=== PATIENT | male | born 1955 | race Caucasian/White ===

== ENCOUNTER 2016-04-07 09:39 | Outpatient (CLI) | payer MEDICARE, OTHER ==
[2016-04-07 10:28] LABS: #Basophils 0.1 thou/uL (0.0-0.2); #Eosinphils 0.3 thou/uL (0.0-0.7); #Lymphocytes 2.7 thou/uL (1.20-3.40); #Monocytes 0.5 thou/uL (0.11-0.59); #Neutrophils 2.4 thou/uL (1.40-6.50); %Basophils 2.3 % (0.0-1.0); %Eosinophils 4.2 % (0.0-10.0); %Lymphocytes 44.6 % (21.0-51.0); %Monocytes 8.9 % (0.0-10.0); Hemoglobin 17.4 g/dL (14.0-18.0); Mean Corpuscular Hemoglobin 31.1 pg (27.0-31.0); Mean Corpuscular Volume 91.5 fl (80.0-94.0); Mean Platelet Volume 8.6 fL (7.4-10.4); Platelet Count 193 thou/uL (130-400); RBC Distribution Width 12.2 % (11.5-14.5)
[2016-04-07 10:56] LABS: ALT (SGPT) 18 U/L (0-55); AST (SGOT) 15 U/L (5-34); Albumin 4.4 g/dL (3.4-4.8); Alkaline Phosphatase 165 U/L (40-150); Anion Gap 19 mmol/L (10-20); BUN (Urea Nitrogen) 16 mg/dL (8.4-25.7); Bilirubin, Direct 0.2 mg/dL (0.1-0.3); Bilirubin, Total 0.6 mg/dL (0.2-1.2); Calc. Creatinine Clearance 0 mL/min (70-130); Calcium 10.3 mg/dL (7.8-10.44); Carbon Dioxide 27 mmol/L (23-31); Chloride 99 mmol/L (98-107); Cholesterol 180 mg/dL (< 200 Desired); Estimated GFR-MDRD 57; Glucose 102 mg/dL (80-115); HDL Cholesterol 30 mg/dL (>60 Neg Risk); LDL Cholesterol, Calculated 94 mg/dL; Potassium 4.6 mmol/L (3.5-5.1); Protein, Total 7.6 g/dL (5.8-8.1); Sodium 140 mmol/L (136-145); Triglycerides 281 mg/dL (Less than 150)
== END 2016-04-07 09:40 | disposition home or self-care (01) ==
LOC: MADLABBHPM 09:39
PROVIDERS: ATTEND Family Medicine
DX: E78.5 Hyperlipidemia, unspecified (principal); F32.9 Major depressive disorder, single episode, unspecified; I25.10 Atherosclerotic heart disease of native coronary artery without angina pectoris; I10 Essential (primary) hypertension
CPT/HCPCS: 80048; 80061; 80076; 84443; 85025

== ENCOUNTER 2016-04-20 13:24 | Outpatient (CLI) | payer MEDICARE, OTHER ==
[2016-04-20 14:15] LABS: Bilirubin Negative (Negative); Blood, Urine Trace (Negative); Glucose, Urine (Dipstick) Negative (Negative); Leukocyte Small (Negative); Nitrite Positive (Negative); Protein, Urine (Dipstick) Negative (Neg-Trace); Urobilinogen 0.2 mg/dL (0.2-1.0); pH, Urine 5.5 (5.0-9.0)
[2016-04-20 14:20] LABS: Clarity Hazy (Clear)
[2016-04-20 14:21] LABS: Bacteria/HPF 1+ HPF (None Seen); RBC/HPF 0-3 HPF (0-3)
[2016-04-20 14:28] LABS: Hemoglobin 14.8 g/dL (14.0-18.0)
[2016-04-20 14:30] LABS: Anion Gap 15 mmol/L (10-20); BUN (Urea Nitrogen) 11 mg/dL (8.4-25.7); Calc. Creatinine Clearance 0 mL/min (70-130); Calcium 9.8 mg/dL (7.8-10.44); Carbon Dioxide 24 mmol/L (23-31); Chloride 106 mmol/L (98-107); Estimated GFR-MDRD 66; Glucose 96 mg/dL (80-115); Potassium 4.4 mmol/L (3.5-5.1); Sodium 141 mmol/L (136-145)
== END 2016-04-20 13:25 | disposition home or self-care (01) ==
LOC: MADLAB 13:24
PROVIDERS: ATTEND Internal Medicine Nephrology
DX: I12.9 Hypertensive chronic kidney disease with stage 1 through stage 4 chronic kidney disease, or unspecified chronic kidney disease (principal); N18.3 Chronic kidney disease, stage 3 (moderate); R80.9 Proteinuria, unspecified; R30.9 Painful micturition, unspecified; R53.83 Other fatigue
CPT/HCPCS: 36415; 80048; 81001; 85014; 85018; 87077; 87086; 87186

== ENCOUNTER 2016-07-15 11:03 | Outpatient (CLI) | payer MEDICARE, OTHER ==
[2016-07-15 11:48] LABS: #Basophils 0.2 thou/uL (0.0-0.2); #Eosinphils 0.2 thou/uL (0.0-0.7); #Lymphocytes 2.6 thou/uL (1.20-3.40); #Monocytes 0.7 thou/uL (0.11-0.59); #Neutrophils 2.4 thou/uL (1.40-6.50); %Basophils 2.9 % (0.0-1.0); %Eosinophils 3.7 % (0.0-10.0); %Lymphocytes 42.5 % (21.0-51.0); %Monocytes 10.9 % (0.0-10.0); %Neutrophils 40.1 % (42.0-75.0); Hemoglobin 16.7 g/dL (14.0-18.0); Mean Corpuscular HGB CONC 33.6 g/dL (32.0-36.0); Mean Corpuscular Hemoglobin 30.3 pg (27.0-31.0); Mean Corpuscular Volume 90.3 fl (80.0-94.0); Mean Platelet Volume 8.3 fL (7.4-10.4); Platelet Count 202 thou/uL (130-400); RBC Distribution Width 12.6 % (11.5-14.5); Red Blood Cell (RBC) Count 5.51 mill/uL (4.70-6.10)
[2016-07-15 12:05] LABS: ALT (SGPT) 13 U/L (0-55); AST (SGOT) 13 U/L (5-34); Albumin 4.2 g/dL (3.4-4.8); Alkaline Phosphatase 134 U/L (40-150); Anion Gap 14 mmol/L (10-20); BUN (Urea Nitrogen) 22 mg/dL (8.4-25.7); Bilirubin, Direct 0.2 mg/dL (0.1-0.3); Bilirubin, Total 0.5 mg/dL (0.2-1.2); Calc. Creatinine Clearance 0 mL/min (70-130); Calcium 9.9 mg/dL (7.8-10.44); Carbon Dioxide 23 mmol/L (23-31); Cardiac Risk 7.4 (Less than 4.5); Chloride 101 mmol/L (98-107); Cholesterol 184 mg/dL (< 200 Desired); Estimated GFR-MDRD 64; Glucose 95 mg/dL (80-115); HDL Cholesterol 25 mg/dL (>60 Neg Risk); LDL Cholesterol, Calculated 104 mg/dL; Potassium 4.4 mmol/L (3.5-5.1); Protein, Total 7.3 g/dL (5.8-8.1); Sodium 134 mmol/L (136-145); Triglycerides 277 mg/dL (Less than 150)
== END 2016-07-15 11:04 ==
LOC: MADLABBHPM 11:03
PROVIDERS: ATTEND Family Medicine
DX: I25.10 Atherosclerotic heart disease of native coronary artery without angina pectoris (principal); E53.9 Vitamin B deficiency, unspecified
CPT/HCPCS: 36415; 80048; 80061; 80076; 82607; 85025

== ENCOUNTER 2016-09-03 09:28 | Outpatient (CLI) | payer MEDICARE, OTHER ==
[2016-09-03 10:16] LABS: #Basophils 0.2 thou/uL (0.0-0.2); #Eosinphils 0.3 thou/uL (0.0-0.7); #Lymphocytes 3.2 thou/uL (1.20-3.40); #Monocytes 0.5 thou/uL (0.11-0.59); #Neutrophils 2.8 thou/uL (1.40-6.50); %Basophils 2.4 % (0.0-1.0); %Eosinophils 4.8 % (0.0-10.0); %Lymphocytes 45.9 % (21.0-51.0); %Monocytes 7.5 % (0.0-10.0); %Neutrophils 39.5 % (42.0-75.0); Mean Corpuscular HGB CONC 33.3 g/dL (32.0-36.0); Mean Corpuscular Hemoglobin 30.1 pg (27.0-31.0); Mean Corpuscular Volume 90.3 fl (80.0-94.0); Mean Platelet Volume 9.1 fL (7.4-10.4); Platelet Count 172 thou/uL (130-400); RBC Distribution Width 12.8 % (11.5-14.5); Red Blood Cell (RBC) Count 5.66 mill/uL (4.70-6.10)
[2016-09-03 10:37] LABS: ALT (SGPT) 14 U/L (8-55); AST (SGOT) 10 U/L (5-34); Albumin 3.9 g/dL (3.4-4.8); Alkaline Phosphatase 149 U/L (40-150); Anion Gap 13 mmol/L (10-20); BUN (Urea Nitrogen) 19 mg/dL (8.4-25.7); Bilirubin, Direct 0.2 mg/dL (0.1-0.3); Bilirubin, Total 0.4 mg/dL (0.2-1.2); Calc. Creatinine Clearance 0 mL/min (70-130); Calcium 9.6 mg/dL (7.8-10.44); Carbon Dioxide 26 mmol/L (23-31); Cardiac Risk 5.4 (Less than 4.5); Chloride 102 mmol/L (98-107); Cholesterol 173 mg/dl (< 200 Desired); Estimated GFR-MDRD 56; Glucose 136 mg/dL (80-115); HDL Cholesterol 32 mg/dL (>60 Neg Risk); LDL Cholesterol, Calculated 88 mg/dL; Protein, Total 7.1 g/dL (5.8-8.1); Sodium 137 mmol/L (136-145); Triglycerides 264 mg/dL (Less than 150)
== END 2016-09-03 09:29 | disposition home or self-care (01) ==
LOC: MADLABBHPM 09:28
PROVIDERS: ATTEND Family Medicine
DX: E78.5 Hyperlipidemia, unspecified (principal); F41.9 Anxiety disorder, unspecified; G45.9 Transient cerebral ischemic attack, unspecified; I25.10 Atherosclerotic heart disease of native coronary artery without angina pectoris
CPT/HCPCS: 36415; 80048; 80061; 80076; 84443; 85025

== ENCOUNTER 2016-09-17 13:24 | Emergency (ER) | payer MEDICARE | END 2016-09-17 14:35 | disposition home or self-care (01) | LOC: MADERS 13:24 | DX: M54.41 Lumbago with sciatica, right side (principal); G47.33 Obstructive sleep apnea (adult) (pediatric); I25.10 Atherosclerotic heart disease of native coronary artery without angina pectoris; K21.9 Gastro-esophageal reflux disease without esophagitis; G43.909 Migraine, unspecified, not intractable, without status migrainosus; J44.9 Chronic obstructive pulmonary disease, unspecified; F41.9 Anxiety disorder, unspecified; F32.9 Major depressive disorder, single episode, unspecified; J45.909 Unspecified asthma, uncomplicated; F17.210 Nicotine dependence, cigarettes, uncomplicated; Z86.73 Personal history of transient ischemic attack (TIA), and cerebral infarction without residual deficits; Z79.899 Other long term (current) drug therapy; Z79.82 Long term (current) use of aspirin | CPT/HCPCS: 99283 ==

== ENCOUNTER 2016-10-21 09:52 | Outpatient (CLI) | payer MEDICARE ==
--- NOTE | 2016-10-21 15:57 | CT ---
CT ABDOMEN AND PELVIS NONCONTRAST 10/21/16 HISTORY: Abdominal pain. IVC filter. COMPARISON: 01/29/16. FINDINGS: Iv contrast was not administered because of inability to gain venous access at the time of the exam. Each renal collecting system and ureter are decompressed without stone evident. Dystrophic peripher al calcification at the right pericardial fat pad has the appearance of an old fat infarct. The gall bladder is surgically absent. No solid organ abnormalities are apparent on the noncontrast enhanced exam. There is calcification in the arterial structures. The urinary bladder is decompressed by Fole y catheter. Diverticula arise from the colon without adjacent inflammation. A [place] type inferior vena cava filter is positioned within the inferior vena cava just below t he level of the renal veins. Romero catheter decompresses the urinary bladder. IMPRESSION: 1. Good CT position of the inferior vena cava filter. 2. Atherosclerosis. 3. Diverticulosis. No evidence of diverticulitis. POS: [facility]
== END 2016-10-21 09:53 | disposition home or self-care (01) ==
LOC: MADCT 09:52
PROVIDERS: ATTEND Family Medicine
DX: I25.10 Atherosclerotic heart disease of native coronary artery without angina pectoris (principal); K57.30 Diverticulosis of large intestine without perforation or abscess without bleeding; I70.90 Unspecified atherosclerosis
CPT/HCPCS: 36415; 74176; 82565

== ENCOUNTER 2016-11-08 13:29 | Emergency (ER) | payer MEDICARE ==
[~2016-11-08 13:29] MED LIST: Sodium Chloride 0.9% 1,000 ML BAG ONE
[2016-11-08] MEDS ORDERED: Ketorolac Tromethamine 30 MG/ML VIAL ONE (14:32)
[2016-11-08] MEDS ORDERED: Ondansetron HCl/PF 4 MG/2 ML Vial ONE (14:32)
[2016-11-08 14:36] LABS: #Basophils 0.1 thou/uL (0.0-0.2); #Eosinphils 0.2 thou/uL (0.0-0.7); #Monocytes 1.4 thou/uL (0.11-0.59); #Neutrophils 8.6 thou/uL (1.40-6.50); %Basophils 0.7 % (0.0-1.0); %Eosinophils 1.4 % (0.0-10.0); %Lymphocytes 22.5 % (21.0-51.0); %Monocytes 10.2 % (0.0-10.0); %Neutrophils 65.2 % (42.0-75.0); Hemoglobin 14.5 g/dL (14.0-18.0); Mean Corpuscular HGB CONC 33.1 g/dL (32.0-36.0); Mean Corpuscular Hemoglobin 29.8 pg (27.0-31.0); Mean Corpuscular Volume 90.2 fl (80.0-94.0); Mean Platelet Volume 8.4 fL (7.4-10.4); Platelet Count 158 thou/uL (130-400); RBC Distribution Width 13.5 % (11.5-14.5); Red Blood Cell (RBC) Count 4.85 mill/uL (4.70-6.10); White Blood Cell (WBC) Count 13.2 thou/uL (4.8-10.8)
[2016-11-08 14:55] LABS: Anion Gap 14 mmol/L (10-20); BUN (Urea Nitrogen) 14 mg/dL (8.4-25.7); Calc. Creatinine Clearance 0 mL/min (70-130); Calcium 9.7 mg/dL (7.8-10.44); Carbon Dioxide 26 mmol/L (23-31); Chloride 99 mmol/L (98-107); Estimated GFR-MDRD 53; Glucose 113 mg/dL (80-115); Potassium 3.9 mmol/L (3.5-5.1); Sodium 135 mmol/L (136-145)
--- NOTE | 2016-11-08 15:15 | CT ---
CT STONE PROTOCOL ABDOMEN AND PELVIS WITHOUT CONTRAST: HISTORY: Right-sided pain for 2 days. Evaluate for stone. COMPARISON: CT abdomen and pelvis without contrast 10/21/16. FINDINGS: There is right pericardiophrenic fat necrosis with peripheral calcifications. No pericardial effusion. Lung bases are clear. No nephroureterolithiasis or hydroureteral nephrosis. No secondary evidence of recently passed ston e. Infrarenal IVC filter is in place. Numerous small left periaortic lymph nodes are present. Moderate diverticular disease of sigmoid co vinay without evidence of active inflammation. Romero catheter has been placed which may be chronic as there is some abnormal wall thickening of the urinary bladder which may be reactive. There has been prior cholecystectomy. There is fatty atrophy of the pancreas. Numerous lymph nodes are present throughout the small bowel mesentery which appear increased in numb er, although not increased in size. Aortic contour is without aneurysmal dilatation. 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 Mild facet arthrosis of the lower lumbar spine. IMPRESSION: 1. No nephroureterolithiasis or hydroureteral nephrosis. No secondary evidence of recently passed stone. 2. Diverticular disease without active inflammation. 3. A few mildly increased in number small bowel mesenteric lymph nodes that may be reactive. 4. Wall thickening of the urinary bladder. This may be sequelae of a chronic indwelling Romero cath eter. POS: [facility]
[2016-11-08 15:24] LABS: Clarity Cloudy (Clear); Glucose, Urine (Dipstick) Negative (Negative); Leukocyte Moderate (Negative); Nitrite Positive (Negative); Protein, Urine (Dipstick) Negative (Neg-Trace)
[2016-11-08 15:25] LABS: Bilirubin Negative (Negative); Blood, Urine Small (Negative)
[2016-11-08 15:28] LABS: RBC/HPF 0-3 HPF (0-3)
[2016-11-08 15:30] LABS: Bacteria/HPF 2+ HPF (None Seen); Crystals/HPF 4+ AMORPH PHOS HPF (Negative); WBC/HPF 21-50 HPF (0-3)
== END 2016-11-08 16:10 | disposition home or self-care (01) ==
LOC: MADERS 13:29
DX: N23 Unspecified renal colic (principal); N39.0 Urinary tract infection, site not specified; G47.33 Obstructive sleep apnea (adult) (pediatric); I25.10 Atherosclerotic heart disease of native coronary artery without angina pectoris; K21.9 Gastro-esophageal reflux disease without esophagitis; F41.9 Anxiety disorder, unspecified; F17.210 Nicotine dependence, cigarettes, uncomplicated; F32.9 Major depressive disorder, single episode, unspecified; J44.9 Chronic obstructive pulmonary disease, unspecified; Z86.711 Personal history of pulmonary embolism; Z86.73 Personal history of transient ischemic attack (TIA), and cerebral infarction without residual deficits
CPT/HCPCS: 36415; 74176; 80048; 81003; 81015; 85025; 96361; 96374; 96375; J1885; J2405; J7050

== ENCOUNTER 2016-11-24 10:03 | Emergency (ER) | payer MEDICARE, OTHER ==
[~2016-11-24 10:03] MED LIST changes: +Sodium Chloride 0.9% 100 ML BAG ONE
[2016-11-24] MEDS ORDERED: Dexamethasone 10 MG/ML VIAL ONE (10:30)
--- NOTE | 2016-11-24 10:42 | RAD ---
UPRIGHT PORTABLE CHEST ONE VIEWS: History: 61-year-old male with dyspnea. Comparison: 09-21-15 FINDINGS: Post underlying sternotomy. Heart size within normal limits. The lungs are clear of acute process. IMPRESSION: No acute intrathoracic disease. Post underlying sternotomy. Stable chest from prior study. POS: [facility]
[2016-11-24 10:54] LABS: #Basophils 0.2 thou/uL (0.0-0.2); #Eosinphils 0.2 thou/uL (0.0-0.7); #Lymphocytes 1.8 thou/uL (1.20-3.40); #Monocytes 0.7 thou/uL (0.11-0.59); #Neutrophils 5.4 thou/uL (1.40-6.50); %Basophils 2.1 % (0.0-1.0); %Eosinophils 2.8 % (0.0-10.0); %Lymphocytes 21.9 % (21.0-51.0); %Monocytes 8.7 % (0.0-10.0); %Neutrophils 64.6 % (42.0-75.0); Hemoglobin 15.8 g/dL (14.0-18.0); Mean Corpuscular HGB CONC 34.6 g/dL (32.0-36.0); Mean Corpuscular Hemoglobin 31.1 pg (27.0-31.0); Mean Corpuscular Volume 89.9 fl (80.0-94.0); Mean Platelet Volume 8.4 fL (7.4-10.4); Platelet Count 180 thou/uL (130-400); RBC Distribution Width 13.3 % (11.5-14.5); Red Blood Cell (RBC) Count 5.08 mill/uL (4.70-6.10); White Blood Cell (WBC) Count 8.4 thou/uL (4.8-10.8)
[2016-11-24 11:05] LABS: ALT (SGPT) 18 U/L (8-55); AST (SGOT) 16 U/L (5-34); Albumin 3.8 g/dL (3.4-4.8); Alkaline Phosphatase 134 U/L (40-150); Anion Gap 13 mmol/L (10-20); BUN (Urea Nitrogen) 13 mg/dL (8.4-25.7); Bilirubin, Total 0.7 mg/dL (0.2-1.2); Calc. Creatinine Clearance 0 mL/min (70-130); Calcium 9.7 mg/dL (7.8-10.44); Carbon Dioxide 24 mmol/L (23-31); Chloride 107 mmol/L (98-107); Estimated GFR-MDRD 64; Globulin 3.2 g/dL (2.4-3.5); Glucose 100 mg/dL (80-115); Sodium 140 mmol/L (136-145)
--- NOTE | 2016-11-24 13:06 | CT ---
CT NECK WITH CONTRAST: Date: 11/24/16 HISTORY: 61-year-old male with burning throat pain since yesterday. FINDINGS: There is diffuse edema causing soft tissue swelling of the larynx, including involvement of bilatera l false vocal cords (and probably the true vocal cords also), bilateral aryepiglottic folds, and epi glottis. The paraglottic fat is infiltrated with edema. There is also increased mucosal enhancement and irregularity of the mucosal surfaces, of the bilateral piriform sinuses, with partial effacement of the piriform sinuses. There is partial effacement of the vallecula. There is edema of the shipping weigher ior pharyngeal wall. No discrete, focal rim enhancing fluid collection is identified to indicate abs cess in the larynx, hypopharynx, or retropharyngeal space. There are anterior metallic plate and scr ews with interbody cage, and successful osseous ankylosis, at C5-6. There is also edema and soft tissue swelling of the adenoids. No definite involvement of the lingual tonsil. Lucas tonsils are either absent or atrophic, and are not involved by the edema. Atherosclerotic calcification of bilateral proximal internal carotid arteries, including carotid bul bs. No other pathology of the carotid space. Scattered bilateral shotty cervical lymph nodes. 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 No pathology of the thyroid gland identified. Lung apices are essentially clear. IMPRESSION: 1. Diffuse, somewhat severe laryngitis, with edema involving the entire larynx and hypopharynx. 2. No abscess identified. 3. Status post anterior cervical fusion and diskectomy at C5-6. POS: [facility]
[2016-11-24] MEDS ORDERED: Clindamycin/D5W 900 mg/50 ml Premix Bag ONE (13:45)
[2016-11-24] MEDS ORDERED: Piperacillin/Tazobactam 4.5 GM VIAL ONE (14:03)
== END 2016-11-24 14:50 | disposition short-term general hospital (02) ==
LOC: MADERS 10:03
DX: J04.30 Supraglottitis, unspecified, without obstruction (principal); I10 Essential (primary) hypertension; I25.10 Atherosclerotic heart disease of native coronary artery without angina pectoris; K21.9 Gastro-esophageal reflux disease without esophagitis; G43.909 Migraine, unspecified, not intractable, without status migrainosus; G47.33 Obstructive sleep apnea (adult) (pediatric); J45.909 Unspecified asthma, uncomplicated; F32.9 Major depressive disorder, single episode, unspecified; F41.9 Anxiety disorder, unspecified; F17.210 Nicotine dependence, cigarettes, uncomplicated; Z79.82 Long term (current) use of aspirin; Z86.73 Personal history of transient ischemic attack (TIA), and cerebral infarction without residual deficits; Z86.711 Personal history of pulmonary embolism; Z79.891 Long term (current) use of opiate analgesic
CPT/HCPCS: 36416; 70491; 71010; 80053; 85025; 85652; 87040; 87077; 87081; 87149; 87430; 96361; 96365; 96368; 96375; J1100; J2543; J3490; J7050

== ENCOUNTER 2016-12-01 15:32 | Outpatient (CLI) | payer MEDICARE | END 2016-12-01 15:33 | disposition home or self-care (01) | LOC: MADLABBHPM 15:32 | PROVIDERS: ATTEND Family Medicine | DX: R78.81 Bacteremia (principal) | CPT/HCPCS: 36415 ==

== ENCOUNTER 2016-12-17 19:48 | Emergency (ER) | payer MEDICARE ==
[2016-12-17] MEDS ORDERED: Ondansetron HCl/PF 4 MG/2 ML Vial ONE (21:10)
[2016-12-17 21:33] LABS: #Basophils 0.1 thou/uL (0.0-0.2); #Eosinphils 0.1 thou/uL (0.0-0.7); #Lymphocytes 1.7 thou/uL (1.20-3.40); #Monocytes 0.5 thou/uL (0.11-0.59); %Basophils 1.1 % (0.0-1.0); %Eosinophils 0.9 % (0.0-10.0); %Lymphocytes 26.8 % (21.0-51.0); %Monocytes 7.9 % (0.0-10.0); %Neutrophils 63.3 % (42.0-75.0); Hemoglobin 16.9 g/dL (14.0-18.0); Mean Corpuscular HGB CONC 32.6 g/dL (32.0-36.0); Mean Corpuscular Hemoglobin 29.1 pg (27.0-31.0); Mean Corpuscular Volume 89.4 fl (80.0-94.0); Mean Platelet Volume 8.2 fL (7.4-10.4); Platelet Count 262 thou/uL (130-400); RBC Distribution Width 12.6 % (11.5-14.5); Red Blood Cell (RBC) Count 5.78 mill/uL (4.70-6.10); White Blood Cell (WBC) Count 6.3 thou/uL (4.8-10.8)
[2016-12-17 21:55] LABS: ALT (SGPT) 29 U/L (8-55); AST (SGOT) 13 U/L (5-34); Albumin 4.2 g/dL (3.4-4.8); Alkaline Phosphatase 144 U/L (40-150); Anion Gap 15 mmol/L (10-20); BUN (Urea Nitrogen) 14 mg/dL (8.4-25.7); Calc. Creatinine Clearance 0 mL/min (70-130); Calcium 11.2 mg/dL (7.8-10.44); Carbon Dioxide 21 mmol/L (23-31); Chloride 108 mmol/L (98-107); Estimated GFR-MDRD 70; Glucose 108 mg/dL (80-115); Potassium 3.9 mmol/L (3.5-5.1); Protein, Total 8.2 g/dL (5.8-8.1); Sodium 140 mmol/L (136-145)
[2016-12-17 21:58] LABS: Lipase Less than 4 U/L (8-78)
[2016-12-17 22:02] LABS: Clarity Cloudy (Clear)
[2016-12-17 22:03] LABS: Bilirubin Small (Negative); Blood, Urine Trace (Negative); Glucose, Urine (Dipstick) Negative (Negative); Leukocyte Large (Negative); Nitrite Positive (Negative); Protein, Urine (Dipstick) > or equal to 300 mg/dL (Neg-Trace); pH, Urine Greater than 9.0 (5.0-9.0)
[2016-12-17 22:04] LABS: Bacteria/HPF 4+ HPF (None Seen); Squamous Epithelial 21-50 HPF (0-3)
[2016-12-17] MEDS ORDERED: Ondansetron ODT 4 MG TAB ONE (22:10)
[2016-12-17] MEDS ORDERED: Nitrofurantoin Monohyd/M-Cryst 100 MG CAP ONE (22:42)
--- NOTE | 2016-12-17 22:42 | RAD ---
EXAM: ONE VIEW CHEST TWO VIEWS ABDOMEN 12/17/16 COMPARISON: 03/09/10, one view chest 11/24/16. FINDINGS: CHEST ONE VIEW: Increased density in the right pericardial region corresponds to calcification noted on stone CT, . Normal cardiac silhouette. Atherosclerosis of the aorta. Pulmonary vessels and hilum are normal. Cos tophrenic angles are clear. Hyperinflation, without consolidation or mass. No pneumothorax or osseou s abnormalities. ABDOMEN TWO VIEWS: Limited evaluation due to motion. Scattered fecal material in a nondistended, nondilated colon. No e vidence of small bowel distention or dilatation. No differential air fluid levels. No pneumoperitone um. No suspicious densities in the abdomen or pelvis. IMPRESSION: 1. No acute cardiopulmonary process. 2. Nonspecific bowel gas pattern. POS: [facility]
== END 2016-12-17 23:15 ==
LOC: MADERS 19:48
DX: N39.0 Urinary tract infection, site not specified (principal); R11.2 Nausea with vomiting, unspecified; G47.33 Obstructive sleep apnea (adult) (pediatric); I25.10 Atherosclerotic heart disease of native coronary artery without angina pectoris; K21.9 Gastro-esophageal reflux disease without esophagitis; J44.9 Chronic obstructive pulmonary disease, unspecified; F41.9 Anxiety disorder, unspecified; F17.210 Nicotine dependence, cigarettes, uncomplicated; F32.9 Major depressive disorder, single episode, unspecified; Z86.73 Personal history of transient ischemic attack (TIA), and cerebral infarction without residual deficits; Z79.82 Long term (current) use of aspirin; Z86.711 Personal history of pulmonary embolism; Z79.899 Other long term (current) drug therapy
CPT/HCPCS: 36416; 74022; 80053; 81003; 81015; 82150; 83690; 85025; 36415-59; J2405; Q0162

== ENCOUNTER 2016-12-20 13:05 | Emergency (ER) | payer MEDICARE, OTHER ==
--- NOTE | 2016-12-20 13:35 | RAD ---
CHEST 1 VIEW: Date: 12/20/16 HISTORY: Chest pain. COMPARISON: 12/17/16. FINDINGS: Cardiac silhouette is magnified by projection. Pulmonary vasculature is unremarkable. Mediastinum is midline with postoperative changes. No lobar consolidation or pneumothorax are apparent. Postoperat luis a changes of the left shoulder are evident. IMPRESSION: Chronic-type findings are stable. No active cardiopulmonary abnormalities are demonstrated. POS: [facility]
[2016-12-20] MEDS ORDERED: Ondansetron ODT 4 MG TAB ONE (13:55)
[2016-12-20] MEDS ORDERED: Lorazepam 2 MG/ML VIAL ONE (14:04)
[2016-12-20 14:23] LABS: Hemoglobin 17.9 g/dL (14.0-18.0); Mean Corpuscular HGB CONC 32.9 g/dL (32.0-36.0); Mean Corpuscular Hemoglobin 29.1 pg (27.0-31.0); Mean Corpuscular Volume 88.5 fL (80.0-94.0); Platelet Count 354 thou/uL (130-400); RBC Distribution Width 12.9 % (11.5-14.5); Red Blood Cell (RBC) Count 6.15 mill/uL (4.70-6.10); White Blood Cell (WBC) Count 12.5 thou/uL (4.8-10.8)
[2016-12-20 14:24] LABS: %Basophils 1.7 % (0.0-1.0); %Eosinophils 1.8 % (0.0-10.0); %Lymphocytes 25.8 % (21.0-51.0); %Neutrophils 60.7 % (42.0-75.0); Mean Platelet Volume 6.9 fL (7.4-10.4)
[2016-12-20 14:25] LABS: #Basophils 0.2 thou/uL (0.0-0.2); #Eosinphils 0.2 thou/uL (0.0-0.7); #Lymphocytes 3.2 thou/uL (1.20-3.40); #Monocytes 1.3 thou/uL (0.11-0.59); #Neutrophils 7.6 thou/uL (1.40-6.50)
[2016-12-20 14:35] LABS: CKMB 5.2 ng/mL (0-6.6)
== END 2016-12-20 17:15 | disposition home or self-care (01) ==
LOC: MADERS 13:05
DX: F43.0 Acute stress reaction (principal); K21.9 Gastro-esophageal reflux disease without esophagitis; G43.909 Migraine, unspecified, not intractable, without status migrainosus; G47.33 Obstructive sleep apnea (adult) (pediatric); F31.9 Bipolar disorder, unspecified; F17.210 Nicotine dependence, cigarettes, uncomplicated; Z86.73 Personal history of transient ischemic attack (TIA), and cerebral infarction without residual deficits
CPT/HCPCS: 71010; 82553; 84484; 85025; 93005; 94760; 96372; J2060; Q0162

== ENCOUNTER 2016-12-21 08:15 | Emergency (ER) | payer MEDICARE ==
[~2016-12-21 08:15] MED LIST changes: -Sodium Chloride 0.9% 100 ML BAG ONE
[2016-12-21] MEDS ORDERED: Ketorolac Tromethamine 30 MG/ML VIAL ONE (09:47)
[2016-12-21] MEDS ORDERED: Ondansetron HCl/PF 4 MG/2 ML Vial ONE (09:47)
[2016-12-21 09:57] LABS: #Basophils 0.1 thou/uL (0.0-0.2); #Eosinphils 0.2 thou/uL (0.0-0.7); #Lymphocytes 3.1 thou/uL (1.20-3.40); #Monocytes 1.1 thou/uL (0.11-0.59); #Neutrophils 5.4 thou/uL (1.40-6.50); %Basophils 0.8 % (0.0-1.0); %Eosinophils 1.8 % (0.0-10.0); %Lymphocytes 31.1 % (21.0-51.0); %Monocytes 11.6 % (0.0-10.0); %Neutrophils 54.7 % (42.0-75.0); Hemoglobin 16.5 g/dL (14.0-18.0); Mean Corpuscular HGB CONC 33.4 g/dL (32.0-36.0); Mean Corpuscular Volume 89.7 fl (80.0-94.0); Mean Platelet Volume 6.6 fL (7.4-10.4); Platelet Count 409 thou/uL (130-400); RBC Distribution Width 12.7 % (11.5-14.5); Red Blood Cell (RBC) Count 5.52 mill/uL (4.70-6.10); White Blood Cell (WBC) Count 9.8 thou/uL (4.8-10.8)
[2016-12-21 10:13] LABS: Clarity Hazy (Clear); Glucose, Urine (Dipstick) 250 mg/dL (Negative); Leukocyte Trace (Negative); Nitrite Negative (Negative); Protein, Urine (Dipstick) 30 mg/dL (Neg-Trace); Specific Gravity, Urine 1.025 (1.005-1.030); Urobilinogen 0.2 mg/dL (0.2-1.0)
[2016-12-21 10:14] LABS: Bacteria/HPF 1+ HPF (None Seen); Bilirubin Small (Negative); Blood, Urine Moderate (Negative); Squamous Epithelial 0-3 HPF (0-3)
[2016-12-21 10:20] LABS: ALT (SGPT) 21 U/L (8-55); AST (SGOT) 16 U/L (5-34); Albumin 4.1 g/dL (3.4-4.8); Alkaline Phosphatase 136 U/L (40-150); Anion Gap 16 mmol/L (10-20); BUN (Urea Nitrogen) 24 mg/dL (8.4-25.7); Calc. Creatinine Clearance 0 mL/min (70-130); Calcium 10.3 mg/dL (7.8-10.44); Carbon Dioxide 19 mmol/L (23-31); Chloride 107 mmol/L (98-107); Estimated GFR-MDRD 61; Globulin 3.3 g/dL (2.4-3.5); Glucose 97 mg/dL (80-115); Potassium 3.8 mmol/L (3.5-5.1); Protein, Total 7.4 g/dL (5.8-8.1); Sodium 138 mmol/L (136-145)
--- NOTE | 2016-12-21 13:27 | CT ---
CT ABDOMEN WITH IV CONTRAST: CT PELVIS WITH CONTRAST: 12/21/2016 HISTORY: Mid and lower abdominal pain, which started today. COMPARISON: Noncontrast study on 11/08/2016, as well as post contrast exam on 10/09/2013. FINDINGS: Again noted is the area of fat necrosis, in an epicardial location, to the right of midline, as well as anteriorly. These areas are incompletely imaged on today's examination but do persist. Post cholecystectomy changes are present. The lung bases, liver, spleen, fatty replaced pancreas, bilateral kidneys, bilateral adrenal glands, and opacified small bowel demonstrate a normal CT appearance. There is colonic diverticulosis involving the sigmoid colon, without CT findings to suggest divertic ulitis. A Romero catheter is seen in a decompressed urinary bladder. The appendix is not visualized and is likely surgically absent. The inferior vena cava filter is again noted in place. There is a focal area of decreased attenuati on seen, centrally within the IVC filter, which is likely artifactual, as there is dense contrast wi thin the IVC, secondary to injection in the right lower extremity. There is no other interval change from the prior studies. Again noted is osteonecrosis involving th e femoral heads bilaterally, without collapse. IMPRESSION: 1. No acute findings are seen in the abdomen or pelvis. 2. Colonic diverticulosis. 3. Post cholecystectomy changes. 4. Osteonecrosis without collapse involving the femoral heads bilaterally, also seen on prior studi es. POS: [facility]
[2016-12-21] MEDS ORDERED: Iopamidol 370 76% 100 ML VIAL ONE (13:46)
== END 2016-12-21 13:25 | disposition home or self-care (01) ==
LOC: MADERS 08:15
DX: K52.9 Noninfective gastroenteritis and colitis, unspecified (principal); N39.0 Urinary tract infection, site not specified; G47.33 Obstructive sleep apnea (adult) (pediatric); I25.10 Atherosclerotic heart disease of native coronary artery without angina pectoris; K21.9 Gastro-esophageal reflux disease without esophagitis; Z86.711 Personal history of pulmonary embolism; I10 Essential (primary) hypertension; J44.9 Chronic obstructive pulmonary disease, unspecified; Z86.73 Personal history of transient ischemic attack (TIA), and cerebral infarction without residual deficits; F41.9 Anxiety disorder, unspecified; F32.9 Major depressive disorder, single episode, unspecified; F17.210 Nicotine dependence, cigarettes, uncomplicated; Z79.899 Other long term (current) drug therapy
CPT/HCPCS: 74177; 80053; 81003; 81015; 85025; 96361; 96374; 96375; J1885; J2405; J7050

== ENCOUNTER 2017-03-09 10:32 | Outpatient (CLI) | payer MEDICARE ==
[2017-03-09 11:24] LABS: Hemoglobin 15.6 g/dL (14.0-18.0); Mean Corpuscular Hemoglobin 30.8 pg (27.0-31.0); Mean Corpuscular Volume 90.5 fl (80.0-94.0); Mean Platelet Volume 7.8 fL (7.4-10.4); Platelet Count 187 thou/uL (130-400); RBC Distribution Width 12.5 % (11.5-14.5); Red Blood Cell (RBC) Count 5.05 mill/uL (4.70-6.10); White Blood Cell (WBC) Count 6.1 thou/uL (4.8-10.8)
[2017-03-09 11:33] LABS: ALT (SGPT) 16 U/L (8-55); AST (SGOT) 12 U/L (5-34); Albumin 4.1 g/dL (3.4-4.8); Alkaline Phosphatase 118 U/L (40-150); Anion Gap 15 mmol/L (10-20); BUN (Urea Nitrogen) 14 mg/dL (8.4-25.7); Calc. Creatinine Clearance 0 mL/min (70-130); Calcium 10.1 mg/dL (7.8-10.44); Carbon Dioxide 26 mmol/L (23-31); Cardiac Risk 6.5 (Less than 4.5); Chloride 104 mmol/L (98-107); Cholesterol 162 mg/dl (< 200 Desired); Estimated GFR-MDRD 80; Globulin 3.3 g/dL (2.4-3.5); Glucose 91 mg/dL (80-115); HDL Cholesterol 25 mg/dL (>60 Neg Risk); LDL Cholesterol, Calculated 93 mg/dL; Potassium 3.8 mmol/L (3.5-5.1); Protein, Total 7.4 g/dL (5.8-8.1); Sodium 141 mmol/L (136-145); Triglycerides 219 mg/dL (Less than 150)
== END 2017-03-09 10:33 | disposition home or self-care (01) ==
LOC: MADLAB 10:32
PROVIDERS: ATTEND Psychiatry & Neurology Psychiatry
DX: Z01.812 Encounter for preprocedural laboratory examination (principal); F33.2 Major depressive disorder, recurrent severe without psychotic features
CPT/HCPCS: 36415; 80053; 80061; 80164; 85027

== ENCOUNTER 2017-03-23 10:00 | Outpatient (CLI) | payer MEDICARE ==
[2017-03-23 10:46] LABS: Hemoglobin 16.7 g/dL (14.0-18.0); Mean Corpuscular HGB CONC 33.1 g/dL (32.0-36.0); Mean Corpuscular Volume 90.5 fl (80.0-94.0); Mean Platelet Volume 7.9 fL (7.4-10.4); Platelet Count 204 thou/uL (130-400); RBC Distribution Width 12.2 % (11.5-14.5); Red Blood Cell (RBC) Count 5.58 mill/uL (4.70-6.10); White Blood Cell (WBC) Count 8.2 thou/uL (4.8-10.8)
[2017-03-23 11:13] LABS: ALT (SGPT) 16 U/L (8-55); AST (SGOT) 15 U/L (5-34); Albumin 4.2 g/dL (3.4-4.8); Alkaline Phosphatase 134 U/L (40-150); Anion Gap 15 mmol/L (10-20); BUN (Urea Nitrogen) 16 mg/dL (8.4-25.7); Bilirubin, Total 0.5 mg/dL (0.2-1.2); Calc. Creatinine Clearance 0 mL/min (70-130); Calcium 10.2 mg/dL (7.8-10.44); Carbon Dioxide 29 mmol/L (23-31); Cardiac Risk 8.7 (Less than 4.5); Chloride 101 mmol/L (98-107); Cholesterol 209 mg/dl (< 200 Desired); Estimated GFR-MDRD 55; Globulin 3.5 g/dL (2.4-3.5); Glucose 90 mg/dL (80-115); HDL Cholesterol 24 mg/dL (>60 Neg Risk); LDL Cholesterol, Calculated 129 mg/dL; Potassium 4.4 mmol/L (3.5-5.1); Protein, Total 7.7 g/dL (5.8-8.1); Sodium 141 mmol/L (136-145); Triglycerides 279 mg/dL (Less than 150)
== END 2017-03-23 10:01 | disposition home or self-care (01) ==
LOC: MADLABBHPM 10:00
PROVIDERS: ATTEND Psychiatry & Neurology Psychiatry
DX: F33.2 Major depressive disorder, recurrent severe without psychotic features (principal)
CPT/HCPCS: 36415; 80053; 80061; 80164; 85027

== ENCOUNTER 2017-04-07 09:39 | Outpatient (CLI) | payer MEDICARE | END 2017-04-07 09:40 | disposition home or self-care (01) | LOC: MADLABBHPM 09:39 | PROVIDERS: ATTEND Psychiatry & Neurology Psychiatry | DX: F33.2 Major depressive disorder, recurrent severe without psychotic features (principal) | CPT/HCPCS: 36415; 80164 ==

== ENCOUNTER 2017-04-23 18:53 | Emergency (ER) | payer MEDICARE, OTHER ==
[2017-04-23] MEDS ORDERED: Promethazine 25 MG TAB ONE (20:05)
--- NOTE | 2017-04-23 20:05 | RAD ---
TWO VIEWS OF THE ABDOMEN UPRIGHT VIEW OF THE CHEST 04/23/17 COMPARISON: 12/17/16 HISTORY: Nausea and vomiting. FINDINGS: Supine and upright views of the abdomen and upright view of the chest shows a nonspecific, nonobstruc malik bowel gas pattern. Cholecystectomy clips are seen. An inferior vena cava filter is visualized. No free air or air fluid levels are seen on upright examination. The heart is normal in size. The patient is status post sternotomy. There is no evidence of consolida tion, mass or pleural effusion. IMPRESSION: Nonobstructive bowel gas pattern. POS: [facility]
[2017-04-23 20:12] LABS: #Basophils 0.1 thou/uL (0.0-0.2); #Eosinphils 0.1 thou/uL (0.0-0.7); #Lymphocytes 1.7 thou/uL (1.20-3.40); #Monocytes 0.6 thou/uL (0.11-0.59); #Neutrophils 5.7 thou/uL (1.40-6.50); %Basophils 1.3 % (0.0-1.0); %Eosinophils 1.1 % (0.0-10.0); %Lymphocytes 20.6 % (21.0-51.0); %Monocytes 7.7 % (0.0-10.0); %Neutrophils 69.3 % (42.0-75.0); Hemoglobin 17.3 g/dL (14.0-18.0); Mean Corpuscular Hemoglobin 29.7 pg (27.0-31.0); Mean Corpuscular Volume 89.9 fl (80.0-94.0); Mean Platelet Volume 7.9 fL (7.4-10.4); Platelet Count 197 thou/uL (130-400); RBC Distribution Width 11.9 % (11.5-14.5); Red Blood Cell (RBC) Count 5.85 mill/uL (4.70-6.10); White Blood Cell (WBC) Count 8.2 thou/uL (4.8-10.8)
[2017-04-23 20:16] LABS: Bilirubin Negative (Negative); Blood, Urine Small (Negative); Glucose, Urine (Dipstick) Negative (Negative); Leukocyte Small (Negative); Nitrite Positive (Negative); Protein, Urine (Dipstick) 30 mg/dL (Neg-Trace); Specific Gravity, Urine 1.015 (1.005-1.030)
[2017-04-23 20:20] LABS: Clarity Hazy (Clear)
[2017-04-23 20:21] LABS: Bacteria/HPF 4+ HPF (None Seen); WBC/HPF 21-50 HPF (0-3)
[2017-04-23 20:32] LABS: ALT (SGPT) 24 U/L (8-55); AST (SGOT) 22 U/L (5-34); Albumin 4.7 g/dL (3.4-4.8); Alkaline Phosphatase 117 U/L (40-150); Anion Gap 19 mmol/L (10-20); BUN (Urea Nitrogen) 13 mg/dL (8.4-25.7); Bilirubin, Total 0.9 mg/dL (0.2-1.2); Calc. Creatinine Clearance 0 mL/min (70-130); Calcium 10.7 mg/dL (7.8-10.44); Carbon Dioxide 21 mmol/L (23-31); Chloride 102 mmol/L (98-107); Estimated GFR-MDRD 70; Globulin 3.8 g/dL (2.4-3.5); Glucose 90 mg/dL (80-115); Lipase 5 U/L (8-78); Potassium 4.2 mmol/L (3.5-5.1); Protein, Total 8.5 g/dL (5.8-8.1); Sodium 138 mmol/L (136-145)
[2017-04-23] MEDS ORDERED: Nitrofurantoin Monohyd/M-Cryst 100 MG CAP ONE (20:49)
== END 2017-04-23 21:20 | disposition home or self-care (01) ==
LOC: MADERS 18:53
DX: N30.00 Acute cystitis without hematuria (principal); K52.9 Noninfective gastroenteritis and colitis, unspecified; G47.33 Obstructive sleep apnea (adult) (pediatric); I25.10 Atherosclerotic heart disease of native coronary artery without angina pectoris; K21.9 Gastro-esophageal reflux disease without esophagitis; G43.909 Migraine, unspecified, not intractable, without status migrainosus; I10 Essential (primary) hypertension; J44.9 Chronic obstructive pulmonary disease, unspecified; F41.9 Anxiety disorder, unspecified; F32.9 Major depressive disorder, single episode, unspecified; F17.210 Nicotine dependence, cigarettes, uncomplicated; Z79.82 Long term (current) use of aspirin; Z79.899 Other long term (current) drug therapy; Z86.73 Personal history of transient ischemic attack (TIA), and cerebral infarction without residual deficits; Z79.02 Long term (current) use of antithrombotics/antiplatelets
CPT/HCPCS: 74022; 80053; 81003; 81015; 83605; 83690; 85025; 87086; 96360; J7050

== ENCOUNTER 2017-05-12 14:43 | Emergency (ER) | payer MEDICARE, OTHER ==
[2017-05-12 15:35] LABS: #Basophils 0.1 thou/uL (0.0-0.2); #Eosinphils 0.2 thou/uL (0.0-0.7); #Lymphocytes 2.5 thou/uL (1.20-3.40); #Monocytes 0.6 thou/uL (0.11-0.59); #Neutrophils 4.2 thou/uL (1.40-6.50); %Basophils 1.7 % (0.0-1.0); %Eosinophils 2.8 % (0.0-10.0); %Lymphocytes 32.5 % (21.0-51.0); %Monocytes 8.4 % (0.0-10.0); %Neutrophils 54.7 % (42.0-75.0); Hemoglobin 17.3 g/dL (14.0-18.0); Mean Corpuscular HGB CONC 33.1 g/dL (32.0-36.0); Mean Corpuscular Hemoglobin 29.3 pg (27.0-31.0); Mean Corpuscular Volume 88.4 fl (80.0-94.0); Mean Platelet Volume 7.2 fL (7.4-10.4); Platelet Count 254 thou/uL (130-400); RBC Distribution Width 11.8 % (11.5-14.5); Red Blood Cell (RBC) Count 5.89 mill/uL (4.70-6.10); White Blood Cell (WBC) Count 7.6 thou/uL (4.8-10.8)
[2017-05-12 15:48] LABS: ALT (SGPT) 25 U/L (8-55); AST (SGOT) 13 U/L (5-34); Albumin 4.3 g/dL (3.4-4.8); Alkaline Phosphatase 146 U/L (40-150); Anion Gap 16 mmol/L (10-20); BUN (Urea Nitrogen) 18 mg/dL (8.4-25.7); Bilirubin, Total 1.3 mg/dL (0.2-1.2); Calc. Creatinine Clearance 0 mL/min (70-130); Calcium 10.9 mg/dL (7.8-10.44); Carbon Dioxide 25 mmol/L (23-31); Chloride 103 mmol/L (98-107); Estimated GFR-MDRD 57; Globulin 3.6 g/dL (2.4-3.5); Glucose 129 mg/dL (80-115); Potassium 3.7 mmol/L (3.5-5.1); Protein, Total 7.9 g/dL (5.8-8.1); Sodium 140 mmol/L (136-145)
[2017-05-12 15:50] LABS: CKMB 1.5 ng/mL (0-6.6); Troponin I Less than 0.010 ng/mL (< 0.028)
[2017-05-12] MEDS ORDERED: Ondansetron ODT 4 MG TAB ONE (16:29)
[2017-05-12] MEDS ORDERED: Aspirin 325 MG TAB ONE (16:29)
--- NOTE | 2017-05-12 16:37 | RAD ---
TWO VIEWS CHEST 05/12/17 PROVIDED CLINICAL HISTORY: Chest pain. FINDINGS: Comparison 03/10/10. Cardiac and mediastinal silhouette is within normal limits. Lungs appear clear. No pleural fluid or p neumothorax apparent. Median sternotomy changes are again noted. IMPRESSION: No evidence for an acute cardiopulmonary process. POS: [facility]
== END 2017-05-12 17:31 | disposition home or self-care (01) ==
LOC: MADERS 14:43
DX: R07.9 Chest pain, unspecified (principal); G47.33 Obstructive sleep apnea (adult) (pediatric); K21.9 Gastro-esophageal reflux disease without esophagitis; G43.909 Migraine, unspecified, not intractable, without status migrainosus; J45.909 Unspecified asthma, uncomplicated; F41.9 Anxiety disorder, unspecified; F32.9 Major depressive disorder, single episode, unspecified; F17.210 Nicotine dependence, cigarettes, uncomplicated; G89.29 Other chronic pain; M54.5 Low back pain; I12.9 Hypertensive chronic kidney disease with stage 1 through stage 4 chronic kidney disease, or unspecified chronic kidney disease; N18.9 Chronic kidney disease, unspecified; Z79.899 Other long term (current) drug therapy; Z86.711 Personal history of pulmonary embolism; Z79.82 Long term (current) use of aspirin
CPT/HCPCS: 36415; 71046; 80053; 82553; 84484; 85025; 85730; 93005; Q0162

== ENCOUNTER 2017-07-30 15:18 | Emergency (ER) | payer MEDICARE, OTHER ==
[2017-07-30] MEDS ORDERED: Azithromycin 250 MG TAB ONE (16:58)
== END 2017-07-30 17:33 | disposition home or self-care (01) ==
LOC: MADERS 15:18
DX: J06.9 Acute upper respiratory infection, unspecified (principal); R11.0 Nausea; I25.10 Atherosclerotic heart disease of native coronary artery without angina pectoris; K21.9 Gastro-esophageal reflux disease without esophagitis; G43.909 Migraine, unspecified, not intractable, without status migrainosus; I10 Essential (primary) hypertension; J44.9 Chronic obstructive pulmonary disease, unspecified; G47.33 Obstructive sleep apnea (adult) (pediatric); F41.9 Anxiety disorder, unspecified; F32.9 Major depressive disorder, single episode, unspecified; F17.210 Nicotine dependence, cigarettes, uncomplicated; Z86.73 Personal history of transient ischemic attack (TIA), and cerebral infarction without residual deficits; Z79.82 Long term (current) use of aspirin; Z79.899 Other long term (current) drug therapy; Z79.02 Long term (current) use of antithrombotics/antiplatelets
CPT/HCPCS: 96372; J1040

== ENCOUNTER 2017-07-31 13:44 | Emergency (ER) | payer MEDICARE ==
[2017-07-31] MEDS ORDERED: Sodium Chloride 0.9% 100 ML BAG ONE (14:30)
[2017-07-31] MEDS ORDERED: Sodium Chloride 0.9% 1,000 ML BAG ONE (14:30)
[2017-07-31] MEDS ORDERED: Ondansetron HCl/PF 4 MG/2 ML Vial ONE (14:34)
[2017-07-31 14:56] LABS: Bilirubin Small (Negative); Blood, Urine Small (Negative); Glucose, Urine (Dipstick) Negative (Negative); Leukocyte Small (Negative); Nitrite Negative (Negative); Protein, Urine (Dipstick) 100 mg/dL (Neg-Trace); Urobilinogen > or = 8.0 mg/dL (0.2-1.0); pH, Urine 8.5 (5.0-9.0)
[2017-07-31 14:58] LABS: Clarity Cloudy (Clear)
[2017-07-31 15:06] LABS: ALT (SGPT) 18 U/L (8-55); AST (SGOT) 17 U/L (5-34); Albumin 4.4 g/dL (3.4-4.8); Alkaline Phosphatase 144 U/L (40-150); Anion Gap 19 mmol/L (10-20); BUN (Urea Nitrogen) 12 mg/dL (8.4-25.7); Bilirubin, Total 2.1 mg/dL (0.2-1.2); Calc. Creatinine Clearance 0 mL/min (70-130); Calcium 10.4 mg/dL (7.8-10.44); Carbon Dioxide 15 mmol/L (23-31); Chloride 107 mmol/L (98-107); Estimated GFR-MDRD 90; Globulin 3.3 g/dL (2.4-3.5); Glucose 91 mg/dL (80-115); Potassium 3.5 mmol/L (3.5-5.1); Protein, Total 7.7 g/dL (5.8-8.1); Sodium 137 mmol/L (136-145)
[2017-07-31 15:07] LABS: Bacteria/HPF 1+ HPF (None Seen); WBC/HPF 21-50 HPF (0-3)
[2017-07-31 15:08] LABS: Crystals/HPF 2+ AMORPH PHOS HPF (Negative)
[2017-07-31 15:13] LABS: Band 5 % (5-11); Lymphocytes 5 % (21-51); MDiff Complete? YES; Mean Corpuscular HGB CONC 34.5 g/dL (32.0-36.0); Mean Corpuscular Hemoglobin 29.2 pg (27.0-31.0); Mean Corpuscular Volume 84.6 fl (80.0-94.0); Mean Platelet Volume 7.4 fL (7.4-10.4); Metamyelocyte 1 % (0-0); Monocytes 1 % (0-10); Neutrophil 88 % (42-75); PLT Morphology Comment Appears Adequate; Platelet Count 223 thou/uL (130-400); RBC Distribution Width 12.7 % (11.5-14.5); RBC Morphology Normal; Red Blood Cell (RBC) Count 5.83 mill/uL (4.70-6.10); White Blood Cell (WBC) Count 16.5 thou/uL (4.8-10.8)
[2017-07-31] MEDS ORDERED: Ketorolac Tromethamine 30 MG/ML VIAL ONE (15:36)
[2017-07-31 15:46] LABS: Bilirubin Negative (Negative); Blood, Urine Trace (Negative); Clarity Clear (Clear); Glucose, Urine (Dipstick) Negative (Negative); Leukocyte Small (Negative); Nitrite Negative (Negative); Protein, Urine (Dipstick) 30 mg/dL (Neg-Trace); pH, Urine 7.5 (5.0-9.0)
[2017-07-31 15:54] LABS: Bacteria/HPF Rare-Few HPF (None Seen)
[2017-07-31] MEDS ORDERED: Metoclopramide HCl 10 MG/2 ML VIAL ONE (16:44)
[2017-07-31] MEDS ORDERED: diphenhydrAMINE 50 MG/ML VIAL ONE (16:44)
[2017-07-31] MEDS ORDERED: Levofloxacin 500 mg/D5W 100 ml Premix Bag ONE (16:44)
== END 2017-07-31 17:49 | disposition short-term general hospital (02) ==
LOC: MADERS 13:44
DX: N39.0 Urinary tract infection, site not specified (principal); R11.2 Nausea with vomiting, unspecified; J44.9 Chronic obstructive pulmonary disease, unspecified; G47.33 Obstructive sleep apnea (adult) (pediatric); I25.10 Atherosclerotic heart disease of native coronary artery without angina pectoris; K21.9 Gastro-esophageal reflux disease without esophagitis; G43.909 Migraine, unspecified, not intractable, without status migrainosus; I10 Essential (primary) hypertension; F32.9 Major depressive disorder, single episode, unspecified; F41.9 Anxiety disorder, unspecified; F17.210 Nicotine dependence, cigarettes, uncomplicated; Z86.73 Personal history of transient ischemic attack (TIA), and cerebral infarction without residual deficits
CPT/HCPCS: 36415; 51701; 80053; 81003; 81015; 83690; 83735; 85025; 96361; 96365; 96367; 96375; J1200; J1885; J1956; J2405; J2765; J7050

== ENCOUNTER 2017-08-03 18:03 | Inpatient (IN) | payer MEDICARE ==
[2017-08-03 18:59] VITALS: BMI 29.7
[2017-08-03] MEDS ORDERED: Nitroglycerin 0.4 MG TAB (25 Tab Bottle) SL PRN (19:44)
[2017-08-03] MEDS ORDERED: Ventolin HFA Inhaler 60 PUFF INHALER INH PRN (19:44)
[2017-08-03] MEDS ORDERED: Docusate 100 MG CAP PO PRN (19:44)
[2017-08-03] MEDS ORDERED: Polyethylene Glycol 3350 17 GM Packet PO PRN (19:53)
[2017-08-03] MEDS: Pregabalin 100 MG CAP PO SCH (20:59)
[2017-08-03] MEDS ORDERED: Non-Formulary Item 1 EACH (Ipratropium-Albuterol [Combivent] 1 PUFF) INH SCH (21:00)
[2017-08-03] MEDS: Furosemide 40 MG TAB PO SCH (21:00)
[2017-08-03] MEDS ORDERED: Doxycycline 100 MG CAP ONE (21:09)
[2017-08-03] MEDS: Doxycycline Hyclate 100 MG TAB PO SCH (21:12)
[2017-08-03] MEDS: Ibuprofen 400 MG TAB PO PRN (21:12)
[2017-08-03] MEDS: traMADol HCl 50 MG TAB PO PRN (23:33)
[2017-08-04] MEDS: Ibuprofen 400 MG TAB PO PRN (03:12)
--- NOTE | 2017-08-04 03:20 | HP ---
DATE OF ADMISSION: 08/03/2017 Admitted to [facility] to extended care on 08/03/2017. CHIEF COMPLAINT: Weakness and urinary tract infection. 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 The patient had been hospitalized at [facility] from 07/31/2017 until 08/03/2017. The patient initially had presented to the emergency room on 0 07/30/2017 just feeling bad, running some fever, and had a lot of head and pulmonary congestion. He w as evaluated and thought to have respiratory infection, was given antibiotics, and sent home. The sienna delgado said by the next day, he was feeling worse. He was extremely weak, could not get up and around , was running fever, and having pain in the right lower quadrant, and was just profoundly weak. He w as taken to the emergency room and found to have urinary tract infection. He underwent a CT scan of the abdomen and pelvis without contrast that showed findings suspicious of cystitis. The kidneys wer e symmetric in size without evidence of perinephric stranding. No overt evidence of a pyelonephritis . He did show evidence of colonic diverticulosis. He had evidence of Morgagni hernia. He has had p revious cholecystectomy and he has an IVC filter. The patient was admitted in the hospital there, wa s hydrated, started on IV antibiotics initially with Zosyn, and was cautiously hydrated. His urine c ulture grew Staph aureus, methicillin resistant, but was sensitive to doxycycline, Septra, and vancom ycin. He was switched to doxycycline 100 mg b.i.d. to be taken for 15 days. He has a history of all ergies to VANCOMYCIN and SULFA DRUGS. During the hospitalization, he complained of lot of headaches that were more severe than usual. He has a history of migraine headaches and he was treated periodic ally with Toradol 15 mg IV and later 30 mg IM that seemed to help. The CT scan of the brain was perf ormed and showed no acute intracranial abnormality. The patient's condition improved. He had a lot of pain in the right lower quadrant that he has had in the past, and I thought this may be from his u rinary tract infection. The patient had his chronic indwelling Romero catheter changed out on 018, and the catheter has been working fine. The patient was left extremely weak and he had requeste d transfer when he was stable to [facility] to [facility] for physical therapy. The patient was seen soon after his arrival at [facility] on 08/03/2017. He was able to give m e a good history of what had happened, about how he started off respiratory symptoms that got worse a nd then resulted in his admission. He said he does have his urinary tract infection and he has had t he severe headache. He still is having some headaches. He has not been given his routine home medic ation in hopes that this would help some. PAST MEDICAL HISTORY: Hospitalized at [facility] from 07/31/2017 to 08/03/2017 for urinary tract infection. The patient has hypertension, coronary artery disease for which he has undergone a coronary artery bypass years ago and also has had stents; presently asymptomatic. The patient has ga stroesophageal reflux disease and hiatal hernia. He has had colon polyps. He has undergone colonosc opy and found to have diverticulosis. Colonoscopy last in 2010. The patient has had a pulmonary emb olism and was treated with IV filtration device in 2013. He has had no recurrence. The patient has BPH. He has a long history of urinary retention for over 20 years. Initially, he was treated with i ntermittent catheterizations and later required placement of a catheter. He has failed multiple atte mpts with removal of the catheter. The patient opted not to have a suprapubic catheter. The patient said he has obstructive sleep apnea, but does not use CPAP since he is intolerant to this. 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 He has bee n tried on a nerve stimulator without success and this was removed in 10/2014; presently under the ca re of a pain management doctor that manages him with Tegretol, Lyrica, and tramadol extended release and also plain tramadol, which works pretty well. He has a history of anxiety disorder; history of d epression, which has been treated and resolved. He goes to [facility] in [place], which has worked excellent for him. PAST SURGICAL HISTORY: He has undergone cholecystectomy; tonsillectomy; adenoidectomy; laminectomies of the lumbar spine; spinal stimulator device placed in and later removed in 2014; sinus surge ry; cervical disk surgery; appendectomy; TURP; removal of testicular cyst; right knee surgery; bilate ral mastoidectomy; bilateral inguinal hernia repair; EGD that was normal in 03/2010; temporary trial of a bladder stimulator, did not work and was removed later; rotator cuff repair of the right shoulde r in 2016. PRESENT MEDICATIONS: Doxycycline 100 mg b.i.d. started on 08/03/2017 and should be taken for 15 days , tramadol ER 200 mg 1 daily, Tegretol 200 mg b.i.d., Lyrica 300 mg b.i.d., docusate calcium 240 mg d aily, Myrbetriq 50 mg daily, furosemide 40 mg b.i.d., DuoNeb 4 times a day and every 4 hours as neede d, albuterol inhaler 2 puffs every 4 hours as needed, Combivent inhaler, Respimat 1 inhalation 4 time s a day, Nitrostat 0.4 mg sublingual p.r.n. chest pain, tramadol 50 mg every 6 hours as needed for pa in, aspirin 81 mg daily, Plavix 75 mg daily, promethazine 25 mg every 12 hours as needed, pantoprazol e 40 mg daily. ALLERGIES: METHADONE, FLOMAX, KEFLEX, SULFA DRUGS, LEVAQUIN, PROPOFOL, HALOPERIDOL, TRAZODONE, [place], ZOCOR, THORAZINE causes agitation, SEROQUEL causes agitation. REVIEW OF SYSTEMS: The patient said he has not had any recent weight gain or loss. He does not thin k he has had fever over the last few days. Head and Neck: The patient said he has had a lot of head aches lately. Thinks may be a recurrence of the migraine. The congestion in his nose is better. Vi jean-claude: No change other than he uses glasses. Hearing: His hearing is poor and he has hearing aids. Pulmonary: The patient said he has been using neb treatments regularly and this helps with his lynne thing. Cardiovascular: No chest pain. Gastrointestinal: No nausea or vomiting. The patient said he has been very constipated. The patient has been having some pain in the right lower quadrant. Ge nitourinary: The patient has an indwelling Romero catheter that he has had for years for urinary rete ntion and refused to have a suprapubic. ADLs: Ordinarily, the patient is independent of his ADLs an d instrumental ADLs. Since his hospitalization, he has been left very weak and having a hard time ge tting around, taking care of himself. HABITS: Alcohol, none. Tobacco, 1 pack a day. SOCIAL HISTORY: The patient is not . The patient lives with his brother. The patient attend s [employer], which has helped him with his anxiety and depression. PHYSICAL EXAMINATION: GENERAL: Shows a pleasant 62-year-old white male who was sitting up in bed. He is alert. He appear s in no acute distress. VITAL SIGNS: Pulse 83, respirations 18, O2 sat 96%, blood pressure 166/89, weight 211. HEAD: Normocephalic. EYES: Pupils are equal, round, and reactive. EARS: TMs are clear. NOSE: Normal. MOUTH AND THROAT: Normal. NECK: Carotids are equal and strong. No bruits. LUNGS: The patient has good breath sounds. There is some mild wheeze on expiration over the left ch est. HEART: Regular rate. No murmurs. He has a well-healed substernal scar. ABDOMEN: There are multiple scars over his abdomen, down the midline and both inguinal areas. The p atient's abdomen is not distended. Abdomen is soft. There is no organomegaly. There is no guarding or rebound tenderness. The patient is a little tender in the right lower quadrant. GENITOURINARY: The patient is a circumcised male, both testes descended. He has an indwelling Romero catheter. Urine is clear. EXTREMITIES: His lower extremities have no edema. NEUROLOGIC: The patient is alert, oriented x3 with no focal weakness. IMPRESSION: 1. Generalized weakness and deconditioning. A. Secondary to acute illness requiring hospitalization at [facility]. 2. Hospitalized at [facility] from 07/31/2017 to 08/03/2017 for urinary tract infection. 3. Urinary tract infection. A. Urine culture collected on 07/31/2017 grew methicillin-resistant Staph aureus and sensitive to do xycycline, sulfa, and vancomycin. B. On doxycycline 100 mg b.i.d. started on 08/03/2017 and to be taken for 15 days. Allergic to SULF A DRUGS and VANCOMYCIN. 4. Right lower quadrant pain. A. Etiology, suspect related to urinary tract infection. B. Also, could be possibly secondary to previous adhesions. The patient had multiple operations. R ecent CT scan showed no acute intra-abdominal problem. 5. Coronary artery disease. A. Status post coronary artery bypass years ago. B. Status post stents. C. Presently asymptomatic. 6. Chronic obstructive pulmonary disease. 7. Hypertension. 8. History of transient ischemic attack manifested with mild right-sided paresthesia in 06/2015. No recurrence. 9. Anxiety disorder, controlled. 10. History of depression. A. Presently off medication and resolved. B. Continues to be seen at [facility]. 11. Constipation. 12. Chronic pain. A. Secondary to a failed surgical back syndrome. B. Managed with tramadol ER and regular tramadol, Tegretol, and Lyrica. 13. Cigarette abuse. 14. Peripheral neuropathy of the lower extremities. 15. Headaches, history of migraine headaches. PLAN: The patient had been admitted to [facility] primarily for his deconditioning and weaknes s. He is also having some pain in the right lower quadrant that feel like this is probably from the recent UTI and/or abdominal adhesions from the multiple surgeries. CT showed no evidence of any acut e intra-abdominal problem. The patient also has been having headaches that may be from the exacerbat ion of migraine and recent acute illness. PT and OT will work with him to try to improve his general weakness and conditioning. We will continue him on his routine medication.
[2017-08-04 05:30] LABS: #Basophils 0.2 thou/uL (0.0-0.2); #Eosinphils 0.3 thou/uL (0.0-0.7); #Lymphocytes 2.3 thou/uL (1.20-3.40); #Monocytes 0.6 thou/uL (0.11-0.59); #Neutrophils 3.3 thou/uL (1.40-6.50); %Basophils 2.6 % (0.0-1.0); %Eosinophils 4.8 % (0.0-10.0); %Lymphocytes 34.3 % (21.0-51.0); %Neutrophils 49.3 % (42.0-75.0); Hemoglobin 15.8 g/dL (14.0-18.0); Mean Corpuscular HGB CONC 34.1 g/dL (32.0-36.0); Mean Platelet Volume 6.9 fL (7.4-10.4); Platelet Count 194 thou/uL (130-400); RBC Distribution Width 13.6 % (11.5-14.5); Red Blood Cell (RBC) Count 5.25 mill/uL (4.70-6.10); White Blood Cell (WBC) Count 6.7 thou/uL (4.8-10.8)
[2017-08-04 06:41] LABS: ALT (SGPT) 16 U/L (8-55); AST (SGOT) 17 U/L (5-34); Albumin 3.9 g/dL (3.4-4.8); Alkaline Phosphatase 123 U/L (40-150); Anion Gap 16 mmol/L (10-20); BUN (Urea Nitrogen) 12 mg/dL (8.4-25.7); Bilirubin, Total 0.5 mg/dL (0.2-1.2); Calc. Creatinine Clearance 93 mL/min (70-130); Calcium 10.3 mg/dL (7.8-10.44); Carbon Dioxide 21 mmol/L (23-31); Chloride 109 mmol/L (98-107); Estimated GFR-MDRD 67; Globulin 2.8 g/dL (2.4-3.5); Glucose 97 mg/dL (80-115); Potassium 3.9 mmol/L (3.5-5.1); Protein, Total 6.7 g/dL (5.8-8.1); Sodium 142 mmol/L (136-145)
[2017-08-04] MEDS ORDERED: Ketorolac Tromethamine 60 MG/2 ML VIAL IM PRN (08:07)
[2017-08-04] MEDS: Clopidogrel Bisulfate 75 MG TAB PO SCH (08:47)
[2017-08-04] MEDS: carBAMazepine 200 MG TAB PO SCH ×2 (08:47→16:56)
[2017-08-04] MEDS: Aspirin 81 mg Enteric Coated Tablet PO SCH (08:47)
[2017-08-04] MEDS: Furosemide 40 MG TAB PO SCH ×2 (08:48→20:03)
[2017-08-04] MEDS: Doxycycline Hyclate 100 MG TAB PO SCH (08:48)
[2017-08-04] MEDS: Oxybutynin ER 5 MG TAB PO SCH (08:49)
[2017-08-04] MEDS: Pregabalin 100 MG CAP PO SCH ×2 (08:50→20:04)
[2017-08-04] MEDS: Tramadol Hcl [Tramadol Hcl Er] 200 MG PO SCH (09:03)
[2017-08-04] MEDS: traMADol HCl 50 MG TAB PO PRN (09:03)
--- NOTE | 2017-08-04 11:47 | PRG ---
DATE OF SERVICE: 08/04/2017 SUBJECTIVE: He did not have a good night. He said he is just hurting in the right lower abdomen and also head is just still hurting. He said the medicine has not relieved him. He is just getting suleiman k on his routine medications and he said the Toradol had not helped at [place] they were giving hi m Toradol injections that was helping him. He would like to try these again to see if this would hel p the headaches. He has had no nausea, vomiting, change in his bowel habits. This morning his urine has been real clear. The patient was up at night and had walked outside to smoke. OBJECTIVE: GENERAL: The patient lying in bed. He is alert, oriented x3, appears in no acute distress. VITAL SIGNS: His temp 98.5, pulse 70, respirations 22, O2 sat 97% on room air, blood pressure 159/93 . LUNGS: His lungs are clear. HEART: Regular rate. ABDOMEN: Soft, nontender. There is no guarding or rebound tenderness. ASSESSMENT: 1. Generalized weakness and deconditioning. A. Secondary to acute illness requiring hospitalization at [facility]. B. Improved, ambulating better without assistance as of 08/04/2017. 2. Hospitalized at [facility] from 07/31/2017 to 08/03/2017 for urinary tract infection. 3. Urinary tract infection. A. Urine culture collected on 07/31/2017 grew methicillin-resistant Staph aureus and sensitive to do xycycline, sulfa, and vancomycin. B. On doxycycline 100 mg b.i.d. started on 08/03/2017 and to be taken for 15 days. Allergic to SULF A DRUGS and VANCOMYCIN. 4. Right lower quadrant pain. A. Etiology of this pain in the right lower quadrant has been intermittent through the years. Suspe ct this is secondary to previous adhesions from the multiple operations. Recent CT scan showed no ac nikolski intra-abdominal problem. The urinary tract infection may be contributing. B. A little improved as of 08/04/2017. 5. Coronary artery disease. A. Status post coronary artery bypass years ago. B. Status post stents. C. Presently asymptomatic. 6. Chronic obstructive pulmonary disease. 7. Hypertension. 8. History of transient ischemic attack manifested with mild right-sided paresthesia in 06/2015. No recurrence. 9. Anxiety disorder, controlled. 10. History of depression. A. Presently off medication and resolved. B. Continues to be seen at [facility]. 11. Constipation. 12. Chronic pain. A. Secondary to a failed surgical back syndrome. B. Managed with tramadol ER and regular tramadol, Tegretol, and Lyrica. 13. Cigarette abuse. 14. Peripheral neuropathy of the lower extremities. 15. Headaches, history of migraine headaches. A. Persists as of 08/04/2017. PLAN: The patient is back on his routine chronic pain management, feel like this will help. Explain ed to the patient that his pain is probably all in the right lower quadrant is all from his multiple operations with adhesions and maybe some aggravation recently from the urinary tract infection, and c ystitis. Anticipate this will gradually improve, but with the adhesions he may have intermittent epi sodes in the future. For a couple of days we will order the Toradol 30 mg IM every 8 hours as a fall back for the headaches to use on a p.r.n. basis. The patient did say per Code status that he wanted everything attempted, but it looked like he could recover from then he could be backed off. We will leave him as a FULL CODE.
[2017-08-04] MEDS ORDERED: Ketorolac Tromethamine 30 MG/ML VIAL ONE (12:17)
[2017-08-04] MEDS: Doxycycline 100 MG CAP PO SCH (20:06)
[2017-08-04] MEDS: Ketorolac Tromethamine 30 MG/ML VIAL IM PRN (20:28)
[2017-08-04] MEDS ORDERED: Doxycycline Hyclate 100 MG TAB PO SCH (21:00)
[2017-08-05] MEDS: traMADol HCl 50 MG TAB PO PRN ×2 (00:09→11:52)
[2017-08-05] MEDS: Acetaminophen 325 MG TAB PO PRN (05:46)
[2017-08-05] MEDS: Ketorolac Tromethamine 30 MG/ML VIAL IM PRN ×2 (07:14→20:12)
[2017-08-05] MEDS: carBAMazepine 200 MG TAB PO SCH ×2 (08:12→18:15)
[2017-08-05] MEDS: Furosemide 40 MG TAB PO SCH ×2 (08:13→20:10)
[2017-08-05] MEDS: Doxycycline 100 MG CAP PO SCH ×2 (08:13→20:10)
[2017-08-05] MEDS: Aspirin 81 mg Enteric Coated Tablet PO SCH (08:13)
[2017-08-05] MEDS: Clopidogrel Bisulfate 75 MG TAB PO SCH (08:13)
[2017-08-05] MEDS: Pregabalin 100 MG CAP PO SCH ×2 (08:14→20:11)
[2017-08-05] MEDS: Oxybutynin ER 5 MG TAB PO SCH (08:14)
[2017-08-05] MEDS: Tramadol Hcl [Tramadol Hcl Er] 200 MG PO SCH (08:40)
[2017-08-05] MEDS: Promethazine 25 MG TAB PO PRN (14:15)
[2017-08-05] MEDS: Ibuprofen 400 MG TAB PO PRN (14:16)
[2017-08-06] MEDS: Promethazine 25 MG TAB PO PRN (03:29)
[2017-08-06] MEDS: traMADol HCl 50 MG TAB PO PRN ×3 (03:29→21:15)
[2017-08-06] MEDS: Furosemide 40 MG TAB PO SCH ×2 (08:42→21:14)
[2017-08-06] MEDS: Pregabalin 100 MG CAP PO SCH ×2 (08:43→21:14)
[2017-08-06] MEDS: carBAMazepine 200 MG TAB PO SCH ×2 (08:44→17:13)
[2017-08-06] MEDS: Doxycycline 100 MG CAP PO SCH ×2 (08:44→21:14)
[2017-08-06] MEDS: Clopidogrel Bisulfate 75 MG TAB PO SCH (08:44)
[2017-08-06] MEDS: Aspirin 81 mg Enteric Coated Tablet PO SCH (08:44)
[2017-08-06] MEDS: Oxybutynin ER 5 MG TAB PO SCH (08:51)
[2017-08-06] MEDS: Tramadol Hcl [Tramadol Hcl Er] 200 MG PO SCH (09:48)
[2017-08-06] MEDS: Ketorolac Tromethamine 30 MG/ML VIAL IM PRN (23:42)
[2017-08-07] MEDS: traMADol HCl 50 MG TAB PO PRN ×3 (06:19→20:17)
[2017-08-07] MEDS: Doxycycline 100 MG CAP PO SCH ×2 (08:37→20:15)
[2017-08-07] MEDS: Furosemide 40 MG TAB PO SCH ×2 (08:37→20:16)
[2017-08-07] MEDS: Clopidogrel Bisulfate 75 MG TAB PO SCH (08:37)
[2017-08-07] MEDS: Oxybutynin ER 5 MG TAB PO SCH (08:37)
[2017-08-07] MEDS: carBAMazepine 200 MG TAB PO SCH ×2 (08:37→17:04)
[2017-08-07] MEDS: Pregabalin 100 MG CAP PO SCH ×2 (08:38→20:16)
[2017-08-07] MEDS: Aspirin 81 mg Enteric Coated Tablet PO SCH (08:38)
[2017-08-07] MEDS: Tramadol Hcl [Tramadol Hcl Er] 200 MG PO SCH (08:40)
--- NOTE | 2017-08-07 13:44 | PRG ---
DATE OF SERVICE: 08/05/2017 SUBJECTIVE: The patient said he is doing better. He is walking a little better. He says he is stil l having the headaches, but they are not as severe. He has had to take since he has been here a tota l of 3 of the Toradol. He had one early this morning, but the headaches are much less and he can tel l that are beginning to fade. The pain in the right lower quadrant also was much better. Sometimes, he is entirely free of pain. Other times, just a mild discomfort . He said no vomiting, no change in bowel habits. OBJECTIVE: GENERAL: The patient looks much better today. He appears in no distress. VITAL SIGNS: His temperature is 97.4, pulse 60, respirations 18, O2 sat 99% on room air, blood press ure 125/66. LUNGS: Have some expiratory wheeze, which are chronic, but there are good breath sounds. HEART: Regular rate. EXTREMITIES: No edema. ABDOMEN: Nontender. ASSESSMENT: 1. Generalized weakness and deconditioning. A. Secondary to acute illness requiring hospitalization at [facility]. B. Improved. This morning, he ambulate with the use of a walker as of 08/05/2017. 2. Hospitalized at [facility] from 07/31/2017 to 08/03/2017 for urinary tract infection. 3. Urinary tract infection. A. Urine culture collected on 07/31/2017 grew methicillin-resistant Staph aureus and sensitive to do xycycline, sulfa, and vancomycin. B. On doxycycline 100 mg b.i.d. started on 08/03/2017 and to be taken for 15 days. Allergic to SULF A DRUGS and VANCOMYCIN. C. No dysuria. The right lower quadrant abdominal pain is resolving and he remains afebrile as of 0 08/05/2017. 4. Right lower quadrant pain. A. Etiology of this pain in the right lower quadrant has been intermittent through the years. Suspe ct this is secondary to previous adhesions from the multiple operations. Recent CT scan showed no ac [place] intra-abdominal problem. The urinary tract infection may be contributing. B. Continued improvement with pain, only intermittent and very mild as of 08/05/2017. 5. Coronary artery disease. A. Status post coronary artery bypass years ago. B. Status post stents. C. Presently asymptomatic. 6. Chronic obstructive pulmonary disease. 7. Hypertension. 8. History of transient ischemic attack manifested with mild right-sided paresthesia in 06/2015. No recurrence. 9. Anxiety disorder, controlled. 10. History of depression. A. Presently off medication and resolved. B. Continues to be seen at [facility]. 11. Constipation. 12. Chronic pain. A. Secondary to a failed surgical back syndrome. B. Managed with tramadol ER and regular tramadol, Tegretol, and Lyrica. 13. Cigarette abuse. 14. Peripheral neuropathy of the lower extremities. 15. Headaches, history of migraine headaches. A. Improved as of 08/05/2017. PLAN: Overall, the patient looks better. The abdominal pain felt to be secondary to abdominal adhes ions from all his previous surgeries aggravated possibly by the urinary tract infection with cystitis is improving and is now just intermittent and mild, anticipate this resolving. His headaches are al so improving. the Toradol reduces interval do no more often than ever 12 hours and asked him t o try to get by with tramadol alone. He takes tramadol ER 200 mg daily at home. This is not on the hospital formulary as brother is supposed to bring this from home for him. Continue physical therapy .
[2017-08-07] MEDS: Ketorolac Tromethamine 30 MG/ML VIAL IM PRN (17:39)
[2017-08-07] MEDS: Acetaminophen 325 MG TAB PO PRN (20:17)
[2017-08-08] MEDS: Promethazine 25 MG TAB PO PRN (03:30)
[2017-08-08] MEDS: Acetaminophen 325 MG TAB PO PRN (03:30)
[2017-08-08] MEDS: traMADol HCl 50 MG TAB PO PRN ×2 (03:31→13:27)
[2017-08-08 06:49] VITALS: BP 142/64; TEMP 97.6
[2017-08-08] MEDS: Ketorolac Tromethamine 30 MG/ML VIAL IM PRN (09:02)
[2017-08-08] MEDS: Tramadol Hcl [Tramadol Hcl Er] 200 MG PO SCH (09:03)
[2017-08-08] MEDS: Doxycycline 100 MG CAP PO SCH (09:04)
[2017-08-08] MEDS: Furosemide 40 MG TAB PO SCH (09:04)
[2017-08-08] MEDS: Clopidogrel Bisulfate 75 MG TAB PO SCH (09:04)
[2017-08-08] MEDS: carBAMazepine 200 MG TAB PO SCH (09:04)
[2017-08-08] MEDS: Oxybutynin ER 5 MG TAB PO SCH (09:04)
[2017-08-08] MEDS: Aspirin 81 mg Enteric Coated Tablet PO SCH (09:04)
[2017-08-08] MEDS: Pregabalin 100 MG CAP PO SCH (09:05)
[2017-08-08] MEDS ORDERED: Ibuprofen 400 MG TAB PO PRN (10:45)
--- NOTE | 2017-08-08 15:37 | PRG ---
DATE OF SERVICE: 08/09/2017 SUBJECTIVE: The patient said that he is having a lot of bladder spasms and at home he uses the Myrbe triq and here that substituted the oxybutynin. He said this did not work as well. His brother is anam petit to be bringing his medicine from home and then he can take this. He did not complain of the headac hes this morning nor the abdominal pain. OBJECTIVE: GENERAL: Patient is in no acute distress. VITAL SIGNS: Shows temperature 97.6, pulse 77, respirations 20, O2 saturation 97% on room air, and b lood pressure 142/64. LUNGS: Have expiratory wheezes which are chronic. CARDIAC: Regular rate. EXTREMITIES: No edema. ASSESSMENT: 1. Generalized weakness and deconditioning. A. Secondary to acute illness requiring hospitalization at [facility]. B. Improved. Ambulating further, transferring unassisted. 2. Hospitalized at [facility] from 07/31/2017 to 08/03/2017 for urinary tract infection. 3. Urinary tract infection. A. Urine culture collected on 07/31/2017 grew methicillin-resistant Staph aureus and sensitive to do xycycline, sulfa, and vancomycin. B. On doxycycline 100 mg b.i.d. started on 08/03/2017 and to be taken for 15 days. Allergic to SULF A DRUGS and VANCOMYCIN. C. No dysuria. The right lower quadrant abdominal pain is resolving and he remains afebrile as of 0 08/05/2017. D. Chronic bladder spasms for which he is on Myrbetriq at home. 4. Right lower quadrant pain. A. Etiology of this pain in the right lower quadrant has been intermittent through the years. Suspe ct this is secondary to previous adhesions from the multiple operations. Recent CT scan showed no ac [place] intra-abdominal problem. The urinary tract infection may be contributing. B. Continued improvement with pain, only intermittent and very mild as of 08/08/2017. 5. Coronary artery disease. A. Status post coronary artery bypass years ago. B. Status post stents. C. Presently asymptomatic. 6. Chronic obstructive pulmonary disease. 7. Hypertension. 8. History of transient ischemic attack manifested with mild right-sided paresthesia in 06/2015. No recurrence. 9. Anxiety disorder, controlled. 10. History of depression. A. Presently off medication and resolved. B. Continues to be seen at [facility]. 11. Constipation. 12. Chronic pain. A. Secondary to a failed surgical back syndrome. B. Managed with tramadol ER and regular tramadol, Tegretol, and Lyrica. 13. Cigarette abuse. 14. Peripheral neuropathy of the lower extremities. 15. Headaches, history of migraine headaches. A. Improved as of 08/08/2017. PLAN: We will stop the Toradol. Patient may bring his Myrbetriq from home and use instead of the ox ybutynin for bladder spasm. Continue physical therapy. Anticipated discharge little later this week .
--- NOTE | 2017-08-10 08:49 | DIS ---
Admitted to [facility] on 08/03/2017 and discharged on 08/08/2017. FINAL DIAGNOSES: 1. Generalized weakness and deconditioning. A. Secondary to acute illness requiring hospitalization at [facility]. B. Much improved. The patient ambulated independently and transferring independently as of 08/09/19 18. 2. Hospitalized at [facility] from 07/31/2017 to 08/03/2017 for urinary tract infection. 3. Urinary tract infection. A. Urine culture collected on 07/31/2017 grew methicillin-resistant Staph aureus and sensitive to do xycycline, sulfa, and vancomycin. B. On doxycycline 100 mg b.i.d. started on 08/03/2017 and to be taken for 15 days. Allergic to SULF A DRUGS and VANCOMYCIN. C. No dysuria. The right lower quadrant abdominal pain is resolving and he remains afebrile as of 0 08/08/2017. D. Chronic bladder spasms for which he is on Myrbetriq at home. 4. Right lower quadrant pain. A. Etiology of this pain in the right lower quadrant has been intermittent through the years. Suspe ct this is secondary to previous adhesions from the multiple operations. Recent CT scan showed no ac [place] intra-abdominal problem. The urinary tract infection may be contributing. B. Resolving as of 08/08/2017. 5. Coronary artery disease. A. Status post coronary artery bypass years ago. B. Status post stents. C. Presently asymptomatic. 6. Chronic obstructive pulmonary disease. 7. Hypertension. 8. History of transient ischemic attack manifested with mild right-sided paresthesia in 06/2015. No recurrence. 9. Anxiety disorder, controlled. 10. History of depression. A. Presently off medication and resolved. B. Continues to be seen at [facility]. 11. Constipation. 12. Chronic pain. A. Secondary to a failed surgical back syndrome. B. Managed with tramadol ER and regular tramadol, Tegretol, and Lyrica. 13. Cigarette abuse. 14. Peripheral neuropathy of the lower extremities. 15. Headaches, history of migraine headaches. A. Improved as of 08/08/2017. 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 The patient was hospitalized at [facility] from 07/31/2017 until 08/03/2017 initially presenting in the emergency room with not feeling well, running a fever, extreme headaches, and pulmonary congestion. He underwent thorough evaluation and w as found to have a urinary tract infection. CT scan of the abdomen and pelvis without contrast showe d findings suggestive of a cystitis. Kidneys were symmetric in size and shape. HOSPITAL COURSE: The patient was hospitalized at [facility], initially hydrated with IV flu ids and IV antibiotics using Zosyn. His culture grew a Staph aureus, methicillin resistant that was sensitive to doxycycline, Septra, and vancomycin. He was switched from Zosyn to doxycycline 100 mg b .i.d. and was recommended that this be taken for a 15-day course orally. He is allergic to VANCOMYCI N, SULFA DRUGS. The patient was left a week and wanted to be transferred to [facility] for phy sical therapy. Before he left, he had had a lot of headaches. He did undergo CT scan of the brain t hat showed no acute intracranial abnormality. During this hospitalization, he did complain a lot of right lower quadrant pain and during his hospitalization, received Toradol for pain. The patient was initially seen soon after his admission to [facility]. He complained of the he adaches and right lower quadrant pain. His examination showed lungs with expiratory wheezes, which a re chronic from his COPD. He had some mild tenderness in right lower quadrant. No guarding, rebound tenderness, or organomegaly. The patient had no fever. visited with patient and told him he wanted to get him back on his chronic pain management program, which included his tramadol, tramadol ER, Tegretol, and Lyrica. The patient is under the care of her pain management doctor in the [facility]. His meds were restarted. Did not have the tramadol ER on the formulary, but his brother was due to bring this nor did we have the Myrbetriq for his bladder spasms, which his brother would bring . He was given oxybutynin ER instead. [place] like that his abdominal pain was probably secondary to a dhesions since he had had multiple abdominal surgeries and inguinal surgeries and aggravated recently by the cystitis. During the hospitalization, this seemed to settle. His headaches were still prese nt and thought may be an exacerbation of his migraine. He was given Toradol 30 mg IM every 8 hours p .r.n. The patient's headaches gradually improved and the patient's overall strength improved. He wa s ambulating and walking in the halls on his own and going outside to continue smoking. His abdomen was soft and he had only mild intermittent pains in right lower quadrant, still intermittently had th e headaches. His lungs persisted with the wheezes, which are chronic. He was continued on the doxyc ycline. The patient decided on Tuesday morning, after I had seen him earlier that morning, that he wa s ready to go home. He was discharged and prescription called in for the doxycycline 100 mg b.i.d. f or an additional 10 days, which will complete the 15-day course. DISPOSITION: Diet: Regular diet. No added salt. Activities: The patient is ambulating and transf erring independently. May resume his usual activities. DISCHARGE MEDICATIONS: Doxycycline 100 mg b.i.d. for an additional 10 days, this was called in for h im and this will complete the 10-day course; tramadol ER 200 mg once daily, tramadol 50 mg one every 6 hours as needed for pain; Tegretol 200 mg b.i.d.; Lyrica 300 mg b.i.d.; docusate calcium 240 mg thomas ly; Myrbetriq 50 mg daily; furosemide 40 mg b.i.d.; DuoNeb nebulizer q.i.d. and every 4 hours as need ed; albuterol inhaler 2 puffs every 4 hours as needed; patient also uses a Combivent Respimat 1 inhal ation 4 times a day if needed; nitroglycerin 0.4 mg sublingual p.r.n. chest pain; aspirin 81 mg daily ; Plavix 75 mg daily; promethazine 25 mg every 12 hours as needed for nausea, pantoprazole 40 mg dodie y. FOLLOWUP: The patient should follow up with his pain management doctor. The patient also should fol low up with his urologist, who manages his urinary retention and catheter. The patient should follow up at [facility] for his history of anxiety and depression. The patient should be seen in [place] in 2 weeks. CODE STATUS: FULL CODE.
== END 2017-08-08 14:08 | disposition home health service (06) | DRG 948 ==
LOC: MADMS 18:03
PROVIDERS: ADMIT Family Medicine; ATTEND Family Medicine
DX: R53.1 Weakness (principal); N30.90 Cystitis, unspecified without hematuria; B95.62 Methicillin resistant Staphylococcus aureus infection as the cause of diseases classified elsewhere; N32.89 Other specified disorders of bladder; K66.0 Peritoneal adhesions (postprocedural) (postinfection); I25.10 Atherosclerotic heart disease of native coronary artery without angina pectoris; Z95.1 Presence of aortocoronary bypass graft; J44.9 Chronic obstructive pulmonary disease, unspecified; I10 Essential (primary) hypertension; Z86.73 Personal history of transient ischemic attack (TIA), and cerebral infarction without residual deficits; F41.9 Anxiety disorder, unspecified; K59.00 Constipation, unspecified; G89.29 Other chronic pain; F17.210 Nicotine dependence, cigarettes, uncomplicated; G62.9 Polyneuropathy, unspecified; G43.909 Migraine, unspecified, not intractable, without status migrainosus; M54.5 Low back pain
CPT/HCPCS: 80053; 85025; G8978-GP-CJ; G8979-GP-CI; G8984-GO-CJ; G8985-GO-CH; J1885; J7620

== ENCOUNTER 2018-03-20 13:46 | Outpatient (CLI) | payer MEDICARE ==
[2018-03-20 14:23] LABS: Anion Gap 16 mmol/L (10-20); BUN (Urea Nitrogen) 17 mg/dL (8.4-25.7); Calc. Creatinine Clearance 0 mL/min (70-130); Calcium 10.1 mg/dL (7.8-10.44); Carbon Dioxide 25 mmol/L (23-31); Chloride 103 mmol/L (98-107); Estimated GFR-MDRD 55; Glucose 146 mg/dL (80-115); Potassium 4.2 mmol/L (3.5-5.1); Sodium 140 mmol/L (136-145)
== END 2018-03-20 13:47 | disposition home or self-care (01) ==
LOC: MADLAB 13:46
PROVIDERS: ATTEND Internal Medicine
DX: I34.0 Nonrheumatic mitral (valve) insufficiency (principal)
CPT/HCPCS: 36415; 80048

== ENCOUNTER 2018-05-05 08:48 | Emergency (ER) | payer MEDICARE ==
--- NOTE | 2018-05-05 10:12 | RAD ---
TWO VIEWS RIGHT HIP: COMPARISON: 09/30/2015. HISTORY: Fall 3 days ago with right hip pain. FINDINGS: Two views of the right hip show no evidence of acute fracture or dislocation. No degenerative change s are seen. IMPRESSION: No significant abnormality. POS: [facility]
--- NOTE | 2018-05-05 10:14 | RAD ---
PELVIS 1 VIEW: HISTORY: Injury. COMPARISON: None. FINDINGS: Abnormal sclerosis of both femoral heads. Subcortical lucency of the lateral margin right femoral he ad and neck junction. Obturator rings are intact. 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 POS: [facility]
== END 2018-05-05 10:17 | disposition home or self-care (01) ==
LOC: MADERS 08:48
DX: M25.551 Pain in right hip (principal); G89.29 Other chronic pain; G47.33 Obstructive sleep apnea (adult) (pediatric); I25.10 Atherosclerotic heart disease of native coronary artery without angina pectoris; K21.9 Gastro-esophageal reflux disease without esophagitis; Z86.711 Personal history of pulmonary embolism; G43.909 Migraine, unspecified, not intractable, without status migrainosus; J44.9 Chronic obstructive pulmonary disease, unspecified; F41.9 Anxiety disorder, unspecified; F32.9 Major depressive disorder, single episode, unspecified; F17.210 Nicotine dependence, cigarettes, uncomplicated; Z79.899 Other long term (current) drug therapy; Z79.82 Long term (current) use of aspirin; Z79.51 Long term (current) use of inhaled steroids
CPT/HCPCS: 72170

== ENCOUNTER 2018-07-02 22:51 | Emergency (ER) | payer MEDICARE ==
[2018-07-02] MEDS ORDERED: Ondansetron ODT 4 MG TAB ONE (23:12)
[2018-07-02] MEDS ORDERED: Acetaminophen 500 MG TAB ONE (23:13)
[2018-07-02] MEDS ORDERED: Lidocaine Viscous Sol 2% 15 ml UD Cup ONE (23:13)
[2018-07-02] MEDS ORDERED: Mag-Al Plus 1200 MG/1200 MG/120 MG/30 ML UDCUP ONE (23:13)
== END 2018-07-02 23:34 | disposition home or self-care (01) ==
LOC: MADERS 22:51
DX: M25.551 Pain in right hip (principal); R11.2 Nausea with vomiting, unspecified; F41.9 Anxiety disorder, unspecified; F32.9 Major depressive disorder, single episode, unspecified; G43.909 Migraine, unspecified, not intractable, without status migrainosus; J44.9 Chronic obstructive pulmonary disease, unspecified; K21.9 Gastro-esophageal reflux disease without esophagitis; I25.10 Atherosclerotic heart disease of native coronary artery without angina pectoris; G47.30 Sleep apnea, unspecified; F17.210 Nicotine dependence, cigarettes, uncomplicated; Z86.711 Personal history of pulmonary embolism; Z79.51 Long term (current) use of inhaled steroids; Z79.899 Other long term (current) drug therapy; Z79.82 Long term (current) use of aspirin
CPT/HCPCS: 99283; Q0162

== ENCOUNTER 2018-07-18 15:29 | Emergency (ER) | payer MEDICARE ==
[2018-07-18] MEDS ORDERED: Mag-Al Plus 1200 MG/1200 MG/120 MG/30 ML UDCUP ONE (16:28)
[2018-07-18] MEDS ORDERED: Lidocaine Viscous Sol 2% 15 ml UD Cup ONE (16:28)
[2018-07-18] MEDS ORDERED: Sodium Chloride 0.9% 1,000 ML ONE (16:28)
[2018-07-18] MEDS ORDERED: Ondansetron PF 4 MG/2 ML Vial ONE (16:28)
[2018-07-18 16:37] LABS: %Lymphocytes 26.4 % (21.0-51.0); %Monocytes 7.3 % (0.0-10.0); %Neutrophils 63.3 % (42.0-75.0); Hemoglobin 16.7 g/dL (14.0-18.0); Mean Corpuscular HGB CONC 34.2 g/dL (32.0-36.0); Mean Corpuscular Hemoglobin 29.3 pg (27.0-31.0); Mean Corpuscular Volume 85.8 fL (78.0-98.0); Mean Platelet Volume 7.1 fL (7.4-10.4); Platelet Count 230 thou/uL (130-400); RBC Distribution Width 12.5 % (11.5-14.5); Red Blood Cell (RBC) Count 5.69 mill/uL (4.70-6.10)
[2018-07-18 16:38] LABS: #Basophils 0.2 thou/uL (0.0-0.2); #Eosinphils 0.1 thou/uL (0.0-0.7); #Lymphocytes 2.6 thou/uL (1.20-3.40); #Monocytes 0.7 thou/uL (0.11-0.59); #Neutrophils 6.3 thou/uL (1.40-6.50); %Basophils 2.1 % (0.0-1.0); %Eosinophils 0.8 % (0.0-10.0)
[2018-07-18 16:48] LABS: Carbon Dioxide 22 mmol/L (23-31); Chloride 103 mmol/L (98-107); Potassium 3.4 mmol/L (3.5-5.1); Sodium 139 mmol/L (136-145)
[2018-07-18 16:49] LABS: AST (SGOT) 18 U/L (5-34); Albumin 4.4 g/dL (3.4-4.8); Alkaline Phosphatase 149 U/L (40-150); Anion Gap 17 mmol/L (10-20); BUN (Urea Nitrogen) 16 mg/dL (8.4-25.7); Bilirubin, Total 2.4 mg/dL (0.2-1.2); Calc. Creatinine Clearance 0 mL/min (70-130); Calcium 10.5 mg/dL (7.8-10.44); Estimated GFR-MDRD 65; Globulin 3.3 g/dL (2.4-3.5); Glucose 107 mg/dL (80-115); Protein, Total 7.7 g/dL (5.8-8.1)
[2018-07-18 16:50] LABS: ALT (SGPT) 26 U/L (8-55); Lipase 10 U/L (8-78)
[2018-07-18] MEDS ORDERED: Famotidine In NaCl 20 mg/50 ml Premix Bag ONE (17:05)
[2018-07-18] MEDS ORDERED: Famotidine 20 MG TAB ONE (17:09)
[2018-07-18] MEDS ORDERED: Potassium Chloride 10 MEQ TAB ONE (17:12)
== END 2018-07-18 17:55 | disposition home or self-care (01) ==
LOC: MADERS 15:29
DX: R11.2 Nausea with vomiting, unspecified (principal); R10.10 Upper abdominal pain, unspecified; Z71.6 Tobacco abuse counseling; G47.33 Obstructive sleep apnea (adult) (pediatric); K21.9 Gastro-esophageal reflux disease without esophagitis; Z86.711 Personal history of pulmonary embolism; G43.909 Migraine, unspecified, not intractable, without status migrainosus; J44.9 Chronic obstructive pulmonary disease, unspecified; F41.9 Anxiety disorder, unspecified; F32.9 Major depressive disorder, single episode, unspecified; F17.210 Nicotine dependence, cigarettes, uncomplicated; Z79.899 Other long term (current) drug therapy; Z79.82 Long term (current) use of aspirin; Z79.51 Long term (current) use of inhaled steroids
CPT/HCPCS: 36415; 80053; 83605; 83690; 84484; 85025; 93005; J2405; J7050

== ENCOUNTER 2018-07-18 21:54 | Emergency (ER) | payer MEDICARE ==
[~2018-07-18 21:54] MED LIST changes: +Albuterol Sulfate 2.5 mg/0.5 ml Neb ONE; +Iopamidol 370 76% 100 ML VIAL ONE; -Sodium Chloride 0.9% 1,000 ML BAG ONE
[2018-07-18] MEDS ORDERED: Fentanyl 100 MCG/2 ML VIAL ONE (22:56)
[2018-07-18] MEDS ORDERED: Sodium Chloride 0.9% 100 ML ONE (22:57)
[2018-07-18] MEDS ORDERED: Sodium Chloride 0.9% 1,000 ML ONE (22:57)
[2018-07-18] MEDS ORDERED: Promethazine HCl 25 MG/ML VIAL ONE (22:57)
--- NOTE | 2018-07-19 00:24 | CT ---
CT abdomen with contrast CT pelvis with contrast: DATE: 07/19/2018 HISTORY: 63-year-old male with generalized abdominal pain COMPARISON: 12/21/2016 TECHNIQUE: IV injection of iodinated contrast media:Administered Oral contrast media:Not administered FINDINGS: Sclerotic changes of bilateral capital femoral epiphyses. New finding of cystic bone lesion at the la teral aspect of the right femoral head containing gas. Etiology and significance uncertain. Romero catheter within decompressed urinary bladder. Large number of sigmoid colonic diverticula without sig ns of acute diverticulitis. No hydronephrosis. IVC filter. No abdominal aortic aneurysm. Cholecystectomy clips. No small bowel dilation. No major pathology of liver, pancreas, adrenals, kidn eys, or spleen. No pneumoperitoneum or ascites. Appendix not visualized. No major interval change within the contents of the abdominal cavity and pelvic cavity. Lung bases are grossly clear. IMPRESSION: 1. No acute findings within the abdominal cavity and pelvic cavity. 2. Changes of avascular necrosis involving bilateral femoral heads. 3. Cystic bone lesion in the lateral aspect of right femoral head, containing small amount of gas. Et iology and significance uncertain.
== END 2018-07-19 01:25 | disposition home or self-care (01) ==
LOC: MADERS 21:54
DX: R10.31 Right lower quadrant pain (principal); Z71.6 Tobacco abuse counseling; G47.30 Sleep apnea, unspecified; I25.10 Atherosclerotic heart disease of native coronary artery without angina pectoris; K21.9 Gastro-esophageal reflux disease without esophagitis; Z86.711 Personal history of pulmonary embolism; G43.909 Migraine, unspecified, not intractable, without status migrainosus; Z86.73 Personal history of transient ischemic attack (TIA), and cerebral infarction without residual deficits; F41.9 Anxiety disorder, unspecified; F32.9 Major depressive disorder, single episode, unspecified; F17.210 Nicotine dependence, cigarettes, uncomplicated; Z79.82 Long term (current) use of aspirin; Z79.899 Other long term (current) drug therapy; Z79.51 Long term (current) use of inhaled steroids
CPT/HCPCS: 36415; 74177; 80053; 83605; 83690; 84484; 85025; 93005; 94640; 96361; 96365; 96375; 99406; J2405; J2550; J3010; J3490; J7050; J7611; J7620; Q9967

== ENCOUNTER 2019-01-16 14:10 | Outpatient (CLI) | payer MEDICARE ==
[2019-01-16 15:05] LABS: Bilirubin Negative (Negative); Blood, Urine Trace (Negative); Glucose, Urine (Dipstick) Negative (Negative); Leukocyte Moderate (Negative); Nitrite Positive (Negative); Protein, Urine (Dipstick) 30 mg/dL (Neg-Trace)
[2019-01-16 15:27] LABS: Clarity Cloudy (Clear)
[2019-01-16 15:29] LABS: RBC/HPF 0-3 HPF (0-3)
[2019-01-16 15:30] LABS: Mucous/LPF 2+ LPF (<2+)
[2019-01-16 15:31] LABS: Bacteria/HPF 1+ HPF (None Seen)
== END 2019-01-16 14:11 | disposition home or self-care (01) ==
LOC: MADLAB 14:10
PROVIDERS: ATTEND Family Medicine
DX: N18.9 Chronic kidney disease, unspecified (principal); N31.9 Neuromuscular dysfunction of bladder, unspecified; Z87.440 Personal history of urinary (tract) infections
CPT/HCPCS: 81001; 87086

== ENCOUNTER 2019-06-18 14:22 | Outpatient (CLI) | payer MEDICARE ==
[2019-06-18 14:28] LABS: Bilirubin Small (Negative); Blood, Urine Small (Negative); Clarity Cloudy (Clear); Glucose, Urine (Dipstick) Negative (Negative); Leukocyte Small (Negative); Nitrite Positive (Negative); Protein, Urine (Dipstick) 100 mg/dL (Neg-Trace)
[2019-06-18 14:36] LABS: Bacteria/HPF 3+ HPF (None Seen); Squamous Epithelial 0-3 HPF (0-3); WBC/HPF 21-50 HPF (0-3)
[2019-06-18 14:37] LABS: Triple Phosphate Crystal 2+ HPF (None Seen)
== END 2019-06-18 14:23 | disposition home or self-care (01) ==
LOC: MADLABBHPM 14:22
PROVIDERS: ATTEND Family Medicine
DX: N31.9 Neuromuscular dysfunction of bladder, unspecified (principal); I12.9 Hypertensive chronic kidney disease with stage 1 through stage 4 chronic kidney disease, or unspecified chronic kidney disease; N18.9 Chronic kidney disease, unspecified
CPT/HCPCS: 81001; 87086

== ENCOUNTER 2019-09-18 09:50 | Outpatient (CLI) | payer MEDICARE ==
[2019-09-18 10:13] LABS: #Basophils 0.1 thou/uL (0.0-0.2); #Eosinphils 0.4 thou/uL (0.0-0.7); #Lymphocytes 2.9 thou/uL (1.20-3.40); #Monocytes 0.8 thou/uL (0.11-0.59); #Neutrophils 3.9 thou/uL (1.40-6.50); %Basophils 1.7 % (0.0-1.0); %Eosinophils 4.9 % (0.0-10.0); %Lymphocytes 35.5 % (21.0-51.0); %Monocytes 9.7 % (0.0-10.0); %Neutrophils 48.2 % (42.0-75.0); Hemoglobin 15.7 g/dL (14.0-18.0); Mean Corpuscular HGB CONC 30.7 g/dL (32.0-36.0); Mean Corpuscular Hemoglobin 28.9 pg (27.0-31.0); Mean Corpuscular Volume 93.9 fL (78.0-98.0); Mean Platelet Volume 7.8 fL (7.4-10.4); Platelet Count 239 thou/uL (130-400); RBC Distribution Width 14.1 % (11.5-14.5); Red Blood Cell (RBC) Count 5.44 mill/uL (4.70-6.10); White Blood Cell (WBC) Count 8.2 thou/uL (4.8-10.8)
[2019-09-18 10:25] LABS: ALT (SGPT) 12 U/L (8-55); AST (SGOT) 10 U/L (5-34); Albumin 3.9 g/dL (3.4-4.8); Alkaline Phosphatase 136 U/L (40-110); Anion Gap 15 mmol/L (10-20); BUN (Urea Nitrogen) 8 mg/dL (8.4-25.7); Bilirubin, Total 0.5 mg/dL (0.2-1.2); Calc. Creatinine Clearance 0 mL/min (70-130); Calcium 9.8 mg/dL (7.8-10.44); Carbon Dioxide 25 mmol/L (23-31); Cardiac Risk 3.9 (Less than 4.5); Chloride 109 mmol/L (98-107); Cholesterol 122 mg/dl (< 200 Desired); Estimated GFR-MDRD 79; Globulin 2.5 g/dL (2.4-3.5); Glucose 83 mg/dL (80-115); HDL Cholesterol 31 mg/dL (>60 Neg Risk); LDL Cholesterol, Calculated 66 mg/dL; Protein, Total 6.4 g/dL (5.8-8.1); Sodium 144 mmol/L (136-145); Triglycerides 124 mg/dL (Less than 150)
[2019-09-18 17:15] LABS: Hemoglobin A1c 5.4 % (4.0-6.0)
== END 2019-09-18 09:51 | disposition home or self-care (01) ==
LOC: MADLAB 09:50
PROVIDERS: ATTEND Family Medicine
DX: J44.9 Chronic obstructive pulmonary disease, unspecified (principal); I25.10 Atherosclerotic heart disease of native coronary artery without angina pectoris; R73.01 Impaired fasting glucose
CPT/HCPCS: 80053; 80061; 83036; 85025

== ENCOUNTER 2019-10-10 10:23 | Outpatient (CLI) | payer MEDICARE ==
--- NOTE | 2019-10-10 10:47 | RAD ---
Radiograph right hip 2 views: 10/10/2019 HISTORY: 64-year-old male with chronic right hip pain. COMPARISON: 05/05/2018 FINDINGS: Whereas previously, the femoral head contour was maintained, it is now flattened, with new sclerosis. There is also a irregular curvilinear lucency at the lateral superior aspect of the femoral head consistent with fracture, probably not acute. There is a step-off at the superior lateral articular s urface of the femoral head due to this fracture. There is mild central-medial joint space narrowing. No dislocation. Degenerative bony hypertrophy of acetabular roof has become larger. IMPRESSION: Sequelae of avascular necrosis of the right femoral head, with associated femoral head partial collap se with nonacute fracture, with accelerated secondary osteoarthrosis
== END 2019-10-10 10:24 | disposition home or self-care (01) ==
LOC: MADRAD 10:23
PROVIDERS: ATTEND Family Medicine
DX: M25.551 Pain in right hip (principal); M16.7 Other unilateral secondary osteoarthritis of hip; M87.9 Osteonecrosis, unspecified

== ENCOUNTER 2019-12-26 16:20 | Inpatient (IN) | payer MEDICARE ==
[2019-12-26] MEDS ORDERED: Albuterol 200 PUFF (6.7GM INHALER) INH PRN (18:12)
[2019-12-26] MEDS ORDERED: Docusate 100 MG CAP PO PRN (18:12)
[2019-12-26] MEDS ORDERED: Ondansetron ODT 4 MG TAB PO PRN (18:12)
[2019-12-26] MEDS ORDERED: Nitroglycerin 0.4 MG TAB (25 Tab Bottle) SL PRN (18:12)
[2019-12-26] MEDS: HYDROcodone/Acetaminophen 7.5/325 mg Tablet PO PRN (19:32)
[2019-12-26] MEDS ORDERED: Escitalopram Oxalate 10 mg Tablet PO SCH (21:00)
[2019-12-26] MEDS ORDERED: FLU VACC QS2020-21(65YR UP)/PF 240 MCG/0.7 ML SYRINGE IM ONE (21:00)
[2019-12-26] MEDS: Metoprolol Tartrate 25 MG TAB PO SCH (21:09)
[2019-12-26] MEDS: risperiDONE 1 MG TAB PO SCH (21:09)
[2019-12-26] MEDS: Escitalopram Oxalate 10 mg Tablet PO SCH (21:10)
[2019-12-26] MEDS: Nitrofurantoin Monohyd/M-Cryst 100 MG CAP PO SCH (21:10)
[2019-12-26] MEDS: Pregabalin 75 MG CAP PO SCH (21:10)
[2019-12-26] MEDS: Atorvastatin Calcium 40 MG TAB PO SCH (21:10)
--- NOTE | 2019-12-27 06:31 | HP ---
CHIEF COMPLAINT: Weakness following right hip replacement. HISTORY OF PRESENT ILLNESS: The patient is a 64-year-old white male, who had been hospitalized at [facility] in [place] from 12/24/2019 until 12/26/2019. He has a history of avascular necrosis of the femoral head with severe pain with weightbearing, has been going on for over a year. He was seen in consultation by orthopedic surgeon, Dr. Vargas Bach, and patient was hospitalized at [facility] on 12/24/2019 and underwent a right hip total arthroplasty. The surgery went very well and he has not had any significant postop problems. He has been sent to [facility] for his rehabilitation to help with his severe deconditioning and also to help with his strengthening and gait training. The patient has a history of chronic urinary retention, for which he has an indwelling Romero catheter that has to be changed out every 2 weeks. He recently was found to have a UTI prior to surgery and has been on Macrobid 100 mg b.i.d. The patient has a history of severe COPD, complicated by some hypoxemia, for which he uses O2 at home. The patient was seen in his room after his admission. He said he thinks he is doing just fine. He says he has a pain in that right hip when he gets up and walks, but the pain is different from what it was prior to the surgery. This is more of a burning pain. He says he has been up and walked just a little short distance. His pain is being managed with hydrocodone 7.5 every 4 hours as needed. He said his Romero catheter is changed every 2 weeks and it was last changed out on 12/18/2019. The patient says he does get a little winded with activities from his COPD. He uses oxygen at home. PAST MEDICAL HISTORY: Hospitalized at [facility] from 12/23 until 12/26/2019 for avascular necrosis of the right hip, for which he underwent a right total hip arthroplasty by Dr. Vargas Bach; COPD, complicated by hypoxemia; hypertension; severe depression that is controlled with Lexapro and risperidone; and TIAs manifested with right-sided paresthesia, no recurrence the last 4 years; coronary artery disease, asymptomatic; retention of urine requiring indwelling Romero catheter and requires changing every 2 weeks, has a 24-Belgian Romero with a 30 mL balloon filled with 25 mL of fluid; anxiety disorder; obstructive sleep apnea, intolerant to CPAP; constipation; venous insufficiency of the lower extremities; persistent cigarette abuse; GERD; obesity; peripheral neuropathy of the lower extremities; chronic low back pain secondary to failed surgical back syndrome; hyperlipidemia. The patient has had cardiac stents, coronary artery bypass, cholecystectomy, sinus surgery, cervical disk surgery, appendectomy, TURP, removal of a testicular cyst, right knee surgery, bilateral mastoidectomy, bilateral inguinal hernia repair, spinal stimulator device in his right low back. Colonoscopy shows diverticulosis in 2010. EGD in 2010, normal. IVC filtration device placed in 2013. Nerve stimulator removed from his back in 2014, right rotator cuff repair. PRESENT MEDICATIONS: 1. Risperidone 2 mg at bedtime. 2. Lexapro 20 mg daily. 3. Metoprolol tartrate 25 mg b.i.d. 4. Macrobid 100 mg b.i.d. for 10 days. 5. Hydrocodone and acetaminophen 7.5/325 one every 4 hours as needed. 6. Atorvastatin 40 mg at bedtime. 7. Xarelto 10 mg daily. 8. Combivent 2 puffs q.i.d. 9. Aspirin 81 mg daily. 10. Plavix 75 mg daily. 11. Colace 100 mg daily p.r.n. 12. Furosemide 40 mg daily. 13. Zofran oral disintegrating tablets 4 mg every 6 hours as needed. 14. Nitroglycerin 0.4 mg sublingual p.r.n. chest pain. 15. Pantoprazole 40 mg b.i.d. 16. Lyrica 300 mg b.i.d. 17. Clonazepam 1 mg daily. ALLERGIES: METHADONE; FLOMAX; KEFLEX; SULFACETAMIDE; LEVAQUIN; HALOPERIDOL; TRAZODONE; DETROL; ZOCOR; THORAZINE CAUSE AGITATION; SEROQUEL, AGITATION; SYMBICORT, HOARSENESS; ANCEF; CEPHALEXIN; VANCOMYCIN CAUSES ANAPHYLAXIS; AND PROPOFOL CAUSES ANAPHYLAXIS. REVIEW OF SYSTEMS: CONSTITUTIONAL: Patient said he has not had any recent weight gain or loss. He has had no fever. HEAD AND NECK: No complaints. PULMONARY: Patient said he has a chronic cough from his COPD and gets winded with exertion. He does use his nebulizers and his DuoNebs 4 times a day and every 4 hours as needed. He has oxygen that he uses at home as needed. CARDIOVASCULAR: No chest pain. The patient said he is having a little cramping along his lower chest area when he turns, but just momentarily. GASTROINTESTINAL: No nausea, vomiting. The patient said his bowels have been sluggish since his surgery. GENITOURINARY: The patient has indwelling Romero catheter. It was last changed out on 12/17. This will be changed every 2 weeks with a #24-Belgian, 30 mL balloon filled with 25 mL of fluid. NEUROPSYCHIATRIC: The patient said his depression has been under good control. The patient has had no increased weakness in arms or legs. ADLs: The patient is independent of his ADLs and has indwelling Romero catheter. HABITS: The patient smokes a little less than a pack of cigarettes a day. Alcohol, none. SOCIAL HISTORY: The patient lives by himself. CODE STATUS: Full code. PHYSICAL EXAMINATION: GENERAL: Shows a pleasant 64-year-old white male, who is sitting up in bed. He is alert, talkative, oriented x3, recognizes me. VITAL SIGNS: Temperature 98.2, pulse 74, respirations 24, O2 saturation 91% on 4 L, blood pressure 109/73. HEENT: Head is normocephalic. Eyes, pupils are equal, round, and reactive. Ears, TMs are clear. Nose normal. Mouth and throat are normal. NECK: Carotids are equal and strong. No bruits. Thyroid is not enlarged. LUNGS: The patient has moderate breath sounds. There are expiratory wheezes and rhonchi present, which is chronic. HEART: Regular rate. No murmurs. ABDOMEN: Obese. There is no organomegaly. No areas of tenderness. GENITALIA: Patient has an indwelling Romero catheter. EXTREMITIES: There is no peripheral edema. The patient has a long incision along the right hip with a DuoDerm type of a long dressing over the incision. There is no surrounding redness nor drainage. NEUROLOGIC: The patient is alert and oriented x3. Cranial nerves 2 through 12 are intact. He has some generalized weakness more on that right hip from the hip replacement. Otherwise, no focal weakness. SKIN: No rash. IMPRESSION: 1. Generalized weakness and gait abnormality. a. Following right hip replacement on 12/24/19. 2. Avascular necrosis of the right hip. a. Caused chronic right hip pain with weightbearing. b. Status post right total hip replacement on 12/24/[address] Vargas Bach at [facility], hospitalized there from 12/23 to 12/25. 3. Chronic obstructive pulmonary disease. a. Complicated by chronic hypoxemia. 4. Hypertension. 5. Severe depression. a. Controlled with Lexapro and risperidone. 6. Atherosclerotic heart disease. a. Status post stents and coronary artery disease. b. Presently asymptomatic. 7. Urinary retention. a. Requiring indwelling Romero catheter. b. Requires catheter change out every 2 weeks with a 24-Belgian and 30 mL balloon filled with 25 mL of water. 8. Anxiety disorder, controlled. 9. 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 10. Constipation. 11. Venous insufficiency. 12. Cigarette abuse. 13. Hyperlipidemia. 14. Gastroesophageal reflux disease. 15. Peripheral neuropathy of the lower extremities, controlled. PLAN: Patient has been admitted to [facility] for purpose of physical therapy and occupational therapy. We will continue on his routine medicine and also we will continue on his breathing treatments and supplemental O2. OT and PT will work with him. He will be at full weightbearing. He will be up in a chair within his tolerance and he is receiving the Xarelto for DVT prophylaxis. His code status is full code. See orders. Job ID: [id number] [id number]
[2019-12-27 07:51] LABS: #Lymphocytes 1.9 thou/uL (1.20-3.40); #Monocytes 1.2 thou/uL (0.11-0.59); #Neutrophils 6.6 thou/uL (1.40-6.50); %Basophils 1.1 % (0.0-1.0); %Eosinophils 3.1 % (0.0-10.0); %Lymphocytes 18.4 % (21.0-51.0); %Monocytes 12.2 % (0.0-10.0); %Neutrophils 65.2 % (42.0-75.0); Hemoglobin 12.7 g/dL (14.0-18.0); Mean Corpuscular HGB CONC 32.1 g/dL (32.0-36.0); Mean Corpuscular Hemoglobin 29.7 pg (27.0-31.0); Mean Corpuscular Volume 92.3 fL (78.0-98.0); Mean Platelet Volume 6.9 fL (7.4-10.4); Platelet Count 168 thou/uL (130-400); RBC Distribution Width 12.7 % (11.5-14.5); Red Blood Cell (RBC) Count 4.27 mill/uL (4.70-6.10); White Blood Cell (WBC) Count 10.2 thou/uL (4.8-10.8)
[2019-12-27 07:52] LABS: #Basophils 0.1 thou/uL (0.0-0.2); #Eosinphils 0.3 thou/uL (0.0-0.7)
[2019-12-27 08:36] LABS: ALT (SGPT) 53 U/L (8-55); AST (SGOT) 23 U/L (5-34); Albumin 3.4 g/dL (3.4-4.8); Alkaline Phosphatase 117 U/L (40-110); Anion Gap 16 mmol/L (10-20); BUN (Urea Nitrogen) 16 mg/dL (8.4-25.7); Bilirubin, Total 1.7 mg/dL (0.2-1.2); Calc. Creatinine Clearance 120 mL/min (70-130); Calcium 9.6 mg/dL (7.8-10.44); Carbon Dioxide 33 mmol/L (23-31); Cardiac Risk 3.7 (Less than 4.5); Chloride 96 mmol/L (98-107); Cholesterol 116 mg/dl (< 200 Desired); Estimated GFR-MDRD 79; Glucose 88 mg/dL (80-115); HDL Cholesterol 31 mg/dL (>60 Neg Risk); LDL Cholesterol, Calculated 66 mg/dL; Potassium 3.8 mmol/L (3.5-5.1); Protein, Total 6.4 g/dL (5.8-8.1); Sodium 141 mmol/L (136-145); Triglycerides 97 mg/dL (Less than 150)
[2019-12-27] MEDS: Clopidogrel Bisulfate 75 MG TAB PO SCH (08:52)
[2019-12-27] MEDS: Pregabalin 75 MG CAP PO SCH ×2 (08:52→20:23)
[2019-12-27] MEDS: Furosemide 40 MG TAB PO SCH (08:53)
[2019-12-27] MEDS: Metoprolol Tartrate 25 MG TAB PO SCH ×2 (08:53→20:26)
[2019-12-27] MEDS: Nitrofurantoin Monohyd/M-Cryst 100 MG CAP PO SCH ×2 (08:53→20:23)
[2019-12-27] MEDS: Aspirin 81 mg Enteric Coated Tablet PO SCH (08:53)
[2019-12-27] MEDS: clonazePAM 0.5 MG TAB PO SCH ×2 (08:54→11:51)
[2019-12-27] MEDS: HYDROcodone/Acetaminophen 7.5/325 mg Tablet PO PRN (08:58)
[2019-12-27] MEDS ORDERED: clonazePAM 0.5 MG TAB PO SCH (09:00)
--- NOTE | 2019-12-27 14:23 | PRG ---
DATE OF SERVICE: 12/27/2019 SUBJECTIVE: The patient said he is doing all right this morning. He is in Physical Therapy working on a NuStDecisionlink machine, which operates his arms and his legs. His breathing is doing okay, about normal for him. The nurses checked with Pharmacy, where he fills his medicine, and clonazepam is 1 mg that he takes each morning. He had thought this was 2 mg. This was corrected to 1 mg to receive here at the hospital. OBJECTIVE: GENERAL: The patient is alert, appears comfortable, in no distress. VITAL SIGNS: Temp is 99.4, pulse 75, respirations 24, O2 saturation 91% on 4 L, and blood pressure 114/71. LUNGS: Moderate breath sounds with chronic expiratory wheeze and rhonchi. HEART: Regular rate. EXTREMITIES: No edema. The incision has an overlying DuoDerm-type dressing with no surrounding redness or drainage. LABORATORY DATA: Shows H and H of 12.7 and 39.6 with a white cell count of 10,200 with 65% segs, 18% lymphocytes, and a platelet count of a 168,000. His other studies are pending. ASSESSMENT: 1. Generalized weakness and gait abnormality;. a. Following right hip replacement on 12/24/2019. b. Improving, walking short distance with a walker as of 12/26. 2. Avascular necrosis of the right hip;. a. Caused chronic right hip pain with weightbearing. b. Status post right total hip replacement on 12/24/2019, by Dr. Vargas Bach, orthopedic surgeon, at [facility]. Hospitalized there from 12/23 to 12/25. 3. Chronic obstructive pulmonary disease;. a. Complicated by chronic hypoxemia requiring supplemental O2. 4. Hypertension. 5. Severe depression;. a. Controlled with Lexapro and risperidone. 6. Coronary artery disease;. a. Status post stents and coronary artery bypass. b. Presently asymptomatic. 7. Urinary retention;. a. Requires indwelling Romero catheter. b. Catheter changed out every 2 weeks with a 24-Korean and a 30 mL balloon and filled with 25 mL water. c. Last change out 12/18/2019. 8. Anxiety disorder. Controlled. 9. 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 10. Constipation. 11. Venous insufficiency. 12. Cigarette abuse. 13. Hyperlipidemia. 14. Gastroesophageal reflux disease. 15. Peripheral neuropathy of the lower extremity. PLAN: Continue present care. Continue PT and OT. [facility] ID[facility] [id number] [facility]
[2019-12-27] MEDS: Rivaroxaban 10 MG TAB PO SCH (17:16)
[2019-12-27] MEDS: risperiDONE 1 MG TAB PO SCH (20:25)
[2019-12-27] MEDS: Atorvastatin Calcium 40 MG TAB PO SCH (20:25)
[2019-12-27] MEDS: Escitalopram Oxalate 10 mg Tablet PO SCH (20:26)
[2019-12-28] MEDS: Pregabalin 75 MG CAP PO SCH ×2 (08:13→20:16)
[2019-12-28] MEDS: clonazePAM 0.5 MG TAB PO SCH (08:13)
[2019-12-28] MEDS: Nitrofurantoin Monohyd/M-Cryst 100 MG CAP PO SCH ×2 (08:14→20:17)
[2019-12-28] MEDS: Clopidogrel Bisulfate 75 MG TAB PO SCH (08:14)
[2019-12-28] MEDS: Aspirin 81 mg Enteric Coated Tablet PO SCH (08:14)
[2019-12-28] MEDS: Furosemide 40 MG TAB PO SCH (08:21)
[2019-12-28] MEDS: Metoprolol Tartrate 25 MG TAB PO SCH ×2 (08:21→20:17)
--- NOTE | 2019-12-28 13:05 | PRG ---
DATE OF SERVICE: 12/28/2019 SUBJECTIVE: The patient said he did not sleep well last night. He is doing better though with his therapy, doing better, walking a little bit further. The hip still hurts, but he is feeling better. OBJECTIVE: GENERAL: The patient is sitting in a chair and working with occupational therapy, learning to put on his socks with an assist device and he has done very well. He appears comfortable and in no distress. VITAL SIGNS: His temperature is 100, pulse 73, respirations 18, O2 saturation 96% on 4 L, blood pressure 108/62. LUNGS: The patient has good breath sounds. The patient has a chronic wheeze and rhonchi, they are little less though today. HEART: Regular rate. Incision is dry. There is no drainage around the incision. There is no surrounding redness. EXTREMITIES: There is no peripheral edema in the legs. ASSESSMENT: 1. Generalized weakness and gait abnormality. a. Following right hip replacement on 12/24/2019. b. Improving, walking further with walker as of 12/27. 2. Avascular necrosis of the right hip. a. Caused chronic right hip pain with weightbearing. b. Status post right total hip replacement on 12/24/[address] Vargas Bach, orthopedic surgeon at [facility]. Hospitalized there from 12/23 until 12/25. 3. Chronic obstructive pulmonary disease. a. Complicated by chronic hypoxemia requiring supplemental O2. b. Stable as of 12/27. 4. Hypertension. 5. Severe depression. a. Controlled with Lexapro and risperidone. 6. Coronary artery disease. a. Status post stents and coronary artery bypass. b. Presently asymptomatic. 7. Urinary retention. a. Requires indwelling Romero catheter. b. Catheter changed every 2 weeks with a 24-Albanian with 30 mL balloon and filled with 25 mL water. c. Last changed on 12/18/2019. 8. Anxiety disorder, controlled. 9. 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 10. Constipation. 11. Venous insufficiency. 12. Cigarette abuse. 13. Hyperlipidemia. 14. Gastroesophageal reflux disease, controlled. 15. Peripheral neuropathy of the lower extremities. PLAN: The patient is doing well. He does have a low-grade fever, probably from the recent surgery. We will continue his present care. Continue PT and OT. Job ID: [id number] [facility]
[2019-12-28] MEDS: HYDROcodone/Acetaminophen 7.5/325 mg Tablet PO PRN ×2 (14:43→21:32)
[2019-12-28] MEDS: Rivaroxaban 10 MG TAB PO SCH (16:51)
[2019-12-28] MEDS: Escitalopram Oxalate 10 mg Tablet PO SCH (20:17)
[2019-12-28] MEDS: Atorvastatin Calcium 40 MG TAB PO SCH (20:17)
[2019-12-28] MEDS: risperiDONE 1 MG TAB PO SCH (20:17)
[2019-12-29] MEDS: HYDROcodone/Acetaminophen 7.5/325 mg Tablet PO PRN ×3 (05:37→20:42)
[2019-12-29] MEDS: clonazePAM 0.5 MG TAB PO SCH (08:42)
[2019-12-29] MEDS: Pregabalin 75 MG CAP PO SCH ×2 (08:42→20:38)
[2019-12-29] MEDS: Furosemide 40 MG TAB PO SCH (08:43)
[2019-12-29] MEDS: Aspirin 81 mg Enteric Coated Tablet PO SCH (08:43)
[2019-12-29] MEDS: Clopidogrel Bisulfate 75 MG TAB PO SCH (08:43)
[2019-12-29] MEDS: Nitrofurantoin Monohyd/M-Cryst 100 MG CAP PO SCH ×2 (08:43→20:38)
[2019-12-29] MEDS: Metoprolol Tartrate 25 MG TAB PO SCH ×2 (08:45→20:39)
[2019-12-29] MEDS: Rivaroxaban 10 MG TAB PO SCH (16:49)
[2019-12-29] MEDS: risperiDONE 1 MG TAB PO SCH (20:39)
[2019-12-29] MEDS: Atorvastatin Calcium 40 MG TAB PO SCH (20:39)
[2019-12-29] MEDS: Escitalopram Oxalate 10 mg Tablet PO SCH (20:39)
[2019-12-30] MEDS: HYDROcodone/Acetaminophen 7.5/325 mg Tablet PO PRN ×3 (05:18→22:37)
[2019-12-30] MEDS: clonazePAM 0.5 MG TAB PO SCH (08:14)
[2019-12-30] MEDS: Pregabalin 75 MG CAP PO SCH ×2 (08:14→21:07)
[2019-12-30] MEDS: Metoprolol Tartrate 25 MG TAB PO SCH ×2 (08:15→21:09)
[2019-12-30] MEDS: Furosemide 40 MG TAB PO SCH (08:15)
[2019-12-30] MEDS: Aspirin 81 mg Enteric Coated Tablet PO SCH (08:15)
[2019-12-30] MEDS: Nitrofurantoin Monohyd/M-Cryst 100 MG CAP PO SCH ×2 (08:15→21:07)
[2019-12-30] MEDS: Clopidogrel Bisulfate 75 MG TAB PO SCH (08:15)
[2019-12-30] MEDS ORDERED: Polyethylene Glycol 3350 17 GM Packet PO SCH (11:30)
[2019-12-30] MEDS: Rivaroxaban 10 MG TAB PO SCH (16:47)
[2019-12-30] MEDS: Atorvastatin Calcium 40 MG TAB PO SCH (21:07)
[2019-12-30] MEDS: risperiDONE 1 MG TAB PO SCH (21:08)
[2019-12-30] MEDS: Escitalopram Oxalate 10 mg Tablet PO SCH (21:09)
--- NOTE | 2019-12-31 05:47 | PRG ---
DATE OF SERVICE: 12/30/2019 SUBJECTIVE: The patient says he is feeling better. This morning, he has been up in a chair. He has been walking further and transferring easier. He has had plenty urinary output. OBJECTIVE: GENERAL: The patient is sitting up in a chair, was able to stand up without any help. He appears in no distress. VITAL SIGNS: His temperature is 98.8, pulse 69, respirations 20, O2 saturation 93% on 4 L, blood pressure 103/65. LUNGS: Breath sounds are good. There is some expiratory wheeze and rhonchi that are chronic, but these seem a little less today. HEART: Regular rate. EXTREMITIES: No edema. The incision of the right hip, there is no surrounding redness. No drainage. The DuoDERM type dressing over the incision is intact. ASSESSMENT: 1. Generalized weakness and gait abnormality. a. Following recent right hip replacement on 12/24/2019. b. Improving. Walking further with walker as of 12/29. 2. Avascular necrosis of the right hip. a. Caused chronic right hip pain with weightbearing. b. Status post right total hip replacement on 12/24/[address] Vargas Bach, orthopedic surgeon at [facility], hospitalized there from 12/23 until 12/25. 3. Chronic obstructive pulmonary disease. a. Complicated by chronic hypoxemia requiring supplemental O2. b. Stable as of 12/29. 4. Hypertension. 5. Severe depression. a. Controlled with Lexapro and risperidone. 6. Coronary artery disease. a. Status post stent and coronary artery bypass, presently asymptomatic. 7. Chronic urinary retention. a. Requires indwelling Romero catheter. b. Catheter changed every 2 weeks with a 24-Danish with 30 mL balloon and filled with 25 mL water. c. Last changed on 12/18/2019. 8. Anxiety disorder, controlled. 9. 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 10. Constipation. 11. Venous insufficiency. 12. Cigarette abuse. a. Off cigarettes since his hospitalization. 13. Hyperlipidemia. 14. Gastroesophageal reflux disease. 15. Peripheral neuropathy of the lower extremities, controlled. PLAN: The patient is doing better. We will continue present care. Continue PT and OT. Job ID: [id number] [facility]
[2019-12-31] MEDS: Metoprolol Tartrate 25 MG TAB PO SCH ×2 (08:25→19:59)
[2019-12-31] MEDS: Furosemide 40 MG TAB PO SCH (08:25)
[2019-12-31] MEDS: Aspirin 81 mg Enteric Coated Tablet PO SCH (08:25)
[2019-12-31] MEDS: Clopidogrel Bisulfate 75 MG TAB PO SCH (08:25)
[2019-12-31] MEDS: clonazePAM 0.5 MG TAB PO SCH (08:25)
[2019-12-31] MEDS: Nitrofurantoin Monohyd/M-Cryst 100 MG CAP PO SCH ×2 (08:25→20:00)
[2019-12-31] MEDS: HYDROcodone/Acetaminophen 7.5/325 mg Tablet PO PRN ×3 (08:26→19:54)
[2019-12-31] MEDS: Polyethylene Glycol 3350 17 GM Packet PO SCH (08:27)
[2019-12-31] MEDS: Pregabalin 75 MG CAP PO SCH ×2 (08:34→19:59)
--- NOTE | 2019-12-31 13:09 | PRG ---
DATE OF SERVICE: 12/31/2019 SUBJECTIVE: The patient said he is feeling better today, just still has a little achiness in that hip, but overall improving. He is doing good with physical therapy and has already been to therapy this morning. OBJECTIVE: GENERAL: The patient is sitting up in his bedside chair, alert, talkative, appears comfortable and in no distress. VITAL SIGNS: Temp is 98.2, pulse 69, respirations 18, O2 saturation 93% on 4 L, and blood pressure 108/66. LUNGS: Have good breath sounds. There is some expiratory wheeze and rhonchi, more of expiratory rhonchi, less today just on normal inspiration and expiration. HEART: Regular rate. EXTREMITIES: No edema. ASSESSMENT: 1. Generalized weakness and gait abnormality. a. Following recent right hip replacement on 12/24/2019. b. Improving. Walking further. Uses a walker as of 12/30. 2. Avascular necrosis of the right hip. a. Caused chronic right hip pain with weightbearing. b. Status post right total hip replacement on 12/24/2019 by Vargas Bach, orthopedic surgeon at [facility], hospitalized there from 12/23 to 12/25. 3. Chronic obstructive pulmonary disease. a. Complicated by chronic hypoxemia, requiring supplemental O2. b. Stable as of 12/30. 4. Hypertension. 5. Severe depression. a. Controlled with Lexapro and risperidone. 6. Coronary artery disease. a. Status post stents and coronary artery bypass, presently asymptomatic. 7. Chronic urinary retention. a. Requires indwelling Romero catheter. b. Catheter is changed every two weeks with a 24-Bhutanese with a 30 mL balloon filled with 25 mL of water. The last change was on 12/26/2019. 8. Anxiety disorder, controlled. 9. 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 10. Constipation, controlled. 11. Venous insufficiency, controlled. 12. Cigarette abuse. a. Off cigarettes since his hospitalization. 13. Peripheral neuropathy of the lower extremities. PLAN: The patient is doing very well. We will continue present care. Continue PT and OT. Job ID: [id number] [facility]
[2019-12-31] MEDS: Rivaroxaban 10 MG TAB PO SCH (15:55)
[2019-12-31] MEDS: Atorvastatin Calcium 40 MG TAB PO SCH (20:00)
[2019-12-31] MEDS: Escitalopram Oxalate 10 mg Tablet PO SCH (20:01)
[2019-12-31] MEDS: risperiDONE 1 MG TAB PO SCH (20:01)
[2020-01-01] MEDS: HYDROcodone/Acetaminophen 7.5/325 mg Tablet PO PRN ×3 (05:24→21:10)
[2020-01-01] MEDS: Metoprolol Tartrate 25 MG TAB PO SCH ×2 (09:04→20:37)
[2020-01-01] MEDS: Furosemide 40 MG TAB PO SCH (09:04)
[2020-01-01] MEDS: Aspirin 81 mg Enteric Coated Tablet PO SCH (09:04)
[2020-01-01] MEDS: Clopidogrel Bisulfate 75 MG TAB PO SCH (09:04)
[2020-01-01] MEDS: Nitrofurantoin Monohyd/M-Cryst 100 MG CAP PO SCH ×2 (09:04→20:37)
[2020-01-01] MEDS: clonazePAM 0.5 MG TAB PO SCH (09:04)
[2020-01-01] MEDS: Pregabalin 75 MG CAP PO SCH ×2 (09:05→20:36)
[2020-01-01] MEDS: Polyethylene Glycol 3350 17 GM Packet PO SCH (09:07)
--- NOTE | 2020-01-01 10:48 | PRG ---
DATE OF SERVICE: 01/01/2020 SUBJECTIVE: The patient says he is doing good today. He is making progress with his therapy. His breathing has been doing good. OBJECTIVE: GENERAL: The patient is sitting up in bed. He is eating breakfast. He is alert, talkative, appears in no distress. He mentioned to me that this Romero catheter had been changed on the day of his admission on 12/26/2019. OBJECTIVE: GENERAL: The patient is alert, appears in no distress. VITAL SIGNS: His temperature 98.3 pulse 58, respirations 20, O2 saturation 94% on 3 L, blood pressure 114/74. LUNGS: Good breath sounds. There is some minimal wheeze on forced expiration only. Overall, his lungs are sounding better each day. HEART: Regular rate. EXTREMITIES: No edema. Incision is doing well. Dressing will be changed today. ASSESSMENT: 1. Generalized weakness and gait abnormality. a. Following recent right hip replacement on 12/24/2019. b. Improving. Walking further using a walker to help stabilize his gait as of 12/31. 2. Avascular necrosis of the right hip. a. Caused chronic right hip pain with weightbearing. b. Status post right total hip replacement on 12/24/2019 by Vargas Bach, Orthopedic Surgeon at [facility]. Hospitalized from 12/23 to 12/25. 3. Chronic obstructive pulmonary disease. a. Complicated by chronic hypoxemia requiring supplemental O2. b. O2 down to 3 L with O2 saturation of 94%. Lungs are sounding much more clear as of 12/31. 4. Hypertension. 5. Severe depression. a. Controlled with Lexapro and risperidone. 6. Coronary artery disease. a. Status post stents and coronary artery bypass, presently asymptomatic. 7. Chronic urinary retention. a. Requires indwelling Romero catheter. Last changed on 12/26/2019, due to be changed every 2 weeks. 8. Anxiety disorder, controlled. 9. 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 10. Constipation, controlled. 11. Venous insufficiency, controlled. 12. Cigarette abuse. a. Remains off cigarettes during hospitalization. 13. Peripheral neuropathy, controlled. PLAN: The patient is doing very well. His DuoDerm type of dressing over the incision will be changed. Continue PT and OT. Job ID: [id number] [facility]
[2020-01-01] MEDS: Rivaroxaban 10 MG TAB PO SCH (17:02)
[2020-01-01] MEDS: risperiDONE 1 MG TAB PO SCH (20:37)
[2020-01-01] MEDS: Escitalopram Oxalate 10 mg Tablet PO SCH (20:37)
[2020-01-01] MEDS: Atorvastatin Calcium 40 MG TAB PO SCH (20:37)
[2020-01-02 05:16] LABS: Hemoglobin 12.1 g/dL (14.0-18.0); Platelet Count 262 thou/uL (130-400)
[2020-01-02] MEDS: Pregabalin 75 MG CAP PO SCH ×2 (08:11→21:05)
[2020-01-02] MEDS: clonazePAM 0.5 MG TAB PO SCH (08:12)
[2020-01-02] MEDS: Nitrofurantoin Monohyd/M-Cryst 100 MG CAP PO SCH ×2 (08:13→21:07)
[2020-01-02] MEDS: Metoprolol Tartrate 25 MG TAB PO SCH ×2 (08:13→21:07)
[2020-01-02] MEDS: Clopidogrel Bisulfate 75 MG TAB PO SCH (08:13)
[2020-01-02] MEDS: Aspirin 81 mg Enteric Coated Tablet PO SCH (08:13)
[2020-01-02] MEDS: Polyethylene Glycol 3350 17 GM Packet PO SCH (08:13)
[2020-01-02] MEDS: Furosemide 40 MG TAB PO SCH (08:13)
[2020-01-02] MEDS: HYDROcodone/Acetaminophen 7.5/325 mg Tablet PO PRN ×3 (08:18→17:55)
[2020-01-02] MEDS: Senokot S 8.6-50 MG TAB PO SCH ×2 (08:24→21:08)
[2020-01-02] MEDS: Rivaroxaban 10 MG TAB PO SCH (17:35)
[2020-01-02] MEDS: Escitalopram Oxalate 10 mg Tablet PO SCH (21:06)
[2020-01-02] MEDS: risperiDONE 1 MG TAB PO SCH (21:07)
[2020-01-02] MEDS: Atorvastatin Calcium 40 MG TAB PO SCH (21:07)
[2020-01-03] MEDS: Acetaminophen 325 MG TAB PO PRN (05:19)
[2020-01-03] MEDS: clonazePAM 0.5 MG TAB PO SCH (08:00)
[2020-01-03] MEDS: Furosemide 40 MG TAB PO SCH (08:01)
[2020-01-03] MEDS: Clopidogrel Bisulfate 75 MG TAB PO SCH (08:01)
[2020-01-03] MEDS: Pregabalin 75 MG CAP PO SCH ×2 (08:01→20:40)
[2020-01-03] MEDS: Metoprolol Tartrate 25 MG TAB PO SCH ×2 (08:01→20:34)
[2020-01-03] MEDS: Aspirin 81 mg Enteric Coated Tablet PO SCH (08:01)
[2020-01-03] MEDS: Senokot S 8.6-50 MG TAB PO SCH ×2 (08:01→20:37)
[2020-01-03] MEDS: Polyethylene Glycol 3350 17 GM Packet PO SCH (08:02)
[2020-01-03] MEDS: HYDROcodone/Acetaminophen 7.5/325 mg Tablet PO PRN ×4 (08:05→20:41)
--- NOTE | 2020-01-03 09:57 | PRG ---
DATE OF SERVICE: 01/03/2020 SUBJECTIVE: The patient says he is doing better. The nurse reported that the urine was very cloudy and it looked like there was some little purulent drainage in part of the tubing. The patient complains of occasional bladder spasm. This morning, the urine looks a little better, but still is a little dark. Still has some evidence of a little purulent changes present. A catheter that he usually wears that is a 22-Tristanian with a 30 mL balloon has been ordered, should come in today. The catheter will be changed out and have urine culture obtained and urinalysis with the new catheter. OBJECTIVE: GENERAL: The patient is sitting up on the edge of the bed. He is alert, talkative, looks like he is doing better. He appears in no distress. VITAL SIGNS: His temperature is 98.2, pulse 66, respiration 18, O2 saturation 97% on 3 L, and blood pressure 113/70. LUNGS: The patient's breath sounds are good. The patient has some rhonchi and some wheeze on forced expiration, these are much less than when he first came in. Overall, his lungs sound better. HEART: Regular rate. EXTREMITIES: No edema. LABORATORY DATA: H and H yesterday were 12.1 and 37.7 with a platelet count of 262. ASSESSMENT: 1. Generalized weakness and gait abnormality. a. Following recent right hip replacement on 12/24/2019. b. Improving. Walking further using a walker and transfers are improving as of 01/02. 2. Avascular necrosis of the right hip. a. Caused chronic pain with weightbearing. b. Status post right total hip replacement on 12/24/2019 by Vargas Bach, orthopedic surgeon at [facility]. Hospitalized there from 12/23 to 12/25. 3. Chronic obstructive pulmonary disease. a. Complicated by chronic hypoxemia requiring supplemental O2. 4. Hypertension. 5. Severe depression. a. Controlled with Lexapro and risperidone. 6. Coronary artery disease. a. Status post stents and coronary artery bypass. Presently asymptomatic. 7. Chronic urinary retention. a. Requires indwelling Romero catheter. Last changed on 12/25, usually changed every two weeks. b. Due to change today due to some purulent-looking drainage. We will obtain UA and culture. The patient wears a 22-Tristanian Romero catheter with a 30 mL balloon with 25 mL of water. 8. Anxiety disorder, controlled. 9. 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 10. Constipation, controlled. 11. Venous insufficiency, controlled. 12. Cigarette abuse. a. Remains off the cigarettes during this hospitalization. 13. Peripheral neuropathy, controlled. PLAN: The patient has continued to progress. We will continue PT/OT. The patient due to have a catheter change out today earlier than usual due to the appearance of the urine. We will obtain a UA and culture. Job ID: [id number] [facility]
[2020-01-03 15:55] LABS: Bilirubin Negative (Negative); Blood, Urine Large (Negative); Clarity Slightly Cloudy (Clear); Glucose, Urine (Dipstick) Negative (Negative); Ketone, Urine Negative (Negative); Leukocyte Moderate (Negative); Nitrite Negative (Negative); Protein, Urine (Dipstick) Negative (Neg-Trace); pH, Urine 6.5 (5.0-9.0)
[2020-01-03 16:03] LABS: Bacteria/HPF 3+ HPF (None Seen); RBC/HPF Greater than 50 HPF (0-3); WBC/HPF Greater Than 50 HPF (0-3)
[2020-01-03] MEDS: Rivaroxaban 10 MG TAB PO SCH (16:16)
[2020-01-03] MEDS: Escitalopram Oxalate 10 mg Tablet PO SCH (20:33)
[2020-01-03] MEDS: risperiDONE 1 MG TAB PO SCH (20:34)
[2020-01-03] MEDS: Atorvastatin Calcium 40 MG TAB PO SCH (20:35)
[2020-01-04] MEDS: Pregabalin 75 MG CAP PO SCH ×2 (08:26→20:33)
[2020-01-04] MEDS: clonazePAM 0.5 MG TAB PO SCH (08:27)
[2020-01-04] MEDS: Polyethylene Glycol 3350 17 GM Packet PO SCH (08:31)
[2020-01-04] MEDS: Aspirin 81 mg Enteric Coated Tablet PO SCH (08:31)
[2020-01-04] MEDS: Metoprolol Tartrate 25 MG TAB PO SCH ×2 (08:32→20:32)
[2020-01-04] MEDS: Senokot S 8.6-50 MG TAB PO SCH ×2 (08:32→20:33)
[2020-01-04] MEDS: Furosemide 40 MG TAB PO SCH (08:32)
[2020-01-04] MEDS: Clopidogrel Bisulfate 75 MG TAB PO SCH (08:32)
[2020-01-04] MEDS: HYDROcodone/Acetaminophen 7.5/325 mg Tablet PO PRN ×3 (08:34→19:11)
[2020-01-04] MEDS ORDERED: Nitrofurantoin Monohyd/M-Cryst 100 MG CAP PO SCH (12:15)
--- NOTE | 2020-01-04 13:10 | PRG ---
DATE OF SERVICE: 01/04/2020 SUBJECTIVE: The patient says he is doing good this morning. He has soreness along the incisional area of that right hip. He is doing better with his therapy. He had started going up and down some steps, but he said that created increased soreness, so has not done that today. His catheter was changed out today and his urine output has been excellent with very clear lightly yellow urine. OBJECTIVE: GENERAL: The patient is sitting up in a chair. He is alert, appears comfortable, in no distress. VITAL SIGNS: Temperature 96.1 axillary, pulse 58, respirations 20, O2 saturation 100%, blood pressure 104/65. LUNGS: Good breath sounds. There is a very faint wheeze on expiration. Overall, his lungs sound better. HEART: Regular rate. EXTREMITIES: No edema. LABORATORY DATA: His urine shows wbc's greater than 50, rbc's greater than 50, 3+ bacteria, nitrite negative, culture pending. ASSESSMENT: 1. Generalized weakness and gait abnormality. a. Following recent right hip replacement on 12/24/2019. b. Improving. Walking further using a walker and transfers are improving as of 01/03. 2. Avascular necrosis of the right hip. a. Caused chronic pain with weightbearing. b. Status post right total hip replacement on 12/24/2019 by Vargas Bach, orthopedic surgeon at [facility]. Hospitalized from 12/23 to 12/25. c. Continued improvement as of 01/03. 3. Chronic obstructive pulmonary disease. a. Complicated by chronic hypoxemia requiring supplemental O2. b. Stable as of 01/03. Overall, lungs sound better since his hospitalization, he has been off cigarettes. 4. Hypertension. 5. Severe depression. a. Controlled with Lexapro and risperidone. 6. Coronary artery disease. a. Status post stents and coronary artery bypass, presently asymptomatic. 7. Chronic urinary retention. a. Requires indwelling Romero catheter. b. Changed out on 01/03/2020. 8. Anxiety disorder, controlled. 9. 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 10. Constipation. 11. Venous insufficiency, controlled. 12. Cigarette abuse. a. Remains off cigarettes during this hospitalization. 13. Peripheral neuropathy, controlled. 14. Possible urinary tract infection. a. Urinalysis on Romero changed out on 01/02 showed wbc's greater than 50. PLAN: Continue present care. Continue catheter change out every 2 weeks. Continue PT and OT. We will place the patient on antibiotics for possible urinary tract infection using Macrodantin, has a long list of allergies, but none of these are present. Job ID: [id number] [facility]
[2020-01-04] MEDS: Rivaroxaban 10 MG TAB PO SCH (17:32)
[2020-01-04] MEDS: Escitalopram Oxalate 10 mg Tablet PO SCH (20:32)
[2020-01-04] MEDS: Nitrofurantoin Monohyd/M-Cryst 100 MG CAP PO SCH (20:33)
[2020-01-04] MEDS: risperiDONE 1 MG TAB PO SCH (20:35)
[2020-01-04] MEDS: Atorvastatin Calcium 40 MG TAB PO SCH (20:35)
[2020-01-05] MEDS: HYDROcodone/Acetaminophen 7.5/325 mg Tablet PO PRN ×3 (05:06→19:42)
[2020-01-05] MEDS: Pregabalin 75 MG CAP PO SCH ×2 (08:59→20:58)
[2020-01-05] MEDS: clonazePAM 0.5 MG TAB PO SCH (09:00)
[2020-01-05] MEDS: Nitrofurantoin Monohyd/M-Cryst 100 MG CAP PO SCH ×2 (09:01→21:01)
[2020-01-05] MEDS: Senokot S 8.6-50 MG TAB PO SCH ×2 (09:01→21:02)
[2020-01-05] MEDS: Clopidogrel Bisulfate 75 MG TAB PO SCH (09:01)
[2020-01-05] MEDS: Aspirin 81 mg Enteric Coated Tablet PO SCH (09:01)
[2020-01-05] MEDS: Metoprolol Tartrate 25 MG TAB PO SCH ×2 (09:01→21:01)
[2020-01-05] MEDS: Furosemide 40 MG TAB PO SCH (09:01)
[2020-01-05] MEDS: Polyethylene Glycol 3350 17 GM Packet PO SCH (09:01)
[2020-01-05] MEDS: Rivaroxaban 10 MG TAB PO SCH (17:02)
[2020-01-05] MEDS: Escitalopram Oxalate 10 mg Tablet PO SCH (21:00)
[2020-01-05] MEDS: Atorvastatin Calcium 40 MG TAB PO SCH (21:01)
[2020-01-05] MEDS: risperiDONE 1 MG TAB PO SCH (21:02)
[2020-01-06] MEDS: HYDROcodone/Acetaminophen 7.5/325 mg Tablet PO PRN ×3 (03:25→23:48)
--- NOTE | 2020-01-06 05:59 | PRG ---
DATE OF SERVICE: 01/05/2020 SUBJECTIVE: The patient said he is doing better. He has been able to go without his oxygen since last evening. He says his hip is feeling better, still has some soreness. He is doing better with his physical therapy. OBJECTIVE: GENERAL: The patient is lying in bed. He is alert, appears comfortable. He is talkative, appears in no distress. VITAL SIGNS: His temperature is 97.8, pulse 58. His respirations are 20, O2 saturation 95% on room air, blood pressure 112/71. LUNGS: The patient has good breath sounds. There is some mild expiratory wheeze, rhonchi. HEART: Regular rate. Incision is healing well. Magen are present. There is no drainage or redness. EXTREMITIES: Lower extremities have no edema. LABORATORY DATA: His urine culture is growing a gram-negative james greater than 100,000. Final report pending. ASSESSMENT: 1. Generalized weakness and gait abnormality. a. Following recent right hip replacement on 12/24/2019. b. Improving. Walking further transferring better as of 01/04. 2. Avascular necrosis of the right hip. a. Chronic pain with weightbearing. b. Status post right total hip replacement on 12/24/[address] Vargas Bach, orthopedic surgeon at [facility], hospitalized 12/24/2019 till 12/26/2019. c. Continued improvement as of 01/04. 3. Chronic obstructive pulmonary disease. a. Complicated by chronic hypoxemia requiring supplemental O2. b. Improved since he has been off cigarette. The patient is having episodes where he can leave his O2 off as of 01/04. 4. Hypertension. 5. Severe depression. a. Controlled with Lexapro and risperidone. 6. Coronary artery disease. a. Status post stents and coronary artery bypass. Presently asymptomatic. 7. Chronic urinary retention. a. Requires indwelling Romero catheter. b. Changed out on 01/03/2020. 8. Anxiety disorder, controlled. 9. 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 10. Constipation, controlled. 11. Venous insufficiency, controlled. 12. Cigarette abuse. a. Remains off cigarettes during this hospitalization. 13. Peripheral neuropathy, controlled. 14. Possible urinary tract infection. a. Culture pending, presently on Macrobid as of 01/04. PLAN: The patient continues to improve. We will continue PT/OT. The patient due to see Dr. Bach, his orthopedic surgeon, on 01/07. Job ID: [id number] [facility]
[2020-01-06] MEDS: clonazePAM 0.5 MG TAB PO SCH (08:38)
[2020-01-06] MEDS: Pregabalin 75 MG CAP PO SCH ×2 (08:39→20:06)
[2020-01-06] MEDS: Aspirin 81 mg Enteric Coated Tablet PO SCH (08:41)
[2020-01-06] MEDS: Polyethylene Glycol 3350 17 GM Packet PO SCH (08:41)
[2020-01-06] MEDS: Metoprolol Tartrate 25 MG TAB PO SCH ×2 (08:41→20:10)
[2020-01-06] MEDS: Senokot S 8.6-50 MG TAB PO SCH ×2 (08:41→20:11)
[2020-01-06] MEDS: Clopidogrel Bisulfate 75 MG TAB PO SCH (08:41)
[2020-01-06] MEDS: Nitrofurantoin Monohyd/M-Cryst 100 MG CAP PO SCH ×2 (08:41→20:07)
[2020-01-06] MEDS: Furosemide 40 MG TAB PO SCH (08:41)
[2020-01-06] MEDS: Rivaroxaban 10 MG TAB PO SCH (17:11)
[2020-01-06] MEDS: risperiDONE 1 MG TAB PO SCH (20:05)
[2020-01-06] MEDS: Escitalopram Oxalate 10 mg Tablet PO SCH (20:07)
[2020-01-06] MEDS: Atorvastatin Calcium 40 MG TAB PO SCH (20:07)
[2020-01-07] MEDS: HYDROcodone/Acetaminophen 7.5/325 mg Tablet PO PRN ×3 (05:05→17:45)
[2020-01-07] MEDS: Pregabalin 75 MG CAP PO SCH ×2 (09:13→20:54)
[2020-01-07] MEDS: clonazePAM 0.5 MG TAB PO SCH (09:14)
[2020-01-07] MEDS: Clopidogrel Bisulfate 75 MG TAB PO SCH (09:15)
[2020-01-07] MEDS: Senokot S 8.6-50 MG TAB PO SCH ×2 (09:15→20:57)
[2020-01-07] MEDS: Aspirin 81 mg Enteric Coated Tablet PO SCH (09:15)
[2020-01-07] MEDS: Furosemide 40 MG TAB PO SCH (09:15)
[2020-01-07] MEDS: AMOXicillin 250 MG CAP PO SCH ×3 (09:15→20:53)
[2020-01-07] MEDS: Metoprolol Tartrate 25 MG TAB PO SCH ×2 (09:15→20:56)
[2020-01-07] MEDS: Polyethylene Glycol 3350 17 GM Packet PO SCH (09:16)
--- NOTE | 2020-01-07 10:04 | PRG ---
DATE OF SERVICE: 01/07/2020 SUBJECTIVE: The patient said he is feeling better. He is making excellent progress with physical therapy, transferring easier. He is walking further. He says he is doing well. He is due to see his orthopedic surgeon, Dr. Bach tomorrow. OBJECTIVE: GENERAL: The patient is sitting in physical therapy working his legs. He is alert, talkative, appears comfortable, and in no distress. VITAL SIGNS: Shows that his temperature is 97.9, pulse 88, O2 saturation 93% on room air, blood pressure 115/75. LUNGS: Have good breath sounds. There is occasional little coarse rhonchi, but overall the lungs sound good. HEART: Regular rate. EXTREMITIES: No edema. Incision over the right hip, healing well. LABORATORY DATA: Urine cultures growing Proteus mirabilis. [place] count greater than 100,000, organism sensitive to ampicillin, but resistant to the Macrodantin. ASSESSMENT: 1. Generalized weakness and gait abnormality. a. Following a recent right hip replacement on 12/24/19. b. Improving. Walking further, and transferring better as of 01/06. 2. Avascular necrosis of the right hip. a. Chronic pain with weightbearing. b. Status post right total hip replacement on 12/24/[address] Vargas Bach, orthopedic surgeon at [facility], hospitalized 12/23 until 12/26/19. c. Continued improvement as of 01/06. 3. Chronic obstructive pulmonary disease. a. Complicated by chronic hypoxemia requiring supplemental O2. b. Improved since he has been off cigarettes. The patient is using the O2 intermittently as of 01/06. 4. Hypertension. 5. Severe depression. a. Controlled on Lexapro and risperidone. 6. Coronary artery disease. a. Status post stents and coronary artery bypass, presently asymptomatic. 7. Chronic urinary retention. a. Requires indwelling Romero catheter. b. Changed out on 01/03/2020. 8. Anxiety disorder, controlled. 9. 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 10. Constipation, controlled. 11. Venous insufficiency, controlled. 12. Cigarette abuse. a. Remains off cigarettes during this hospitalization. 13. Peripheral neuropathy, controlled. 14. Urinary tract infection. a. Culture growing Proteus mirabilis, colony count greater than 100,000. b. Resistant to the nitrofurantoin, but sensitive to ampicillin as of 01/06. PLAN: We will stop the Macrobid and place patient on amoxicillin for 7 days. Continue PT and OT. The patient due to see Dr. Bach tomorrow 01/07. Job ID: [id number] [facility]
[2020-01-07 10:47] VITALS: BMI 32.6
[2020-01-07] MEDS: Rivaroxaban 10 MG TAB PO SCH (16:47)
[2020-01-07] MEDS: Escitalopram Oxalate 10 mg Tablet PO SCH (20:56)
[2020-01-07] MEDS: Atorvastatin Calcium 40 MG TAB PO SCH (20:56)
[2020-01-07] MEDS: risperiDONE 1 MG TAB PO SCH (23:09)
[2020-01-08] MEDS: HYDROcodone/Acetaminophen 7.5/325 mg Tablet PO PRN ×3 (02:10→14:54)
[2020-01-08 05:26] LABS: Platelet Count 326 thou/uL (130-400)
[2020-01-08] MEDS ORDERED: clonazePAM 0.5 MG TAB PO SCH (08:00)
[2020-01-08] MEDS: Metoprolol Tartrate 25 MG TAB PO SCH ×2 (08:20→20:26)
[2020-01-08] MEDS: Clopidogrel Bisulfate 75 MG TAB PO SCH (08:20)
[2020-01-08] MEDS: Senokot S 8.6-50 MG TAB PO SCH ×2 (08:20→20:24)
[2020-01-08] MEDS: Furosemide 40 MG TAB PO SCH (08:20)
[2020-01-08] MEDS: Pregabalin 75 MG CAP PO SCH ×2 (08:22→20:27)
[2020-01-08] MEDS: AMOXicillin 250 MG CAP PO SCH ×3 (08:25→20:24)
[2020-01-08] MEDS: Aspirin 81 mg Enteric Coated Tablet PO SCH (08:25)
[2020-01-08] MEDS: Polyethylene Glycol 3350 17 GM Packet PO SCH (08:25)
[2020-01-08] MEDS: Rivaroxaban 10 MG TAB PO SCH (17:10)
[2020-01-08] MEDS: Escitalopram Oxalate 10 mg Tablet PO SCH (20:24)
[2020-01-08] MEDS: risperiDONE 1 MG TAB PO SCH (20:24)
[2020-01-08] MEDS: Atorvastatin Calcium 40 MG TAB PO SCH (20:25)
[2020-01-09] MEDS: HYDROcodone/Acetaminophen 7.5/325 mg Tablet PO PRN ×4 (01:31→20:08)
[2020-01-09] MEDS: Clopidogrel Bisulfate 75 MG TAB PO SCH (08:15)
[2020-01-09] MEDS: Pregabalin 75 MG CAP PO SCH ×2 (08:15→20:07)
[2020-01-09] MEDS: clonazePAM 0.5 MG TAB PO SCH (08:15)
[2020-01-09] MEDS: Aspirin 81 mg Enteric Coated Tablet PO SCH (08:16)
[2020-01-09] MEDS: Furosemide 40 MG TAB PO SCH (08:16)
[2020-01-09] MEDS: Senokot S 8.6-50 MG TAB PO SCH ×2 (08:16→20:12)
[2020-01-09] MEDS: Metoprolol Tartrate 25 MG TAB PO SCH ×2 (08:16→20:11)
[2020-01-09] MEDS: AMOXicillin 250 MG CAP PO SCH ×3 (08:16→20:09)
[2020-01-09] MEDS: Polyethylene Glycol 3350 17 GM Packet PO SCH (08:17)
[2020-01-09] MEDS: Acetaminophen 325 MG TAB PO PRN (11:25)
[2020-01-09] MEDS: Rivaroxaban 10 MG TAB PO SCH (16:23)
[2020-01-09] MEDS: Escitalopram Oxalate 10 mg Tablet PO SCH (20:09)
[2020-01-09] MEDS: Atorvastatin Calcium 40 MG TAB PO SCH (20:10)
[2020-01-09] MEDS: risperiDONE 1 MG TAB PO SCH (20:10)
[2020-01-10] MEDS: HYDROcodone/Acetaminophen 7.5/325 mg Tablet PO PRN ×4 (02:47→20:29)
--- NOTE | 2020-01-10 07:07 | PRG ---
DATE OF SERVICE: 01/08/2020 SUBJECTIVE: The patient said he is doing good today. He thinks he is making progress with his therapy. His hip is feeling better. He is due to see his orthopedic surgeon today. OBJECTIVE: GENERAL: The patient is sitting up in a chair, alert, talkative, appears comfortable, in no distress. VITAL SIGNS: Show a temperature 98.3, pulse 64, respirations 18, O2 saturation 93% on room air, and blood pressure 112/72. LUNGS: Have some very mild rhonchi and wheeze on expiration. Breath sounds are good. HEART: Regular rate. EXTREMITIES: No edema. LABORATORY DATA: His hemoglobin and hematocrit are 12 and 36.1 and a platelet count of 326. ASSESSMENT: 1. Generalized weakness and gait abnormality. a. Following a recent right hip replacement on 12/24/2019. b. Improving. Walking further and transferring easier as of 01/07. 2. Avascular necrosis of the right hip. a. Chronic pain with weightbearing. b. Status post right total hip replacement on 12/24/[address] Vargas Bach. c. Continued improvement as of 01/07. 3. Chronic obstructive pulmonary disease. a. Complicated by chronic hypoxemia requiring supplemental O2. b. Improving. He has remained off cigarettes and using the O2 intermittently as of 01/07. 4. Hypertension. 5. Severe depression. a. Controlled on Lexapro and risperidone. 6. Coronary artery disease. a. Status post stents and coronary artery bypass, presently asymptomatic. 7. Chronic urinary retention. a. Requires indwelling Romero catheter. b. Last changed 01/03/2020. 8. Anxiety disorder, controlled. 9. 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 10. Cigarette abuse. a. Remains off cigarettes during this hospitalization. 11. Peripheral neuropathy. 12. Urinary tract infection. a. Culture growing Proteus mirabilis organism, sensitive to the ampicillin that was started on 01/06. PLAN: Continue present care. Continue PT/OT. The patient is due to see his orthopedic surgeon, Dr. Bach today. Job ID: [id number] [facility]
[2020-01-10] MEDS: Aspirin 81 mg Enteric Coated Tablet PO SCH (08:11)
[2020-01-10] MEDS: clonazePAM 0.5 MG TAB PO SCH (08:11)
[2020-01-10] MEDS: AMOXicillin 250 MG CAP PO SCH ×3 (08:11→20:32)
[2020-01-10] MEDS: Pregabalin 75 MG CAP PO SCH ×2 (08:12→20:33)
[2020-01-10] MEDS: Polyethylene Glycol 3350 17 GM Packet PO SCH (08:13)
[2020-01-10] MEDS: Senokot S 8.6-50 MG TAB PO SCH ×2 (08:13→20:37)
[2020-01-10] MEDS: Clopidogrel Bisulfate 75 MG TAB PO SCH (08:13)
[2020-01-10] MEDS: Metoprolol Tartrate 25 MG TAB PO SCH ×2 (08:13→20:37)
[2020-01-10] MEDS: Furosemide 40 MG TAB PO SCH (08:13)
[2020-01-10] MEDS: Rivaroxaban 10 MG TAB PO SCH (16:53)
[2020-01-10] MEDS: Atorvastatin Calcium 40 MG TAB PO SCH (20:33)
[2020-01-10] MEDS: risperiDONE 1 MG TAB PO SCH (20:34)
[2020-01-10] MEDS: Escitalopram Oxalate 10 mg Tablet PO SCH (20:35)
[2020-01-11] MEDS: HYDROcodone/Acetaminophen 7.5/325 mg Tablet PO PRN ×4 (04:49→20:34)
--- NOTE | 2020-01-11 05:04 | PRG ---
DATE OF SERVICE: 01/10/2020 SUBJECTIVE: The patient said he is doing better. His strength is improving. He is walking better. He is having no trouble from his catheter. OBJECTIVE: GENERAL: The patient is sitting up in a chair, alert, talkative, appears in no distress. VITAL SIGNS: Temperature 97.8, pulse 64, respirations 18, O2 saturation 93% on room air, blood pressure 105/68. LUNGS: Good breath sounds. Some minimal rhonchi on expiration and wheeze. Overall, lungs sound better. HEART: Regular rate. EXTREMITIES: No edema. GENITOURINARY: Urine in Romero tubing and bag clear. ASSESSMENT: 1. Generalized weakness and gait abnormality. a. Following recent right hip replacement on 12/24/2019. b. Improving. Walking further and transferring easier as of 01/09. 2. Avascular necrosis of the right hip. a. Chronic pain with weightbearing. b. Status post right total hip replacement on 12/24/2019 by Vargas Bach. c. Continued improvement as of 01/09. 3. Chronic obstructive pulmonary disease. a. Complicated by chronic hypoxemia requiring supplemental O2. b. Improved since he has been off cigarettes and now using O2 intermittently as of 01/09. 4. Hypertension. 5. Severe depression. a. Controlled on Lexapro and risperidone. 6. Coronary artery disease. a. Status post stents and coronary artery bypass. Presently asymptomatic. 7. Chronic urinary retention. a. Requires indwelling Romero catheter. b. Last changed on 01/03/2020. 8. Anxiety disorder, controlled. 9. 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 10. Cigarette abuse. a. Remains off cigarettes during hospitalization. 11. Peripheral neuropathy, controlled. 12. Urinary tract infection. a. Culture growing Proteus mirabilis, sensitive to ampicillin. Started on amoxicillin on 01/06. b. Remains asymptomatic and afebrile as of 01/09. PLAN: Continue present care. Continue PT and OT. Job ID: [id number] [facility]
[2020-01-11] MEDS: Pregabalin 75 MG CAP PO SCH ×2 (08:09→20:33)
[2020-01-11] MEDS: Senokot S 8.6-50 MG TAB PO SCH ×2 (08:09→20:33)
[2020-01-11] MEDS: clonazePAM 0.5 MG TAB PO SCH (08:09)
[2020-01-11] MEDS: Furosemide 40 MG TAB PO SCH (08:10)
[2020-01-11] MEDS: Aspirin 81 mg Enteric Coated Tablet PO SCH (08:10)
[2020-01-11] MEDS: AMOXicillin 250 MG CAP PO SCH ×3 (08:10→20:32)
[2020-01-11] MEDS: Metoprolol Tartrate 25 MG TAB PO SCH ×2 (08:10→20:35)
[2020-01-11] MEDS: Polyethylene Glycol 3350 17 GM Packet PO SCH (08:10)
[2020-01-11] MEDS: Clopidogrel Bisulfate 75 MG TAB PO SCH (08:10)
[2020-01-11] MEDS: Rivaroxaban 10 MG TAB PO SCH (16:52)
[2020-01-11] MEDS: Atorvastatin Calcium 40 MG TAB PO SCH (20:35)
[2020-01-11] MEDS: Escitalopram Oxalate 10 mg Tablet PO SCH (20:35)
[2020-01-11] MEDS: risperiDONE 1 MG TAB PO SCH (20:35)
[2020-01-12] MEDS: HYDROcodone/Acetaminophen 7.5/325 mg Tablet PO PRN ×3 (07:05→19:01)
[2020-01-12] MEDS: AMOXicillin 250 MG CAP PO SCH ×3 (08:41→20:22)
[2020-01-12] MEDS: Furosemide 40 MG TAB PO SCH (08:41)
[2020-01-12] MEDS: Pregabalin 75 MG CAP PO SCH ×2 (08:42→20:23)
[2020-01-12] MEDS: Senokot S 8.6-50 MG TAB PO SCH ×3 (08:42→20:33)
[2020-01-12] MEDS: Metoprolol Tartrate 25 MG TAB PO SCH ×2 (08:42→20:25)
[2020-01-12] MEDS: Polyethylene Glycol 3350 17 GM Packet PO SCH (08:43)
[2020-01-12] MEDS: clonazePAM 0.5 MG TAB PO SCH (08:43)
[2020-01-12] MEDS: Clopidogrel Bisulfate 75 MG TAB PO SCH (08:43)
[2020-01-12] MEDS: Aspirin 81 mg Enteric Coated Tablet PO SCH (08:43)
--- NOTE | 2020-01-12 11:46 | PRG ---
DATE OF SERVICE: 01/11/2020 SUBJECTIVE: The patient said he is feeling good today. He said he is making good progress with his therapy. OBJECTIVE: GENERAL: The patient is sitting up in a chair. He is alert, talkative, appears comfortable, in no distress. VITAL SIGNS: Temperature 98.7, pulse 78, respirations 22, O2 saturation 95% on room air, blood pressure 112/71. LUNGS: Clear except for some mild rhonchi on expiration. HEART: Regular rate. EXTREMITIES: No edema. ASSESSMENT: 1. Generalized weakness and gait abnormality: a. Following a recent right hip replacement on 12/24/2019. b. Improving, walking further, transferring easier as of 01/10. 2. Avascular necrosis of the right hip: a. Chronic pain with weightbearing. b. Status post right total hip replacement on 12/24/[address] Vargas Bach. c. Continued improvement as of 01/10. 3. Chronic obstructive pulmonary disease: a. Complicated by hypoxemia, requiring supplemental O2. b. Improved since he has been off cigarettes during this hospitalization. Now, using O2 only intermittently as of 01/10. 4. Hypertension. 5. Severe depression: a. Controlled on Lexapro and risperidone. 6. Coronary artery disease: a. Status post stent and coronary artery bypass, presently asymptomatic. 7. Chronic urinary retention: a. Requires indwelling Romero catheter. b. Last changed out on 01/03/2020. 8. Anxiety disorder, controlled. 9. 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 10. Cigarette abuse: a. He has been off cigarettes since his hospitalization. 11. Peripheral neuropathy. 12. Urinary tract infection: a. Culture grew Proteus mirabilis, sensitive to ampicillin that was started on 01/06. b. Remains asymptomatic and afebrile as of 01/10. PLAN: Continue present care, continue PT and OT. Job ID: [id number] [facility]
[2020-01-12] MEDS: Rivaroxaban 10 MG TAB PO SCH (16:55)
[2020-01-12] MEDS: Atorvastatin Calcium 40 MG TAB PO SCH (20:25)
[2020-01-12] MEDS: Escitalopram Oxalate 10 mg Tablet PO SCH (20:26)
[2020-01-12] MEDS: risperiDONE 1 MG TAB PO SCH (20:26)
[2020-01-13] MEDS: HYDROcodone/Acetaminophen 7.5/325 mg Tablet PO PRN ×4 (05:54→23:53)
[2020-01-13] MEDS: Pregabalin 75 MG CAP PO SCH ×2 (08:25→20:17)
[2020-01-13] MEDS: clonazePAM 0.5 MG TAB PO SCH (08:28)
[2020-01-13] MEDS: Polyethylene Glycol 3350 17 GM Packet PO SCH (08:28)
[2020-01-13] MEDS: Clopidogrel Bisulfate 75 MG TAB PO SCH (08:30)
[2020-01-13] MEDS: Metoprolol Tartrate 25 MG TAB PO SCH ×2 (08:30→20:17)
[2020-01-13] MEDS: AMOXicillin 250 MG CAP PO SCH ×3 (08:30→20:18)
[2020-01-13] MEDS: Aspirin 81 mg Enteric Coated Tablet PO SCH (08:30)
[2020-01-13] MEDS: Furosemide 40 MG TAB PO SCH (08:30)
[2020-01-13] MEDS: Senokot S 8.6-50 MG TAB PO SCH ×2 (08:30→20:20)
[2020-01-13] MEDS: Rivaroxaban 10 MG TAB PO SCH (15:58)
[2020-01-13] MEDS: Atorvastatin Calcium 40 MG TAB PO SCH (20:18)
[2020-01-13] MEDS: Escitalopram Oxalate 10 mg Tablet PO SCH (20:18)
[2020-01-13] MEDS: risperiDONE 1 MG TAB PO SCH (20:19)
--- NOTE | 2020-01-14 06:17 | PRG ---
DATE OF SERVICE: 01/13/2020 SUBJECTIVE: The patient said he is doing good today. He had no complaint, hip is feeling better. He is doing better with his therapy. OBJECTIVE: GENERAL: The patient is sitting up in bed, alert, talkative, appears in no distress. VITAL SIGNS: Temp 98, pulse 71, respirations 18, O2 saturation 94% on room air, blood pressure 100/65. LUNGS: Clear. Did not hear any wheeze or rhonchi today. HEART: Regular rate. EXTREMITIES: No edema. ASSESSMENT: 1. Generalized weakness and gait abnormality. a. Following recent hip replacement on 12/23. b. Continues to improve as of 01/12. 2. Avascular necrosis of the right hip. a. Chronic pain with weightbearing. b. Status post right total hip replacement on 12/24/2019 by Vargas Bach. c. Continued improvement. Pain controlled as of 01/12. 3. Chronic obstructive pulmonary disease. a. Complicated by hypoxemia, requiring supplemental O2. b. Improved since he is off the cigarettes and now using O2 only intermittently as of 01/12. 4. Hypertension. 5. Severe depression. a. Controlled on Lexapro and risperidone. 6. Coronary heart disease. a. Asymptomatic. b. Status post coronary artery bypass and stents. 7. Chronic urinary retention. a. Requiring indwelling Romero catheter. Last changed 01/02. 8. Anxiety disorder, controlled. 9. Chronic low back pain from failed surgical back syndrome controlled. 10. Cigarette abuse, been off cigarettes since admission. 11. Peripheral neuropathy. 12. Urinary tract infection. PLAN: Continue present care. Continue PT and OT. Job ID: [id number] [facility]
[2020-01-14] MEDS: Aspirin 81 mg Enteric Coated Tablet PO SCH (08:10)
[2020-01-14] MEDS: Pregabalin 75 MG CAP PO SCH ×2 (08:10→20:38)
[2020-01-14] MEDS: clonazePAM 0.5 MG TAB PO SCH (08:10)
[2020-01-14] MEDS: HYDROcodone/Acetaminophen 7.5/325 mg Tablet PO PRN ×4 (08:11→20:43)
[2020-01-14] MEDS: Clopidogrel Bisulfate 75 MG TAB PO SCH (08:12)
[2020-01-14] MEDS: AMOXicillin 250 MG CAP PO SCH (08:12)
[2020-01-14] MEDS: Furosemide 40 MG TAB PO SCH (08:12)
[2020-01-14] MEDS: Senokot S 8.6-50 MG TAB PO SCH ×2 (08:12→20:40)
[2020-01-14] MEDS: Metoprolol Tartrate 25 MG TAB PO SCH ×2 (08:12→20:40)
[2020-01-14] MEDS: Polyethylene Glycol 3350 17 GM Packet PO SCH (08:12)
--- NOTE | 2020-01-14 10:40 | PRG ---
DATE OF SERVICE: 01/14/2020 SUBJECTIVE: The patient said he is doing fine. He is walking further, getting up and down unassisted, he walks, he has not required an assistive device. OBJECTIVE: GENERAL: The patient is alert. He is just walking back from physical therapy. He appears in no distress. VITAL SIGNS: Show a temperature of 98, pulse 79, respirations 20, O2 saturation 93% on room air, and blood pressure 118/78. LUNGS: Clear. HEART: Regular rate. EXTREMITIES: No edema. ASSESSMENT: 1. Generalized weakness and gait abnormality. a. Following recent hip replacement on 12/23. b. Continues to improve as of 01/13. 2. Avascular necrosis of the right hip. a. Chronic pain with weightbearing. b. Status post right total hip replacement on 12/24/[address] Vargas Bach, orthopedic surgeon. c. Continued improvement. Pain controlled as of 01/13. 3. Chronic obstructive pulmonary disease. a. Complicated by hypoxemia, requiring supplemental O2. b. Improved since he has been off cigarettes, now uses the O2 intermittently as of 01/13. 4. Hypertension. 5. Severe depression. a. Controlled, on Lexapro and risperidone. 6. Coronary heart disease. a. Asymptomatic. b. Status post coronary artery bypass and stents. 7. Chronic urinary retention. a. Requiring indwelling Romero catheter. Last changed on 01/02. 8. Anxiety disorder, controlled. 9. Chronic low back pain with failed surgical back syndrome, controlled. 10. Cigarette abuse, has been off cigarettes since admission. 11. Peripheral neuropathy. 12. Urinary tract infection, treated. PLAN: Continue present care. Continue PT and OT. Anticipate discharge tomorrow. Job ID: [id number] [facility]
[2020-01-14] MEDS: Rivaroxaban 10 MG TAB PO SCH (16:28)
[2020-01-14] MEDS: risperiDONE 1 MG TAB PO SCH (20:40)
[2020-01-14] MEDS: Atorvastatin Calcium 40 MG TAB PO SCH (20:41)
[2020-01-14] MEDS: Escitalopram Oxalate 10 mg Tablet PO SCH (20:41)
[2020-01-15 07:08] VITALS: BP 109/74; TEMP 97.6
[2020-01-15] MEDS: Clopidogrel Bisulfate 75 MG TAB PO SCH (08:03)
[2020-01-15] MEDS: Aspirin 81 mg Enteric Coated Tablet PO SCH (08:03)
[2020-01-15] MEDS: clonazePAM 0.5 MG TAB PO SCH (08:03)
[2020-01-15] MEDS: Pregabalin 75 MG CAP PO SCH (08:03)
[2020-01-15] MEDS: Polyethylene Glycol 3350 17 GM Packet PO SCH (08:04)
[2020-01-15] MEDS: HYDROcodone/Acetaminophen 7.5/325 mg Tablet PO PRN ×2 (08:04→12:09)
[2020-01-15] MEDS: Furosemide 40 MG TAB PO SCH (08:04)
[2020-01-15] MEDS: Senokot S 8.6-50 MG TAB PO SCH (08:04)
[2020-01-15] MEDS: Metoprolol Tartrate 25 MG TAB PO SCH (08:04)
--- NOTE | 2020-01-16 11:52 | DIS ---
DATE OF ADMISSION: 12/26/2019 DATE OF DISCHARGE: 01/15/2020 FINAL DIAGNOSES: 1. Generalized weakness and gait abnormality. a. Following hip replacement on 01/02. b. Ambulating up to 200 feet several times a day without an assistive device and only supervision, transferring independently as of 01/14. 2. Avascular necrosis of the right hip. a. It was causing chronic pain with weightbearing. b. Status post right total hip replacement on 12/24/[address] Vargas Bach, orthopedic surgeon, at [facility], hospitalized from 12/23 to 12/26/2019. c. Continued improvement and healing as of 01/14. 3. Chronic obstructive pulmonary disease. a. Complicated by hypoxemia requiring supplemental O2. b. Improved since he has been off cigarettes, now using the O2 intermittently as of 01/14. 4. Hypertension. 5. Severe depression. a. Controlled on Lexapro and risperidone. 6. Coronary artery disease. a. Status post stents and coronary artery bypass. b. Asymptomatic. 7. Chronic urinary retention requiring indwelling Romero catheter. Last change out on 01/02. 8. Anxiety disorder, controlled. 9. Chronic low back pain from failed surgical back syndrome, controlled. 10. Cigarette abuse, for which he has been off cigarettes since admission. 11. Peripheral neuropathy. 12. Urinary tract infection, for which he completed treatment. SUMMARY: The patient is a 64-year-old white male, who has a history of coronary artery disease, for which he has had stents and bypass surgery that is presently asymptomatic. He has COPD requiring supplemental O2; chronic cigarette abuse; hypertension; severe depression, has been controlled on Lexapro and risperidone. He also has chronic urinary retention and for years has had a Romero catheter that is changed out about every 2 weeks. He has peripheral neuropathy of the lower extremities. The patient had developed avascular necrosis of the right hip and was having severe pain in that right hip with any weightbearing. He was hospitalized at [facility] from 12/23 until 12/25, where he underwent a right total hip arthroplasty by orthopedic surgeon, Dr. Vargas Bach. His postop course was uncomplicated and he was transferred to [facility] for continued rehabilitation on 08/25. His hospital care here has been uneventful. His incision healed up well. He was seen in followup visit [address] Bach, who was happy with his progress and removed the skin sudeep. He has made progressive progress with his therapy. By the time of his discharge, he was walking up to 200 feet several times a day with just standby assistance. He was transferring with only standby assistance. His lungs initially had lot of rhonchi and wheezes that are usually chronic for him, so during his hospitalization, he remained off the cigarettes and his need for supplemental O2 diminished and his O2 saturation remained around 94% on room air. His blood pressure remained under good control. He remained off his cigarettes during his hospitalization. He did develop urinary tract infection with Proteus mirabilis that was sensitive to amoxicillin, for which he was treated. His catheter was changed out last on 01/03/2020. Usually, this is changed out every 2 weeks. He says that the home health nurses do this. He uses a 22-[place] with a 30 mL balloon with 25 mL of fluid instilled. He is followed by urologist in [place]. By 01/14, his condition had improved such that it is felt like he could now be managed at home. We will arrange for [facility] to help pick back up on his care to manage his catheter and also for in-home PT and OT. He received Xarelto for post op DVT prophylaxis. This was stopped at discharge since he mobilizing well.He will still be on his aspirin and Plavix. DISPOSITION: DIET: Regular diet, no added salt. ACTIVITIES: Ambulate within his capability. We will arrange for [facility] to see patient for in-home PT and OT and also catheter care. He will be due a change out of the catheter on 01/16. Encouraged patient not to smoke. MEDICATIONS: 1. Tylenol 325 mg two every 4 hours as needed. 2. Proventil inhaler 2 puffs every 4 hours as needed. 3. DuoNebs by nebulizer q.i.d. 4. Aspirin 81 mg daily. 5. Atorvastatin 40 mg at bedtime. 6. Clonazepam 1 mg daily. 7. Plavix 75 mg daily. 8. Colace 100 mg daily p.r.n. 9. Lexapro 20 mg at bedtime. 10. Furosemide 40 mg daily. 11. Hydrocodone and acetaminophen 7.5/325 one every 6 hours as needed for pain. 12. Metoprolol tartrate 25 mg b.i.d. 13. Nitroglycerin 0.4 mg p.r.n. chest pain. 14. MiraLAX 17 g in 8 ounces of water daily. 15. Lyrica 300 mg b.i.d. 16. Risperidone 2 mg at bedtime. 17. Senokot S one b.i.d. FOLLOWUP: Patient should see Dr. Bach in followup in 2 weeks. The patient will follow up with Dr. Vargas Bach. Patient will follow up with myself in 2 weeks. Home Health should draw CBC and basic metabolic panel. CODE STATUS: Full code. Job ID: [id number] [facility]
== END 2020-01-15 12:45 | disposition home health service (06) | DRG 948 ==
LOC: MADMS 16:20
PROVIDERS: ADMIT Family Medicine; ATTEND Family Medicine
DX: R53.1 Weakness (principal); N39.0 Urinary tract infection, site not specified; M87.9 Osteonecrosis, unspecified; I25.10 Atherosclerotic heart disease of native coronary artery without angina pectoris; J44.9 Chronic obstructive pulmonary disease, unspecified; F41.9 Anxiety disorder, unspecified; K21.9 Gastro-esophageal reflux disease without esophagitis; E66.9 Obesity, unspecified; F32.9 Major depressive disorder, single episode, unspecified; G47.33 Obstructive sleep apnea (adult) (pediatric); R09.02 Hypoxemia; K59.00 Constipation, unspecified; F17.210 Nicotine dependence, cigarettes, uncomplicated; R33.9 Retention of urine, unspecified; G62.9 Polyneuropathy, unspecified; E78.5 Hyperlipidemia, unspecified; Z90.49 Acquired absence of other specified parts of digestive tract; Z95.1 Presence of aortocoronary bypass graft; Z95.5 Presence of coronary angioplasty implant and graft; Z79.82 Long term (current) use of aspirin; Z79.01 Long term (current) use of anticoagulants; Z79.899 Other long term (current) drug therapy; Z88.2 Allergy status to sulfonamides; Z88.1 Allergy status to other antibiotic agents; Z88.8 Allergy status to other drugs, medicaments and biological substances; Z68.32 Body mass index [BMI] 32.0-32.9, adult; Z20.828 Contact with and (suspected) exposure to other viral communicable diseases
CPT/HCPCS: 36415; 80053; 80061; 81003; 81015; 85014; 85018; 85025; 85049; 87077; 87086; 87186; 90471; 90662; 94640; G0008; J7620

== ENCOUNTER 2020-01-23 09:28 | Outpatient (CLI) | payer MEDICARE ==
[2020-01-23 09:43] LABS: #Basophils 0.1 thou/uL (0.0-0.2); #Eosinphils 0.4 thou/uL (0.0-0.7); #Monocytes 0.6 thou/uL (0.11-0.59); #Neutrophils 3.2 thou/uL (1.40-6.50); %Basophils 1.9 % (0.0-1.0); %Eosinophils 6.9 % (0.0-10.0); %Lymphocytes 31.4 % (21.0-51.0); %Monocytes 9.3 % (0.0-10.0); %Neutrophils 50.6 % (42.0-75.0); Hemoglobin 13.2 g/dL (14.0-18.0); Mean Corpuscular HGB CONC 30.8 g/dL (32.0-36.0); Mean Corpuscular Hemoglobin 29.5 pg (27.0-31.0); Mean Corpuscular Volume 95.8 fL (78.0-98.0); Mean Platelet Volume 7.2 fL (7.4-10.4); Platelet Count 204 thou/uL (130-400); RBC Distribution Width 13.8 % (11.5-14.5); Red Blood Cell (RBC) Count 4.49 mill/uL (4.70-6.10); White Blood Cell (WBC) Count 6.4 thou/uL (4.8-10.8)
[2020-01-23 09:58] LABS: ALT (SGPT) 25 U/L (8-55); AST (SGOT) 16 U/L (5-34); Alkaline Phosphatase 133 U/L (40-110); Anion Gap 16 mmol/L (10-20); BUN (Urea Nitrogen) 12 mg/dL (8.4-25.7); Bilirubin, Total 0.6 mg/dL (0.2-1.2); Calc. Creatinine Clearance 0 mL/min (70-130); Calcium 9.4 mg/dL (7.8-10.44); Carbon Dioxide 27 mmol/L (23-31); Chloride 104 mmol/L (98-107); Estimated GFR-MDRD 82; Globulin 2.8 g/dL (2.4-3.5); Glucose 85 mg/dL (80-115); Protein, Total 6.8 g/dL (5.8-8.1); Sodium 143 mmol/L (136-145)
== END 2020-01-23 09:29 | disposition home or self-care (01) ==
LOC: MADLAB 09:28
PROVIDERS: ATTEND Family Medicine
DX: I12.9 Hypertensive chronic kidney disease with stage 1 through stage 4 chronic kidney disease, or unspecified chronic kidney disease (principal); N18.2 Chronic kidney disease, stage 2 (mild); I25.10 Atherosclerotic heart disease of native coronary artery without angina pectoris
CPT/HCPCS: 80053; 85025

== ENCOUNTER 2020-05-12 15:30 | Outpatient (CLI) | payer MEDICARE ==
[2020-05-12 16:04] LABS: Clarity Cloudy (Clear); Glucose, Urine (Dipstick) Negative (Negative); Leukocyte Small (Negative); Nitrite Negative (Negative); Protein, Urine (Dipstick) Negative (Neg-Trace)
[2020-05-12 16:05] LABS: Bilirubin Negative (Negative); Blood, Urine Trace (Negative); Ketone, Urine Negative (Negative); Urobilinogen 0.2 mg/dL (Less than 2)
[2020-05-12 16:06] LABS: Bacteria/HPF 4+ HPF (None Seen); RBC/HPF 0-3 HPF (0-3)
[2020-05-12 16:25] LABS: #Basophils 0.1 thou/uL (0.0-0.2); #Eosinphils 0.4 thou/uL (0.0-0.7); #Lymphocytes 1.8 thou/uL (1.20-3.40); #Monocytes 0.5 thou/uL (0.11-0.59); #Neutrophils 5.3 thou/uL (1.40-6.50); %Basophils 0.8 % (0.0-1.0); %Eosinophils 4.8 % (0.0-10.0); %Lymphocytes 22.3 % (21.0-51.0); %Monocytes 6.5 % (0.0-10.0); %Neutrophils 65.6 % (42.0-75.0); ALT (SGPT) 23 U/L (8-55); AST (SGOT) 13 U/L (5-34); Alkaline Phosphatase 131 U/L (40-110); Anion Gap 17 mmol/L (10-20); BUN (Urea Nitrogen) 10 mg/dL (8.4-25.7); Bilirubin, Total 0.6 mg/dL (0.2-1.2); Calc. Creatinine Clearance 0 mL/min (70-130); Calcium 9.3 mg/dL (7.8-10.44); Carbon Dioxide 26 mmol/L (23-31); Cardiac Risk 4.2 (Less than 4.5); Chloride 104 mmol/L (98-107); Cholesterol 109 mg/dl (< 200 Desired); Globulin 2.5 g/dL (2.4-3.5); Glucose 151 mg/dL (80-115); HDL Cholesterol 26 mg/dL (>60 Neg Risk); Hemoglobin 15.4 g/dL (14.0-18.0); LDL Cholesterol, Calculated 57 mg/dL; Mean Corpuscular Hemoglobin 29.4 pg (27.0-31.0); Mean Corpuscular Volume 91.9 fL (78.0-98.0); Mean Platelet Volume 7.2 fL (7.4-10.4); Platelet Count 216 thou/uL (130-400); Protein, Total 6.5 g/dL (5.8-8.1); RBC Distribution Width 13.9 % (11.5-14.5); Red Blood Cell (RBC) Count 5.25 mill/uL (4.70-6.10); Sodium 143 mmol/L (136-145); Triglycerides 131 mg/dL (Less than 150)
== END 2020-05-12 15:31 | disposition home or self-care (01) ==
LOC: MADLABSP 15:30
PROVIDERS: ATTEND Family Medicine
DX: Z46.6 Encounter for fitting and adjustment of urinary device (principal); J44.9 Chronic obstructive pulmonary disease, unspecified; N18.2 Chronic kidney disease, stage 2 (mild); I25.10 Atherosclerotic heart disease of native coronary artery without angina pectoris
CPT/HCPCS: 80053; 80061; 81001; 85025; 87086

== ENCOUNTER 2020-10-08 12:54 | Outpatient (CLI) | payer MEDICARE | END 2020-10-08 12:55 | disposition home or self-care (01) | LOC: MADCT 12:54 | PROVIDERS: ATTEND Family Medicine | DX: R10.9 Unspecified abdominal pain (principal); K57.32 Diverticulitis of large intestine without perforation or abscess without bleeding; Z90.49 Acquired absence of other specified parts of digestive tract | CPT/HCPCS: 36415; 74177; 82565 ==

== ENCOUNTER 2022-01-12 15:33 | Emergency (ER) | payer MEDICARE ==
[~2022-01-12 15:33] MED LIST changes: -Albuterol Sulfate 2.5 mg/0.5 ml Neb ONE
[2022-01-12 16:56] LABS: ALT (SGPT) 14 U/L (8-55); AST (SGOT) 17 U/L (5-34); Albumin 4.4 g/dL (3.4-4.8); Alkaline Phosphatase 136 U/L (40-110); Anion Gap 17 mmol/L (10-20); BUN (Urea Nitrogen) 8 mg/dL (8.4-25.7); Bilirubin, Total 1.8 mg/dL (0.2-1.2); Calc. Creatinine Clearance 0 mL/min (70-130); Calcium 10.7 mg/dL (7.8-10.44); Carbon Dioxide 22 mmol/L (23-31); Chloride 100 mmol/L (98-107); Estimated GFR 85; Globulin 3.9 g/dL (2.4-3.5); Glucose 118 mg/dL (80-115); Potassium 4.1 mmol/L (3.5-5.1); Protein, Total 8.3 g/dL (5.8-8.1); Sodium 135 mmol/L (136-145)
[2022-01-12 17:06] LABS: Band 2 % (5-11); Eosinophils 3 % (0-10); Hemoglobin 16.9 g/dL (14.0-18.0); Lymphocytes 30 % (21-51); MDiff Complete? YES; Mean Corpuscular HGB CONC 31.9 g/dL (32.0-36.0); Mean Corpuscular Hemoglobin 28.9 pg (27.0-31.0); Mean Corpuscular Volume 90.6 fl (78.0-98.0); Mean Platelet Volume 7.9 fL (7.4-10.4); Monocytes 8 % (0-10); Neutrophil 57 % (42-75); Platelet Count 294 thou/uL (130-400); RBC Distribution Width 12.3 % (11.5-14.5); Red Blood Cell (RBC) Count 5.85 mill/uL (4.70-6.10); White Blood Cell (WBC) Count 7.7 thou/uL (4.8-10.8)
[2022-01-12 17:10] LABS: Lipase 8 U/L (8-78)
[2022-01-12] MEDS ORDERED: Morphine 4 MG/ML VIAL ONE (17:55)
[2022-01-12] MEDS ORDERED: Sodium Chloride 0.9% 1,000 ML ONE ×2 (17:55→19:08)
[2022-01-12] MEDS ORDERED: Ondansetron PF 4 MG/2 ML Vial ONE (17:55)
[2022-01-12 19:23] LABS: Bilirubin Small (Negative); Blood, Urine Negative (Negative); Glucose, Urine (Dipstick) Negative (Negative); Ketone, Urine 15 mg/dL (Negative); Leukocyte Large (Negative); Nitrite Negative (Negative); Protein, Urine (Dipstick) 30 mg/dL (Neg-Trace)
[2022-01-12 19:24] LABS: Clarity Cloudy (Clear); pH, Urine Greater/Equal 9.0 (5.0-9.0)
[2022-01-12 19:25] LABS: Bacteria/HPF 3+ HPF (None Seen); RBC/HPF 0-3 HPF (0-3); Squamous Epithelial 0-3 HPF (0-3)
[2022-01-12] MEDS ORDERED: Amoxicillin/Potassium Clav 875 MG TAB ONE (19:51)
[2022-01-12 20:03] LABS: Lactic Acid 0.8 mmol/L (0.5-2.2)
== END 2022-01-12 20:40 | disposition home or self-care (01) ==
LOC: MADERS 15:33
DX: R11.2 Nausea with vomiting, unspecified (principal); R19.7 Diarrhea, unspecified; N39.0 Urinary tract infection, site not specified; I25.10 Atherosclerotic heart disease of native coronary artery without angina pectoris; K21.9 Gastro-esophageal reflux disease without esophagitis; J44.9 Chronic obstructive pulmonary disease, unspecified; I10 Essential (primary) hypertension; F17.210 Nicotine dependence, cigarettes, uncomplicated
CPT/HCPCS: 36415; 71045; 74177; 80053; 81003; 81015; 83605; 83690; 84484; 85025; 86140; 87086; 96361; 96374; 96375; J2270; J2405; J7050; Q9967

== ENCOUNTER 2022-07-08 14:41 | Outpatient (CLI) | payer MEDICARE | END 2022-07-08 14:42 | disposition home or self-care (01) | LOC: MADRAD 14:41 | PROVIDERS: ATTEND Internal Medicine | DX: J44.9 Chronic obstructive pulmonary disease, unspecified (principal) | CPT/HCPCS: 71046 ==

== ENCOUNTER 2022-07-12 14:00 | Emergency (ER) | payer MEDICARE ==
[2022-07-12] MEDS ORDERED: Fluorescein Opthalmic Strip ONE (14:17)
[2022-07-12] MEDS ORDERED: Tetracaine 0.5% PF 4 ML BOT ONE (14:17)
== END 2022-07-12 14:52 | disposition home or self-care (01) ==
LOC: MADERS 14:00
DX: S05.01XA Injury of conjunctiva and corneal abrasion without foreign body, right eye, initial encounter (principal); I25.10 Atherosclerotic heart disease of native coronary artery without angina pectoris; K21.9 Gastro-esophageal reflux disease without esophagitis; J45.909 Unspecified asthma, uncomplicated; I10 Essential (primary) hypertension; F17.210 Nicotine dependence, cigarettes, uncomplicated; X58.XXXA Exposure to other specified factors, initial encounter
CPT/HCPCS: 99283

== ENCOUNTER 2023-03-22 14:15 | Emergency (ER) | payer MEDICARE ==
[2023-03-22] MEDS ORDERED: Ipratropium/Albuterol 3 ML NEB ONE ×3 (14:20→16:03)
[2023-03-22 15:12] LABS: Hemoglobin 15.3 g/dL (14.0-18.0); Mean Corpuscular HGB CONC 32.5 g/dL (32.0-36.0); Mean Corpuscular Hemoglobin 31.8 pg (27.0-31.0); Mean Corpuscular Volume 97.9 fl (78.0-98.0); Mean Platelet Volume 8.3 fL (7.4-10.4); Platelet Count 231 10x3/uL (130-400); RBC Distribution Width 13.3 % (11.5-14.5); White Blood Cell (WBC) Count 13.1 10x3/uL (4.8-10.8)
[2023-03-22 15:20] LABS: Anion Gap 16 mmol/L (10-20); BUN (Urea Nitrogen) 7 mg/dL (8.4-25.7); Calc. Creatinine Clearance 0 mL/min (70-130); Carbon Dioxide 23 mmol/L (23-31); Chloride 103 mmol/L (98-107); Sodium 138 mmol/L (136-145)
[2023-03-22 15:21] LABS: ALT (SGPT) 19 U/L (8-55); AST (SGOT) 11 U/L (5-34); Albumin 3.9 g/dL (3.4-4.8); Alkaline Phosphatase 178 U/L (40-110); Calcium 9.6 mg/dL (7.8-10.44); Estimated GFR 80; Glucose 194 mg/dL (80-115); Magnesium 1.5 mg/dL (1.6-2.6); Protein, Total 6.9 g/dL (5.8-8.1)
[2023-03-22] MEDS ORDERED: methylPREDNISolone Sod Succ/PF 125 MG/2 ML VIAL ONE (15:22)
[2023-03-22 15:43] LABS: SARS-CoV-2 NAA Rapid Test Not Detected (NotDetected)
[2023-03-22 15:46] LABS: Band 11 % (5-11); Eosinophils 2 % (0-10); Lymphocytes 14 % (21-51); MDiff Complete? YES; Monocytes 1 % (0-10); Neutrophil 65 % (42-75); Platelet Adequacy Comment Appears Adequate
[2023-03-22 15:58] LABS: Troponin I 0.012 ng/mL (< 0.028)
[2023-03-22] MEDS ORDERED: Magnesium 2 GM/50 ML BAG (IN WATER) ONE (16:03)
[2023-03-22] MEDS ORDERED: Sodium Chloride 0.9% 500 ML ONE (16:03)
== END 2023-03-22 17:23 | disposition home or self-care (01) ==
LOC: MADERS 14:15
DX: J44.1 Chronic obstructive pulmonary disease with (acute) exacerbation (principal); F17.210 Nicotine dependence, cigarettes, uncomplicated; I12.9 Hypertensive chronic kidney disease with stage 1 through stage 4 chronic kidney disease, or unspecified chronic kidney disease; N18.9 Chronic kidney disease, unspecified
CPT/HCPCS: 71045; 80053; 83605; 83735; 83880; 84484; 85025; 93005; 96365; 96375; J2930; J3475; J7030; J7620

== ENCOUNTER 2023-05-07 11:06 | Emergency (ER) | payer MEDICARE ==
[2023-05-07] MEDS ORDERED: Bacitracin 1 PK ONE (11:45)
== END 2023-05-07 12:06 | disposition home or self-care (01) ==
LOC: MADERS 11:06
DX: T20.20XA Burn of second degree of head, face, and neck, unspecified site, initial encounter (principal); T31.0 Burns involving less than 10% of body surface; J44.9 Chronic obstructive pulmonary disease, unspecified; F17.210 Nicotine dependence, cigarettes, uncomplicated; X19.XXXA Contact with other heat and hot substances, initial encounter
CPT/HCPCS: 16000; 99283

== ENCOUNTER 2023-06-03 15:17 | Emergency (ER) | payer MEDICARE ==
[2023-06-03] MEDS ORDERED: Ipratropium/Albuterol 3 ML NEB ONE (16:50)
[2023-06-03] MEDS ORDERED: methylPREDNISolone Sod Succ/PF 125 MG/2 ML VIAL ONE (16:50)
[2023-06-03 17:04] LABS: #Basophils 0.2 thou/uL (0.0-0.2); #Eosinphils 0.1 thou/uL (0.0-0.7); #Lymphocytes 1.9 thou/uL (1.20-3.40); #Monocytes 1.1 thou/uL (0.11-0.59); #Neutrophils 9.5 thou/uL (1.40-6.50); %Basophils 1.5 % (0.0-1.0); %Eosinophils 0.5 % (0.0-10.0); %Lymphocytes 15.1 % (21.0-51.0); %Monocytes 8.7 % (0.0-10.0); %Neutrophils 74.2 % (42.0-75.0); Hematocrit 46.4 % (42.0-52.0); Hemoglobin 14.6 g/dL (14.0-18.0); Mean Corpuscular HGB CONC 31.5 g/dL (32.0-36.0); Mean Corpuscular Hemoglobin 30.2 pg (27.0-31.0); Mean Corpuscular Volume 95.7 fl (78.0-98.0); Mean Platelet Volume 7.6 fL (7.4-10.4); Platelet Count 312 10x3/uL (130-400); RBC Distribution Width 14.5 % (11.5-14.5); Red Blood Cell (RBC) Count 4.84 mill/uL (4.70-6.10); White Blood Cell (WBC) Count 12.8 10x3/uL (4.8-10.8)
[2023-06-03 17:19] LABS: Troponin I Less than 0.010 ng/mL (< 0.028)
[2023-06-03 17:22] LABS: ALT (SGPT) 20 U/L (8-55); AST (SGOT) 26 U/L (5-34); Albumin 3.4 g/dL (3.4-4.8); Alkaline Phosphatase 124 U/L (40-110); Anion Gap 20 mmol/L (10-20); BUN (Urea Nitrogen) 23 mg/dL (8.4-25.7); Bilirubin, Total 1.6 mg/dL (0.2-1.2); Calc. Creatinine Clearance 0 mL/min (70-130); Calcium 9.6 mg/dL (7.8-10.44); Carbon Dioxide 26 mmol/L (23-31); Chloride 96 mmol/L (98-107); Estimated GFR 75; Globulin 3.6 g/dL (2.4-3.5); Glucose 85 mg/dL (80-115); Potassium 4.6 mmol/L (3.5-5.1); Sodium 137 mmol/L (136-145)
[2023-06-03 17:23] LABS: Base Excess-Venous 9.5 mmol/L (-2.0 to 3.0); CO2 Tension (PvCO2) 43.1 mmHg (42.0-51.0); Calcium, Ionized 1.13 mmol/L (1.15-1.33); Chloride 98 mmol/L (98-107); Hemoglobin - Calc 18.1 g/dL (14.0-18.0); Potassium 5.8 mmol/L (3.5-5.1); Sodium 136 mmol/L (138-145); T. Carbon Dioxide 35.3 mmol/L (22.0-28.0); vO2 Saturation-calc 82.1 % (60.0-85.0)
[2023-06-03 18:09] LABS: Bilirubin Small (Negative); Blood, Urine Negative (Negative); Clarity Slightly Cloudy (Clear); Glucose, Urine (Dipstick) Negative (Negative); Ketone, Urine 40 mg/dL (Negative); Leukocyte Trace (Negative); Nitrite Positive (Negative); Protein, Urine (Dipstick) 30 mg/dL (Neg-Trace)
[2023-06-03 18:10] LABS: CAUTI Indications for Culture Pelvic or flank pain
[2023-06-03 18:14] LABS: Bacteria/HPF 4+ HPF (None Seen); RBC/HPF 0-3 HPF (0-3); WBC/HPF 0-3 HPF (0-3)
[2023-06-03 18:16] LABS: Urine Culture Reflex No No
[2023-06-03 18:37] LABS: Influenza A by NAA Not Detected (NotDetected); Influenza B by NAA Not Detected (NotDetected); SARS-CoV-2 NAA Rapid Test Not Detected (NotDetected)
[2023-06-03] MEDS ORDERED: Vancomycin 1 GM VIAL ONE (19:32)
[2023-06-03] MEDS ORDERED: Sodium Chloride 0.9% 250 ML 0 ML ONE (19:33)
[2023-06-03] MEDS ORDERED: cefTRIAXone (ROCEPHIN) 2 GM VIAL ONE (19:35)
[2023-06-03] MEDS ORDERED: Sodium Chloride 0.9% 100 ML ONE (19:35)
[2023-06-03] MEDS ORDERED: Azithromycin 500 MG VIAL ONE (20:13)
[2023-06-03] MEDS ORDERED: Sodium Chloride 0.9% 250 ML 250 ML ONE (20:13)
== END 2023-06-04 01:52 | disposition short-term general hospital (02) ==
LOC: MADERS 15:17
DX: A41.9 Sepsis, unspecified organism (principal); J18.9 Pneumonia, unspecified organism; R82.71 Bacteriuria; R93.1 Abnormal findings on diagnostic imaging of heart and coronary circulation; I25.10 Atherosclerotic heart disease of native coronary artery without angina pectoris; K21.9 Gastro-esophageal reflux disease without esophagitis; J44.9 Chronic obstructive pulmonary disease, unspecified; I10 Essential (primary) hypertension; F17.210 Nicotine dependence, cigarettes, uncomplicated; Z86.73 Personal history of transient ischemic attack (TIA), and cerebral infarction without residual deficits; Z79.82 Long term (current) use of aspirin; Z79.899 Other long term (current) drug therapy
CPT/HCPCS: 0240U; 71045; 71275; 80053; 81001; 82330; 82435; 82803; 83605; 83880; 84132; 84295; 84484; 85014; 85025; 85379; 87040; 87086; 93005; 96365; 96367; 96375; 99285; J0456; J0696; J2930; J3370; J3490; J7050; J7620; Q9967

== ENCOUNTER 2023-08-30 21:33 | Emergency (ER) | payer MEDICARE ==
[2023-08-30] MEDS ORDERED: Ipratropium/Albuterol 3 ML NEB ONE (21:55)
[2023-08-30] MEDS ORDERED: methylPREDNISolone Sod Succ/PF 125 MG/2 ML VIAL ONE (22:19)
[2023-08-30 22:27] LABS: #Basophils 0.1 thou/uL (0.0-0.2); #Eosinphils 0.1 thou/uL (0.0-0.7); #Lymphocytes 2.7 thou/uL (1.20-3.40); #Monocytes 0.9 thou/uL (0.11-0.59); #Neutrophils 7.9 thou/uL (1.40-6.50); %Basophils 0.9 % (0.0-1.0); %Eosinophils 0.9 % (0.0-10.0); %Lymphocytes 22.7 % (21.0-51.0); %Monocytes 7.9 % (0.0-10.0); %Neutrophils 67.6 % (42.0-75.0); Hematocrit 47.4 % (42.0-52.0); Mean Corpuscular HGB CONC 31.7 g/dL (32.0-36.0); Mean Corpuscular Hemoglobin 29.6 pg (27.0-31.0); Mean Corpuscular Volume 93.6 fl (78.0-98.0); Platelet Count 186 10x3/uL (130-400); Red Blood Cell (RBC) Count 5.06 mill/uL (4.70-6.10); White Blood Cell (WBC) Count 11.7 10x3/uL (4.8-10.8)
[2023-08-30 22:46] LABS: Troponin I 0.016 ng/mL (< 0.028)
[2023-08-30 22:51] LABS: ALT (SGPT) 26 U/L (8-55); AST (SGOT) 11 U/L (5-34); Albumin 3.8 g/dL (3.4-4.8); Alkaline Phosphatase 166 U/L (40-110); Anion Gap 17 mmol/L (10-20); BUN (Urea Nitrogen) 19 mg/dL (8.4-25.7); Bilirubin, Total 0.8 mg/dL (0.2-1.2); Calc. Creatinine Clearance 0 mL/min (70-130); Calcium 9.8 mg/dL (7.8-10.44); Carbon Dioxide 23 mmol/L (23-31); Chloride 101 mmol/L (98-107); Estimated GFR 57; Globulin 2.4 g/dL (2.4-3.5); Glucose 346 mg/dL (80-115); Potassium 4.1 mmol/L (3.5-5.1); Protein, Total 6.2 g/dL (5.8-8.1); Sodium 137 mmol/L (136-145)
== END 2023-08-30 23:04 | disposition home or self-care (01) ==
LOC: MADERS 21:33
DX: J44.1 Chronic obstructive pulmonary disease with (acute) exacerbation (principal); E11.65 Type 2 diabetes mellitus with hyperglycemia; K21.9 Gastro-esophageal reflux disease without esophagitis; I25.10 Atherosclerotic heart disease of native coronary artery without angina pectoris; J44.9 Chronic obstructive pulmonary disease, unspecified; F17.210 Nicotine dependence, cigarettes, uncomplicated; Z79.899 Other long term (current) drug therapy; Z79.82 Long term (current) use of aspirin
CPT/HCPCS: 71045; 80053; 84484; 85025; 93005; 96372; 99285; J2930; 36415; J7620

== ENCOUNTER 2023-09-27 15:21 | Emergency (ER) | payer MEDICARE ==
[2023-09-27 18:45] LABS: Anisocytosis SLIGHT = 6-15 cells (100X) (0-5/hpf); Band 14 % (5-11); CK (CPK) 117 U/L (30-200); Eosinophils 1 % (0-10); Hematocrit 54.3 % (42.0-52.0); Hemoglobin 16.6 g/dL (14.0-18.0); Hypochromia SLIGHT = 6-15 cells (100X) (0-5/hpf); Lipase 12 U/L (8-78); Lymphocytes 17 % (21-51); MDiff Complete? YES; Magnesium 1.7 mg/dL (1.6-2.6); Mean Corpuscular HGB CONC 30.5 g/dL (32.0-36.0); Mean Corpuscular Hemoglobin 28.6 pg (27.0-31.0); Mean Corpuscular Volume 93.7 fl (78.0-98.0); Mean Platelet Volume 6.7 fL (7.4-10.4); Monocytes 10 % (0-10); Neutrophil 55 % (42-75); Platelet Adequacy Comment Appears Adequate; Platelet Count 242 10x3/uL (130-400); RBC Distribution Width 13.6 % (11.5-14.5); Troponin I 0.014 ng/mL (< 0.028); White Blood Cell (WBC) Count 12.8 10x3/uL (4.8-10.8)
[2023-09-27 18:53] LABS: Blood, Urine Negative (Negative); Glucose, Urine (Dipstick) Negative (Negative); Ketone, Urine 15 mg/dL (Negative); Leukocyte Large (Negative); Nitrite Positive (Negative); Protein, Urine (Dipstick) > or equal to 300 mg/dL (Neg-Trace); Specific Gravity, Urine 1.015 (1.005-1.030); pH, Urine 8.5 (5.0-9.0)
[2023-09-27 18:56] LABS: Clarity Cloudy (Clear)
[2023-09-27 18:57] LABS: Bilirubin Unable to Interpret (Negative); Urobilinogen UNABLE TO INTERPRET mg/dL (Less than 2)
[2023-09-27 19:00] LABS: Bacteria/HPF 4+ HPF (None Seen); CAUTI Indications for Culture Pelvic or flank pain; RBC/HPF None Seen HPF (0-3); Triple Phosphate Crystal 1+ HPF (None Seen)
[2023-09-27 19:20] LABS: Urine Culture Reflex Yes Yes
[2023-09-27 19:26] LABS: Influenza A by NAA Not Detected (NotDetected); Influenza B by NAA Not Detected (NotDetected); SARS-CoV-2 NAA Rapid Test Not Detected (NotDetected)
[2023-09-27 19:34] LABS: Anion Gap 17 mmol/L (10-20); Carbon Dioxide 20 mmol/L (23-31); Chloride 104 mmol/L (98-107); Sodium 137 mmol/L (136-145)
[2023-09-27 19:35] LABS: Albumin 4.1 g/dL (3.4-4.8); BUN (Urea Nitrogen) 19 mg/dL (8.4-25.7); Bilirubin, Total 1.1 mg/dL (0.2-1.2); Calc. Creatinine Clearance 0 mL/min (70-130); Calcium 10.1 mg/dL (7.6-10.4); Estimated GFR 59; Globulin 3.4 g/dL (2.4-3.5); Glucose 187 mg/dL (80-115); Protein, Total 7.5 g/dL (5.8-8.1)
[2023-09-27 19:36] LABS: ALT (SGPT) 29 U/L (8-55); AST (SGOT) 21 U/L (5-34); Alkaline Phosphatase 145 U/L (40-110)
[2023-09-27] MEDS ORDERED: Ondansetron PF 4 MG/2 ML Vial ONE (20:23)
[2023-09-27 21:17] LABS: Lactic Acid 1.5 mmol/L (0.5-2.2)
[2023-09-27] MEDS ORDERED: Ipratropium/Albuterol 3 ML NEB ONE (22:08)
[2023-09-27] MEDS ORDERED: Ketorolac Tromethamine 30 MG (1 mL) VIAL ONE (22:09)
[2023-09-27] MEDS ORDERED: Amoxicillin/Potassium Clav 875 MG TAB ONE (22:59)
== END 2023-09-27 23:13 | disposition home or self-care (01) ==
LOC: MADERS 15:21
DX: N39.0 Urinary tract infection, site not specified (principal); E86.0 Dehydration; I25.10 Atherosclerotic heart disease of native coronary artery without angina pectoris; E11.9 Type 2 diabetes mellitus without complications; I10 Essential (primary) hypertension; K21.9 Gastro-esophageal reflux disease without esophagitis; J44.9 Chronic obstructive pulmonary disease, unspecified; F17.210 Nicotine dependence, cigarettes, uncomplicated; Z79.02 Long term (current) use of antithrombotics/antiplatelets; Z79.899 Other long term (current) drug therapy; Z86.73 Personal history of transient ischemic attack (TIA), and cerebral infarction without residual deficits; Z90.49 Acquired absence of other specified parts of digestive tract
CPT/HCPCS: 0240U; 71045; 74177; 80053; 81001; 82550; 83605; 83690; 83735; 83880; 84484; 85025; 87077; 87086; 87186; 93005; J1885; J2405; Q9967; 36415; 96374; 96375; J7620

== ENCOUNTER 2025-01-04 14:00 | Emergency (ER) | payer MEDICARE ==
[2025-01-04] MEDS ORDERED: HYDROcodone/Acetaminophen 5/325 mg Tablet ONE (14:40)
== END 2025-01-04 15:38 | disposition home or self-care (01) ==
LOC: MADERS 14:00
DX: S16.1XXA Strain of muscle, fascia and tendon at neck level, initial encounter (principal); S39.012A Strain of muscle, fascia and tendon of lower back, initial encounter; S49.90XA Unspecified injury of shoulder and upper arm, unspecified arm, initial encounter; R91.8 Other nonspecific abnormal finding of lung field; I25.10 Atherosclerotic heart disease of native coronary artery without angina pectoris; J44.9 Chronic obstructive pulmonary disease, unspecified; E11.9 Type 2 diabetes mellitus without complications; V89.2XXA Person injured in unspecified motor-vehicle accident, traffic, initial encounter; Y93.89 Activity, other specified
CPT/HCPCS: 70450; 72125; 72128; 72131